=== PATIENT | female | born 1955 | race Caucasian/White ===

== ENCOUNTER → 2020-07-25 12:20 | Outpatient (CLI) | payer BC, MEDICARE, SELFPAY ==
--- NOTE | 2020-07-25 12:35 | NM_ITS ---
APPROVED REPORT Exam: Nuclear Stress Test Indication: HTN, DM, HYPERLIPIDEMIA, FM HX, C.P., SOB, FATIGUE Patient Location: Outpatient Stress Tech: Loraine Jacobson ID Tech:Ranad Esquivel SAVANNAHMario RT (R)(N)(M) Ht: 5 ft 1 in Wt: 140 lbs Bra Size: 42C HR: 75 bpm BP: 138/57 mmHg BSA: 1.62 m2 BMI: 26.4 History: HTN, DM, HYPERLIPIDEMIA, FM HX, C.P., SOB, FATIGUE Procedure: Patient received a 0.4 mg of intravenous Lexiscan, resting heart rate 75 bpm, resting blood pressure 138/57 mmHg, with Lexiscan maximum heart rate achived was 90 bpm which is Less than 85 % of the maximum predicted heart rate and blood pressure was 152/60 mmHg. With Lexiscan, patient denied any complaint of chest pain. Electrocardiogram Resting electrocardiogram showed sinus rhythm, with Lexiscan there is less than 1.[address] segment depression noted from the baseline EKG. The EKG portion of the Lexiscan is nondiagnostic. Cardiac Stress and Resting SPECT Images: Cardiac Stress and Resting SPECT images were obtained using technetium 99m Myoview 31.2 mCi stress and 10.32 mCi at rest. Gated SPECT for analysis of segmental wall motion and calculation of the ejection fraction also done. Cardiac stress and resting SPECT images showed decreased tracer activity in the inferior wall which improves on the resting images suggestive of reversible ischemia, there is transient ischemic dilatation of the left ventricle seen, raising the concerns for presence of multivessel coronary artery disease, computer derived ejection fraction is 63% with no regional wall motion abnormality, right ventricle is normal size and contractility. Conclusion: 1. The EKG portion of the Lexiscan is nondiagnostic. 2. Scintigraphic evidence of reversible ischemia involving the inferior wall, there is transient ischemic dilatation of the left ventricle seen, raising the concerns for presence of multivessel coronary artery disease, computer derived ejection fraction is 63% with no segmental wall motion abnormality, right ventricle is normal size and contractility. 3. Abnormal Lexiscan Myoview study. Electronically signed by : Nathan Devlin, 07/26/2020 15:22:03
--- NOTE | 2020-07-25 14:05 | CA_ITS ---
APPROVED REPORT Assistant Professor Of Criminal Justice: LYNETTE Laterality: Bilateral Study Quality: Good, Due to inability to position patient. Indications: right carotid bruit, dizziness Risk Factors Hyperlipidemia Smoking Doppler Spectral Velocity Analysis ECA (R) 182.20/12.90 cm/s ECA (L) 201.10/12.80 cm/s dICA (R) 342.50/56.70 cm/s dICA (L) 212.70/37.20 cm/s Gisell (R) 269.00/66.60 cm/s Gisell (L) 174.20/35.90 cm/s pICA (R) 86.70/15.40 cm/s pICA (L) 124.30/29.50 cm/s dCCA (R) 97.60/17.30 cm/s dCCA (L) 120.80/18.20 cm/s pCCA (R) 95.70/16.70 cm/s mCCA (L) 120.80/20.30 cm/s Vert (R) 107.90/1.90 cm/s Vert (L) 55.10/11.50 cm/s Subcl. 237.00/1.00 cm/s Subl. (L) 192.00/1.00 cm/s ICA/CCA 3.50 ICA/CCA 1.80 Findings Duplex evaluation demonstrates stenosis of the right proximal internal carotid artery in the range of 50-69% with PSV =140 cm/sec, EDV <100 cm/sec, and IC/CC Ratio <4.0.Duplex evaluation demonstrates stenosis of the left proximal internal carotid artery in the range of 50-69% with PSV =140 cm/sec, EDV <100 cm/sec, and IC/CC Ratio <4.0. Duplex evaluation demonstrates antegrade flow of the bilateral Vertebral Arteries. Right mid Internal carotid artery velocity exceeds 341 cm/sec, upper limits of stenotic classification. Conclusion Duplex evaluation demonstrates stenosis of the right proximal internal carotid artery in the range of 50-69% with PSV =140 cm/sec, EDV <100 cm/sec, and IC/CC Ratio <4.0.Duplex evaluation demonstrates stenosis of the left proximal internal carotid artery in the range of 50-69% with PSV =140 cm/sec, EDV <100 cm/sec, and IC/CC Ratio <4.0. Duplex evaluation demonstrates antegrade flow of the bilateral Vertebral Arteries. Electronically signed by : Reagan Shafer MD 07/25/2020 17:27:29
--- NOTE | 2020-07-25 14:05 | CA_ITS ---
APPROVED REPORT EXAM: Comprehensive 2D, Doppler, and color-flow Echocardiogram Fruit Packer: Thelma Fournier CRT Ht: 5 ft 2 in Wt: 143lbs BSA: 1.66 BP: 168/71 mmHg Indications: Chest Pain, Shortness of Breath, Hyperlipidemia, Hypertension/HDD, abn ekg. 2D Dimensions LVOT 1.66 cm (M/F) 1.5-2.5 LA Volume 35.90 mL LA Volume Index 21.60 mL/m2 (M/F) 16-34 M-Mode Dimensions RVDd 2.71 cm (0.9-2.6) LA Diam 3.52 cm (1.9-4.0) LVDd 3.74 cm (3.5-5.7) Ao Diam 3.41 cm (2.0-3.7) LVDs 2.60 cm (3.5-5.7) IVSd 1.60 cm (0.6-1.1) PWd 1.35 cm (0.6-1.1) EF (Teich) 58.70% FS 30.50% EDV (Teich) 59.60 mL ESV (Teich) 24.60 mL LV Diastology E Decel Time 280.00 (160-240 msec) E/A Ratio 0.90 MED E' 11.90 (< 7 cm/sec) MED A' 6.80 cm/s E'/MED E' Ratio 7.32 (>14) LAT E' 8.30 (<10 cm/sec) LAT A' 9.70 cm/s E/LAT E' Ratio 10.49 (>14) Aortic Valve AO Peak GR. 10.50 mmHg Mitral Valve MV A Velocity 97.00 (40-130 cm/s) E/A Ratio 0.90 MV Decel. Time 280.00 (160-240 ms) Pulmonary Valve PV Peak Velocity 121.00 (50-150 cm/s) Tricuspid Valve TR P. Velocity 250.00 cm/s Left Ventricle Atrium is mildly enlarged, left ventricle is normal size, mild concentric left ventricular hypertrophy, visually estimated ejection fraction is 55% with no regional wall motion abnormality, Doppler evidence of impaired LV relaxation seen, tissue Doppler is inadequate for estimation of the left atrial pressure. Right Ventricle Right atrium and right ventricle are normal size and contractility. Aortic Valve Aortic valve is minimally thickened and fibrosed, there is no aortic stenosis or aortic insufficiency. Mitral Valve Mitral valve has dense mitral annular calcification involving the posterior mitral leaflet, there is no mitral stenosis, there is mild to moderate eccentric jet of mitral regurgitation seen. Tricuspid Valve Tricuspid grossly normal, there is trace tricuspid regurgitation. Pulmonic Valve Pulmonic valve is poorly visualized. Great Vessels Aortic root is normal size. Pericardium No significant pericardial effusion noted. Conclusion 1. Enlarged left atrium, normal left ventricular size, mild concentric left ventricular hypertrophy, visually estimated ejection fraction 55% with no regional wall motion abnormality, Doppler evidence of impaired LV relaxation seen, tissue Doppler is inadequate for estimation of the left atrial pressure. 2. Mild to moderate mitral and mild tricuspid regurgitation. 3. No significant pericardial effusion noted. Electronically signed by : Nathan Devlin, 07/26/2020 16:40:12
--- NOTE | 2020-07-25 15:18 | CA_ITS ---
APPROVED REPORT Exam: Pharmacologic Technologist: Loraine Jacobson, Ht: 5 ft 7 in Wt: 143 lbs BSA: 1.75 m2 HR: 75 bpm BP: 138/57 mmHg Rhythm: NSR,PVC Medical History Medical History: HTN, Diabetes Medications: Omeprazole,,,,, Alprazolam,,,,, Aspirin,,,,, Metformin,,,,, Vitamin E,,,,, Glipizide,,,,, Meclizine,,,,, DilTiazem,,,,, SpirOnALACTONE,,,,, Levothyoxine,,,,, Furosemide,,,,, Allergies: No known drug allergies Cardiac Risk Factors: HTN, FHX of CAD Stress Test Details Test: LEXISCAN HR Resting HR: 78 bpm Max Heart Rate (APMHR): 153.374808 bpm Max HR Achieved: 92 bpm Target HR (85% APMHR): 130.104056 bpm % of APMHR: 60.13 Recovery HR: 80 bpm BP Resting BP: 138/57 mmHg Max BP: 157/62 mmHg Recovery BP: 139.0/63.0 mmHg ECG Resting ECG: NSR,PVC Clinical Exercise duration: 04:01 min Highest Stage Achieved: Stress ECG Conclusion PT HAD SOA, STOMACH DISCOMFORT, MALAISE, NO CP. RARE PVC. NO SIGNIFICANT ST CHANGES. UNREMARKABLE LEXISCAN STRESS. MYOVIEW IMAGES REPORTED SEPERATELY. Test Summary REST 01:51 . . 78 . 138/ 57 . . Stage 1 . . . . . . . Cardiolite injected Stage 1 01:00 . . 91 . . . . Stage 2 01:00 . . 90 . 152/ 60 . . Stage 3 01:00 . . 88 . . . . Stage 4 01:00 . . 86 . 135/ 53 . . Stage 4 01:01 . . 86 . 135/ 53 . Stop exercise at 04:01 RECOVERY 01:00 . . 84 . . . . RECOVERY 02:00 . . 83 . . . . RECOVERY 03:00 . . 84 . 157/ 62 . . RECOVERY 04:00 . . 83 . 157/ 62 . . RECOVERY 05:00 . . 82 . 139/ 63 . . RECOVERY 05:19 . . 80 . 139/ 63 . . Electronically signed by : Nathan Devlin, 07/26/2020 15:15:04
== END ==
PROVIDERS: PCP Family Medicine; Visit Provider Internal Medicine Cardiovascular Disease
DX: R07.89 Other chest pain (principal); R06.00 Dyspnea, unspecified; R94.31 Abnormal electrocardiogram [ECG] [EKG]; R09.89 Other specified symptoms and signs involving the circulatory and respiratory systems; E11.69 Type 2 diabetes mellitus with other specified complication; E78.5 Hyperlipidemia, unspecified; I10 Essential (primary) hypertension; J44.9 Chronic obstructive pulmonary disease, unspecified; Z82.49 Family history of ischemic heart disease and other diseases of the circulatory system; Z87.891 Personal history of nicotine dependence; Z79.84 Long term (current) use of oral hypoglycemic drugs
CPT/HCPCS: 78452; 93017; 93306; 93880; A9502; J2785

== ENCOUNTER 2020-08-03 09:13 | Day surgery (SDC) | payer BC, MEDICARE, SELFPAY ==
[2020-08-03] VITALS (14 sets, daily range): BP systolic 125–165; BP diastolic 65–97; PULSE 61–80; RESP 16–18; TEMP 36.9; O2SAT 90–98; BMI 25.9
--- NOTE | 2020-08-03 07:17 | IR_ITS ---
APPROVED REPORT Patient Location: Outpatient Handle Assembler: RYAN Alejandra RT (R) PROCEDURES Left heart catheterization Left ventriculogram Selective coronary angiogram Drug-eluting stent deployment to the ostial proximal mid and distal dominant right coronary artery in a contiguous manner INDICATION High risk Myoview, Angina pectoris class III-IV, Coronary disease Informed consent was obtained prior to the procedure. COMPLICATIONS NONE Estimated Blood Loss: LESS THAN 10 ML TECHNIQUE One percent lidocaine used to anesthetize the right anterior aspect of the wrist. The right radial artery was accessed via the Seldinger technique. A 6 Montenegrin sheath was placed in the right radial artery. 2.5 mg of verapamil, 800 mcg of nitroglycerin, 1mg Lidocaine and 5000 U Heparin were given through the arterial sheath. The trap catheter was also used to perform left heart catheterization, left ventriculogram and selective coronary angiogram. At the end of the diagnostic angiogram therapeutic heparin was administered giving a therapeutic ACT. And I Avelina right guide catheter was placed in the right coronary artery and a Choice PT extra-support wire was placed distally. A 3 mm x 12 mm noncompliant balloon was deployed at 18 vignesh reducing the ostial stenosis. This allowed the passage of a 3 mm x 38 mm resolute [place] stent to be placed in the right coronary cusp through the ostia into the proximal segment and deployed at 20 vignesh. A 3 mm x 27 mm balloon was then advanced and would not go beyond the midportion of the right coronary artery. This was never the less still inflated at 20 vignesh. Following this a telescope guide liner was advanced which allowed the delivery of a 2.5 x 27 mm noncompliant balloon to be deployed distally at 15 vignesh and then 20 vignesh in the distal and mid segment. Following this a 2.5 x 38 mm resolute [place] stent was then deployed in the distal right coronary artery at 20 vignesh reducing the critical stenosis. An additional 3 mm x 38 mm resolute Daryl stent was then placed between the 2 stents and deployed at 20 vignesh. LINDA II flow was present at the beginning of the procedure with LINDA-3 flow at the end of the procedure. After achieving excellent angiographic results the apparatus was removed the sheath was removed good hemostasis was achieved using TR banding patient was transferred to the postop holding in stable condition. ANGIOGRAPHIC RESULTS The left main artery Normal The left anterior descending artery Has proximal concentric calcified stenosis with mid vessel 20% stenoses The circumflex artery Is a nondominant yet still large vessel giving rise to 3 moderate to large obtuse marginal arteries. Ostially the circumflex artery has a 50% stenosis which then extends into the ostium of the 2.5 mm first obtuse marginal artery. Following the obtuse marginal artery an additional 40% stenosis is present. In between the second and third obtuse marginal is a 30% stenosis. The second obtuse obtuse marginal artery has mid vessel 30% stenosis while the terminal obtuse marginal artery has a proximal 40 to 50% concentric stenosis The right coronary artery Is a dominant vessel and has an ostial 95% stenosis followed by a proximal 50% followed by mid vessel 70% followed by concentric 80% stenoses followed by distal 90% stenosis. LINDA II flow is present distally with some [id number] collaterals The PEREZ ventriculogram reveals Normal 65% The left ventricular end-diastolic pressure 10 mmHg IMPRESSION Critical dominant right coronary disease as described above Successful reconstruction of the ostial proximal mid and distal dominant right coronary artery reducing critical disease to 0% with 3 contiguous drug-el
[2020-08-03 09:59] LABS: Basophils # 0.1 K/mm3 (0-0.2); Basophils % 0.8 % (0.1-2.0); Eosinophils # 0.2 K/mm3 (0.0-0.4); Eosinophils % 1.8 % (0.1-12.0); Hematocrit 43.9 % (37.0-47.0); Hemoglobin 14.3 g/dL (12.2-16.2); Lymphocytes # 2.5 K/mm3 (0.7-4.5); Lymphocytes % 31.7 % (10-50); Mean Corpuscular HGB Conc 32.7 g/dL (31.8-35.4); Mean Corpuscular Hemoglobin 29.8 pg (27.0-31.2); Mean Corpuscular Volume 91.2 fl (81-99); Monocytes # 0.6 K/mm3 (0.1-1.0); Monocytes % 7.1 % (1.7-9.3); Neutrophils # 4.7 K/mm3 (1.8-7.8); Neutrophils % 58.6 % (37.0-80.0); Platelet Count 153 K/mm3 (142-424); Red Blood Count 4.81 M/mm3 (4.20-5.40); Red Cell Distribution Width 13.6 % (11.5-17.5)
[2020-08-03 10:01] LABS: Chloride 104 mmol/L (98-107); Potassium 4.2 mmoL/L (3.5-5.1); Sodium 138 mmol/L (136-145)
[2020-08-03 10:04] LABS: Anion Gap 12.2 mEq/L (5-15); Blood Urea Nitrogen 8 mg/dl (7-17); Calcium 9.6 mg/dl (8.4-10.2); Carbon Dioxide 26 mmol/L (22.0-30.0); Creatinine Clearance Estimated 56 mL/min (50-200); Estimated Glomerular Filt Rate 83 ml/min (>60); GFR (African American) 101 ML/MIN (>60); Glucose 155 mg/dl (74-100)
[2020-08-03 10:32] LABS: Coronavirus 19 IgG Antibody Positive (Negative); Coronavirus 19 IgM Antibody Positive (Negative)
--- NOTE | 2020-08-03 14:13 | HMH.PHACLD ---
Roxann Medeiros has received discharge medication counseling on the following medications: PATIENT IS CURRENTLY TAKING ASPIRIN 325 MG DAILY AND ROSUVASTATIN 5 MG HS. MD OFFICE STARTED METOPROLOL SUCCINATE 25 MG DAILY ON 08/01/20 BUT PATIENT HAS NOT PICKED UP PRESCRIPTION YET FROM PHARMACY PER PHARMACY. INSTRUCTED PATIENT THAT SHE WOULD HAVE A PRESCRIPTION FOR METOPROLOL SUCCINATE 25 MG DAILY WELL A NEW PRESCRIPTION FOR LOSARTAN 25 MG DAILY. PATIENT ALSO STARTED ON BRILINTA 90 MG BID WHICH WAS FILLED FOR THE FIRST MONTH BY CLINIC PHARMACY.
[2020-08-03 14:34] LABS: CATHL Activated Clotting Time > 400 SEC (74-125)
== END 2020-08-03 14:59 | disposition home or self-care (01) ==
PROVIDERS: PCP Family Medicine; Visit Provider Internal Medicine
DX: I25.118 Atherosclerotic heart disease of native coronary artery with other forms of angina pectoris (principal); R06.00 Dyspnea, unspecified; R94.39 Abnormal result of other cardiovascular function study; E78.5 Hyperlipidemia, unspecified; E11.9 Type 2 diabetes mellitus without complications; J44.9 Chronic obstructive pulmonary disease, unspecified; I65.23 Occlusion and stenosis of bilateral carotid arteries; I10 Essential (primary) hypertension
CPT/HCPCS: 80048; 85025; 85347; 86328; 92928; 93458; 99152; 99153; C1725; C1769; C1876; C9600; J1644; Q9967

== ENCOUNTER → 2020-08-22 14:04 | Outpatient (CLI) | payer BC, MEDICARE, SELFPAY ==
--- NOTE | 2020-08-22 14:06 | US_ITS ---
APPROVED REPORT Exam Type: Ankle to Brachial Index Microcomputer Technician: RT Paty(R) Indications Claudication: Bilaterally Rest Pain: Bilaterally History of Smoking Risk Factors CAD Diabetes History of Smoking Pressures/Indices Right Indices Left Indices Brachial 158.00 mmHg Brachial 145.00 mmHg High Thigh 154.00 mmHg 0.97 High Thigh 123.00 mmHg 0.78 Calf 156.00 mmHg 0.99 Calf 100.00 mmHg 0.63 Ankle(PT) 145.00 mmHg 0.92 Ankle(PT) 125.00 mmHg 0.79 Ankle(DP) 151.00 mmHg 0.96 Ankle(DP) 113.00 mmHg 0.72 Digit 119.00 mmHg 0.75 Digit 91.00 mmHg 0.58 Findings RT GORDON=1.0 LT GORDON=0.8 RT TBI=0.8 LT TBI=0.6 Normal waveforms Normal pulses Left lower extremity calf GORDON ratio is diminished at 0.63 as was the left digit ratio of 0.58 Conclusion RT GORDON=1.0 LT GORDON=0.8 RT TBI=0.8 LT TBI=0.6 Normal waveforms Normal pulses Left lower extremity calf GORDON ratio is diminished at 0.63 suggesting moderate arterial disease Electronically signed by : Reagan Shafer MD 08/22/2020 16:42:14
== END ==
PROVIDERS: PCP Family Medicine; Visit Provider Physician Assistant
DX: R06.00 Dyspnea, unspecified (principal); I65.23 Occlusion and stenosis of bilateral carotid arteries; E11.9 Type 2 diabetes mellitus without complications; E78.5 Hyperlipidemia, unspecified; I10 Essential (primary) hypertension; I73.9 Peripheral vascular disease, unspecified; J44.9 Chronic obstructive pulmonary disease, unspecified; Z79.84 Long term (current) use of oral hypoglycemic drugs
CPT/HCPCS: 93923

== ENCOUNTER → 2020-12-03 11:37 | Outpatient (CLI) | payer BC, MEDICARE, SELFPAY ==
[2020-12-03 11:59] LABS: Basophils # 0.1 K/mm3 (0-0.2); Basophils % 0.7 % (0.1-2.0); Eosinophils # 0.2 K/mm3 (0.0-0.4); Eosinophils % 2.8 % (0.1-12.0); Hematocrit 42.8 % (37.0-47.0); Lymphocytes # 2.1 K/mm3 (0.7-4.5); Mean Corpuscular HGB Conc 32.7 g/dL (31.8-35.4); Mean Corpuscular Hemoglobin 31.4 pg (27.0-31.2); Mean Corpuscular Volume 95.9 fl (81-99); Mean Platelet Volume 8.3 fl (7.4-10.4); Monocytes # 0.5 K/mm3 (0.1-1.0); Monocytes % 7.1 % (1.7-9.3); Neutrophils # 4.3 K/mm3 (1.8-7.8); Neutrophils % 60.3 % (37.0-80.0); Platelet Count 148 K/mm3 (142-424); Red Blood Count 4.46 M/mm3 (4.20-5.40); Red Cell Distribution Width 13.2 % (11.5-17.5); White Blood Count 7.1 K/mm3 (4.8-10.8)
[2020-12-03 12:23] LABS: Troponin I < 0.01 ng/ml (0.00-0.034)
[2020-12-03 12:25] LABS: Free T4 (Free Thyroxine) 1.22 ng/dl (0.78-2.19)
[2020-12-03 20:56] LABS: Chloride 103 mmol/L (98-107)
[2020-12-03 20:57] LABS: Potassium 3.9 mmoL/L (3.5-5.1); Sodium 139 mmol/L (136-145)
[2020-12-03 20:59] LABS: Blood Urea Nitrogen 8 mg/dl (7-17); Estimated Glomerular Filt Rate 62 ml/min (>60); GFR (African American) 76 ML/MIN (>60)
[2020-12-03 21:00] LABS: Anion Gap 13.9 mEq/L (5-15); Calcium 8.9 mg/dl (8.4-10.2); Carbon Dioxide 26 mmol/L (22.0-30.0); Glucose 203 mg/dl (74-100)
[2020-12-03 21:31] LABS: Thyroid Stimulating Hormone 5.05 uIU/mL (0.465-4.68)
== END ==
PROVIDERS: Visit Provider Nurse Practitioner Family
DX: R06.00 Dyspnea, unspecified (principal); I20.9 Angina pectoris, unspecified; E78.2 Mixed hyperlipidemia; I10 Essential (primary) hypertension; I65.23 Occlusion and stenosis of bilateral carotid arteries; Z95.5 Presence of coronary angioplasty implant and graft
CPT/HCPCS: 36415; 80048; 84439; 84443; 84484; 85025

== ENCOUNTER → 2020-12-06 10:59 | Outpatient (CLI) | payer BC, MEDICARE, SELFPAY ==
--- NOTE | 2020-12-06 | CA_ITS ---
APPROVED REPORT Exam: Pharmacologic Technologist: Niya Brown Ht: 5 ft 2 in Wt: 152 lbs BSA: 1.70 m2 HR: 72 bpm BP: 169/64 mmHg Indications: Chest pain Medical History Medications: Omeprazole,,,,, Alprazolam,,,,, Levothyroxine,,,,, Isosorbide,,,,, Aspirin,,,,, Metformin,,,,, Vitamin E,,,,, Losartan,,,,, Glipizide,,,,, Plavix,,,,, Meclizine,,,,, SpirOnolactone,,,,, Stress Test Details Test: LEXISCAN HR Resting HR: 77 bpm Max Heart Rate (APMHR): 153.142407 bpm Max HR Achieved: 89 bpm Target HR (85% APMHR): 130.502683 bpm % of APMHR: 58.17 Recovery HR: 81 bpm BP Resting BP: 169.0/64.0 mmHg Max BP: 171.0/62.0 mmHg Recovery BP: 161.0/61.0 mmHg ECG Resting ECG: Normal sinus rhythm, ST abnormalities inferiorly and laterally. Clinical Exercise duration: 04:02 min Highest Stage Achieved: Exercise capacity: 1.0 METs Stress ECG Conclusion Symptoms: Brief shortness of air, light headed. No chest pain. Arrhythmias/Ectopy: None ST-T Changes: No significant changes. Conclusion: Unremarkable lexiscan stress. Myoview images reported separately. Test Summary REST . . . . . . . Resting REST 05:01 . . 77 . 169/ 64 . . Stage 1 . . . . . . . Myoview Injected Stage 1 01:00 . . 89 . . . . Stage 2 01:00 . . 82 . 171/ 62 . . Stage 3 01:00 . . 81 . 158/ 56 . . Stage 4 01:00 . . 80 . 157/ 58 . . Stage 4 01:02 . . 79 . 157/ 58 . Stop exercise at 04:02 RECOVERY 01:00 . . 81 . . . . RECOVERY 02:00 . . 79 . 153/ 61 . . RECOVERY 03:00 . . 81 . 161/ 61 . . RECOVERY 03:19 . . 78 . 161/ 61 . . Electronically signed by : Nathan Devlin MD 12/06/2020 16:41:26
--- NOTE | 2020-12-06 11:00 | NM_ITS ---
APPROVED REPORT Exam: Nuclear Stress Test Indication: Chest pain, SOB, Fatigue, CAD, HTN, DM, High cholesterol, Family history Patient Location: Outpatient Stress Tech: Niya Brown OR Tech:Sarah Beth Sharpe RYAN RT(R)(N) Ht: 5 ft 0 in Wt: 145 lbs Bra Size: 38D HR: 77 bpm BP: 169/64 mmHg BSA: 1.63 m2 History: Chest pain, SOB, Fatigue, CAD, HTN, DM, High cholesterol, Family history Procedure: Patient received a 0.4 mg of intravenous Lexiscan, resting heart rate 77 bpm, resting blood pressure 169/64 mmHg, with Lexiscan maximum heart rate achived was 89 bpm which is Less than 85 % of the maximum predicted heart rate and blood pressure was 171/62 mmHg. Electrocardiogram Resting electrocardiogram shows sinus rhythm nonspecific ST-T changes, with Lexiscan there is less than 1.[address] segment depression noted from the baseline EKG. The EKG portion of the Lexiscan is nondiagnostic. Cardiac Stress and Resting SPECT Images: Cardiac Stress and Resting SPECT images were obtained using technetium 99m Myoview 32.7 mCi stress and 10.23 mCi at rest. Gated SPECT for analysis of segmental wall motion and calculation of the ejection fraction also done. Prone images were also obtained. Cardiac stress and rest SPECT images show uniform myocardial activity without segmental perfusion abnormality, computer derived ejection fraction is over 65% with no regional wall motion abnormality, right ventricle is normal size and contractility. Conclusion: 1. The EKG portion of the Lexiscan is nondiagnostic. 2. No scintigraphic evidence of reversible ischemia seen, computer derived ejection fraction is over 65% with no regional wall motion abnormality, right ventricle is normal size and contractility. 3. Normal Lexiscan Myoview study. Electronically signed by : Nathan Devlin MD 12/06/2020 16:43:59
== END ==
PROVIDERS: PCP Family Medicine; Visit Provider Nurse Practitioner Family
DX: R06.00 Dyspnea, unspecified (principal); I25.10 Atherosclerotic heart disease of native coronary artery without angina pectoris; I10 Essential (primary) hypertension; E78.2 Mixed hyperlipidemia; I65.23 Occlusion and stenosis of bilateral carotid arteries; Z95.5 Presence of coronary angioplasty implant and graft
CPT/HCPCS: 78452; 93017; A9502; J2785

== ENCOUNTER → 2020-12-10 12:07 | Outpatient (CLI) | payer BC, MEDICARE, SELFPAY ==
[2020-12-10 12:31] LABS: Basophils # 0.1 K/mm3 (0-0.2); Basophils % 0.9 % (0.1-2.0); Eosinophils # 0.3 K/mm3 (0.0-0.4); Eosinophils % 3.3 % (0.1-12.0); Hematocrit 44.3 % (37.0-47.0); Hemoglobin 14.7 g/dL (12.2-16.2); Lymphocytes # 2.9 K/mm3 (0.7-4.5); Lymphocytes % 38.8 % (10-50); Mean Corpuscular HGB Conc 33.1 g/dL (31.8-35.4); Mean Corpuscular Hemoglobin 31.6 pg (27.0-31.2); Mean Corpuscular Volume 95.4 fl (81-99); Mean Platelet Volume 7.9 fl (7.4-10.4); Monocytes # 0.6 K/mm3 (0.1-1.0); Monocytes % 8.6 % (1.7-9.3); Neutrophils # 3.6 K/mm3 (1.8-7.8); Neutrophils % 48.4 % (37.0-80.0); Platelet Count 195 K/mm3 (142-424); Red Blood Count 4.64 M/mm3 (4.20-5.40); White Blood Count 7.4 K/mm3 (4.8-10.8)
[2020-12-10 15:56] LABS: Chloride 103 mmol/L (98-107); Potassium 4.7 mmoL/L (3.5-5.1); Sodium 137 mmol/L (136-145)
[2020-12-10 15:59] LABS: Anion Gap 12.7 mEq/L (5-15); Blood Urea Nitrogen 8 mg/dl (7-17); Calcium 9.2 mg/dl (8.4-10.2); Carbon Dioxide 26 mmol/L (22.0-30.0); Estimated Glomerular Filt Rate 55 ml/min (>60); GFR (African American) 67 ML/MIN (>60); Glucose 233 mg/dl (74-100)
== END ==
PROVIDERS: Nurse Practitioner Family; Visit Provider Internal Medicine
DX: Z01.812 Encounter for preprocedural laboratory examination (principal); Z20.822 Contact with and (suspected) exposure to COVID-19; R06.00 Dyspnea, unspecified; I20.9 Angina pectoris, unspecified
CPT/HCPCS: 36415; 80048; 85025; C9803; U0003; U0005

== ENCOUNTER 2020-12-12 09:39 | Day surgery (SDC) | payer BC, MEDICARE, SELFPAY ==
[2020-12-12] VITALS (13 sets, daily range): BP systolic 113–216; BP diastolic 53–89; PULSE 63–73; RESP 16–18; TEMP 36.9; O2SAT 90–100; BMI 27.8
--- NOTE | 2020-12-12 07:10 | IR_ITS ---
APPROVED REPORT Estate Planning Attorney: RYAN Hager RT (R) PROCEDURES Left heart catheterization Left ventriculogram Selective coronary angiogram Drug-eluting stent deployment to the ostial proximal dominant right coronary Drug-eluting stent deployment to the posterior lateral ventricular branch Drug-eluting stent deployment to the distal dominant right coronary INDICATION Coronary artery disease, Class III-IV angina pectoris, Informed consent was obtained prior to the procedure. Estimated Blood Loss: less than 10 ml TECHNIQUE One percent lidocaine used to anesthetize the right anterior aspect of the wrist. The right radial artery was accessed via the Seldinger technique. A 6 Icelandic sheath was placed in the right radial artery. 2.5 mg of verapamil, 800 mcg of nitroglycerin, 1mg Lidocaine and 5000 U Heparin were given through the arterial sheath. The trap catheter was also used to perform left heart catheterization, left ventriculogram and selective coronary angiogram. At the end the diagnostic angiogram and I Avelina right guide catheter was placed in the right coronary artery and therapeutic heparin was administered giving a therapeutic ACT. Choice PT wire was placed distally and a 3.5 x 18 mm resolute Daryl stent was placed in the proximal segment reducing the stenosis to 0% after being deployed at 20 vignesh. An additional 3.5 x 8 mm resolute [place] stent was placed proximal to this overlapping the ostium and deployed at 24 vignesh reducing the hemodynamically severe stenosis to 0%. Noticed there was significant dampening upon catheter insertion with the initial diagnostic catheter. At the end of the procedure an additional 2.25 x 8 mm resolute [place] stent was placed in the posterior lateral branch and deployed at 16 vignesh and then 20 vignesh reducing the stenosis. There was a small 2 mm gap between a previously placed stent in the current place stent therefore an additional 2.5 x 8 mm resolute [place] stent was placed between these 2 areas of the distal dominant right coronary artery extending into the posterior lateral branch and deployed at 20 vignesh reducing the stenosis to 0%. LINDA-3 flow was present down the main right coronary artery and posterior lateral branch before and after the procedure. At the end the procedure the apparatus was removed the sheath was removed and emesis was achieved using TR banding patient was transferred to the postoperative stable condition ANGIOGRAPHIC RESULTS The left main artery Normal The left anterior descending artery Is a large-caliber vessel and has mild diffuse 10 to 20% stenoses The circumflex artery Circumflex artery is nondominant yet still gives rise to a large ramus intermedius 2.75 mm in diameter. The ostium of the circumflex artery and the first obtuse marginal artery or ramus intermedius have at least 50% stenoses. Immediately distal to the ramus intermedius the circumflex artery has an additional 50% stenosis followed by a mid vessel 30% stenosis. The terminal third obtuse marginal artery 2.5 mm in diameter and has a mid vessel 50 to 60% stenosis The right coronary artery Is a dominant vessel and has a stent in the ostial proximal mid and distal segment in a continuous manner. The ostium is hemodynamically severe and tight with a stenosis greater than 70% with significant catheter dampening upon insertion. The remaining portion of the proximal stent has a 30 to 40% concentric stenosis. Distally the posterior lateral branch has an eccentric 70% stenosis at a 2.25 mm segment The PEREZ ventriculogram reveals Hyperdynamic 75% The left ventricular end-diastolic pressure 20 mmHg IMPRESSION Severe disease in the ostial right coronary artery and distal branch vessel a
[2020-12-12 14:49] LABS: CATHL Activated Clotting Time > 400 SEC (74-125)
--- NOTE | 2020-12-12 15:10 | HMH.PHACLD ---
Roxann Medeiros has received discharge medication counseling on the following medications: -PLAVIX -ASA -ATORVASTATIN (DISCUSSED ADES, HOW TO TAKE, WHEN TO CONTACT MD) -LOSARTAN -METOPROLOL -DISCUSSED STOPPING AMLODPINE AND STARTING DILTIAZEM. PATIENT UNDERSTOOD AND STATES THAT SHE THINKS SHE WAS ALREADY ON DILTIAZEM PRIOR TO THE AMLODIPINE. DISCUSSED RE-STARTING METFORMIN ON 12/14/20.
== END 2020-12-12 14:54 | disposition home or self-care (01) ==
LOC: CATHLAB 09:43
PROVIDERS: PCP Family Medicine; Visit Provider Internal Medicine
DX: I25.118 Atherosclerotic heart disease of native coronary artery with other forms of angina pectoris (principal); E78.5 Hyperlipidemia, unspecified; I10 Essential (primary) hypertension; I65.23 Occlusion and stenosis of bilateral carotid arteries; E03.9 Hypothyroidism, unspecified; Z79.899 Other long term (current) drug therapy; Z79.01 Long term (current) use of anticoagulants; J44.9 Chronic obstructive pulmonary disease, unspecified; E11.9 Type 2 diabetes mellitus without complications; Z79.84 Long term (current) use of oral hypoglycemic drugs; I70.203 Unspecified atherosclerosis of native arteries of extremities, bilateral legs; Z87.891 Personal history of nicotine dependence
CPT/HCPCS: 85347; 92928; 92929; 93458; 99152; 99153; C1725; C1769; C1874; C1876; C9600; C9601; J1644; Q9967

== ENCOUNTER → 2020-12-24 10:29 | Outpatient (CLI) | payer BC, MEDICARE, SELFPAY ==
[2020-12-24 10:52] LABS: Chloride 103 mmol/L (98-107)
[2020-12-24 10:53] LABS: Potassium 4.9 mmoL/L (3.5-5.1); Sodium 139 mmol/L (136-145)
[2020-12-24 10:56] LABS: Anion Gap 13.9 mEq/L (5-15); Blood Urea Nitrogen 13 mg/dl (7-17); Calcium 8.8 mg/dl (8.4-10.2); Carbon Dioxide 27 mmol/L (22.0-30.0); Estimated Glomerular Filt Rate 55 ml/min (>60); GFR (African American) 67 ML/MIN (>60); Glucose 354 mg/dl (74-100)
[2020-12-24 11:51] LABS: Basophils # 0.1 K/mm3 (0-0.2); Basophils % 0.8 % (0.1-2.0); Eosinophils # 0.2 K/mm3 (0.0-0.4); Eosinophils % 2.5 % (0.1-12.0); Hematocrit 41.3 % (37.0-47.0); Hemoglobin 13.7 g/dL (12.2-16.2); Lymphocytes # 2.4 K/mm3 (0.7-4.5); Lymphocytes % 28.3 % (10-50); Mean Corpuscular HGB Conc 33.1 g/dL (31.8-35.4); Mean Corpuscular Hemoglobin 31.8 pg (27.0-31.2); Mean Platelet Volume 9.3 fl (7.4-10.4); Monocytes # 0.7 K/mm3 (0.1-1.0); Monocytes % 8.4 % (1.7-9.3); Neutrophils % 59.9 % (37.0-80.0); Platelet Count 163 K/mm3 (142-424); Red Cell Distribution Width 13.4 % (11.5-17.5); White Blood Count 8.3 K/mm3 (4.8-10.8)
== END ==
PROVIDERS: Visit Provider Internal Medicine
DX: I25.10 Atherosclerotic heart disease of native coronary artery without angina pectoris (principal)
CPT/HCPCS: 36415; 80048; 85025

== ENCOUNTER → 2021-01-10 14:16 | Outpatient (CLI) | payer BC, MEDICARE, SELFPAY ==
--- NOTE | 2021-01-10 15:10 | PC.NURSE ---
PFT completed on Pt without incident. Albuterol 0.083% given via HHN, per protocol, Pt tolerated tx well.
== END ==
PROVIDERS: PCP Family Medicine; Visit Provider Urology
DX: R06.09 Other forms of dyspnea (principal)
CPT/HCPCS: 94060; 94726; 94729

== ENCOUNTER → 2021-02-12 14:45 | Outpatient (CLI) | payer BC, MEDICARE, SELFPAY ==
--- NOTE | 2021-02-12 14:46 | CT_ITS ---
PROCEDURE: CT LUNG SCREENING CLINICAL INDICATION: lung cancer screening COMPARISON: No exams were available for comparison TECHNIQUE: The exam was performed on a GE Light Speed [address] scanner using 2.90 mGy CTDI. A low dose helical CT CHEST was performed on a multi-detector scanner. All CT scans at the facility use one or more dose reduction, viz: automated exposure control, ma/kV adjustment per patient size (including targeted exams where dose is matched to indication, i.e. head), or iterative reconstruction technique. The LDCT was performed in a facility that meets the criteria for the screening program. Data regarding this exam was submitted to ACR which is an approved registry. The order for this exam indicates that it came as a result of a lung cancer screening counseling shard decision-making visit that included all the elements required of such a visit including smoking cessation. The radiologist interpreting this exam meets the CMS criteria for the LDCT lung cancer screening program. The exam is reported using the Lung-RADS classification scale and reported to the ACR registry. NOTE: This study was performed for the specific purposes of lung cancer screening and is not an alternative to diagnostic chest CT. RADIATION DOSE: CTDI vol(CT dose Index-volume) = 2.90mG DLP (Dose Length Product) = 92.73 mGcm FINDINGS: COPD with centrilobular emphysema and scattered areas of scarring. Calcified granuloma superior segment left lower lobe. No suspicious pulmonary nodules apparent. There are areas of interlobular septal thickening with associated centrilobular emphysematous changes or lucencies in the pulmonary parenchyma. Developing pulmonary fibrosis is considered. OTHER FINDINGS: Coronary artery calcifications and/or stents. There are mildly prominent mediastinal lymph nodes with the largest ruslan area in the right precarinal region at approximately 2.3 by 1.9 cm. Prior anterior cervical disc fusion in the lower cervical spine IMPRESSION: Lung-RADS Category 2 Benign Appearance or Behavior Follow-up: Continue annual screening with LDCT in 12 months COPD with centrilobular emphysema and possible developing pulmonary fibrosis. Dictated by: Reagan Shafer MD 02/18/2021 09:02 Reagan Shafer MD in [place] 02/18/2021 09:02
== END ==
PROVIDERS: PCP Family Medicine; Visit Provider Internal Medicine Pulmonary Disease
DX: Z87.891 Personal history of nicotine dependence (principal); Z12.2 Encounter for screening for malignant neoplasm of respiratory organs
CPT/HCPCS: 71271

== ENCOUNTER → 2021-04-10 11:56 | Outpatient (CLI) | payer BC, MEDICARE, SELFPAY ==
--- NOTE | 2021-04-10 12:19 | CT_ITS ---
FINAL REPORT CLINICAL HISTORY: claudication patient states low back pain, diff walking , doc to rule out blockages FINDINGS: Thin section axial CT images of the abdomen, pelvis and lower extremities were obtained with contrast. Multiplanar reformatted images were also obtained and reviewed. ABDOMEN AND PELVIS: There is moderate vascular calcification. There is no abdominal aortic aneurysm or dissection. The celiac axis and proximal superior mesenteric artery are unremarkable. There are calcifications near the origins of the renal arteries without significant stenosis. There is significant calcified plaque of the bilateral common iliac arteries. There is mild stenosis of the right common iliac artery. It is difficult to accurately evaluate the left common iliac artery but there is probably greater than 50% stenosis. There is mild plaque in the external iliac arteries without significant stenosis. The inferior mesenteric artery is patent. The internal iliac arteries are patent. RIGHT LOWER EXTREMITY: There is no significant stenosis of the right common femoral or superficial femoral arteries. The right deep femoral artery is patent. The right popliteal artery is patent. There is three-vessel runoff to the distal lower leg. LEFT LOWER EXTREMITY: There is no significant stenosis of the left common femoral or superficial femoral arteries. The left deep femoral artery is patent. The left popliteal artery is patent. There is occlusion of the middle left anterior tibial artery. The posterior tibial and peroneal arteries are patent to the ankle. OTHER FINDINGS: There is mild atelectasis or scarring in the lung bases. There is a 4 mm nodule medial right lung base. The liver has a lobular contour that may represent cirrhosis. There has been cholecystectomy. There is mild biliary ductal dilatation likely due to post cholecystectomy change. The spleen is mildly enlarged at 14 cm. There is mild right renal scarring. There are bilateral renal cysts. The appendix is normal. There is diverticulosis of the sigmoid colon. There are large calcifications in the right gluteal region likely representing fat necrosis. IMPRESSION: Mild and moderate calcified plaque. Abnormal left common iliac with probable greater than 50% stenosis. Occlusion of the middle left anterior tibial artery. Three-vessel runoff to the ankle on the right. Findings worrisome for cirrhosis. Reviewed, Interpreted and Dictated by Mark Zapata III, MD Transcribed by Jarred Hazel Authenticated by Mark Zapata III, MD on 04/10/2021 04:00:13 PM [facility]
[2021-04-10 12:37] LABS: Blood Urea Nitrogen 18 mg/dl (7-17); Estimated Glomerular Filt Rate 45 ml/min (>60); GFR (African American) 54 ML/MIN (>60)
== END ==
PROVIDERS: PCP Family Medicine; Visit Provider Internal Medicine
DX: R06.00 Dyspnea, unspecified (principal); I25.118 Atherosclerotic heart disease of native coronary artery with other forms of angina pectoris; E78.2 Mixed hyperlipidemia; I10 Essential (primary) hypertension; I65.23 Occlusion and stenosis of bilateral carotid arteries; I73.9 Peripheral vascular disease, unspecified; R68.89 Other general symptoms and signs; Z95.5 Presence of coronary angioplasty implant and graft
CPT/HCPCS: 36415; 75635; 82565; 84520; Q9967

== ENCOUNTER 2021-04-23 08:14 | Day surgery (SDC) | payer BC, MEDICARE, SELFPAY ==
[2021-04-23] VITALS (14 sets, daily range): BP systolic 106–164; BP diastolic 46–65; PULSE 70–76; RESP 16–18; TEMP 36.8; O2SAT 91–100; BMI 28.5
--- NOTE | 2021-04-23 07:10 | IR_ITS ---
APPROVED REPORT Patient Location: Outpatient [employer] Tech: RYAN Alejandra RT (R) PROCEDURES Right femoral arterial access Left femoral arterial access Stent deployment to the distal abdominal aorta extending into the right common iliac artery Stent deployment to the distal abdominal aorta extending into the left common iliac artery Stent deployment to the distal abdominal aorta Aortic bifurcation reconstruction INDICATION Hudson claudication class III, Peripheral artery disease, Bilateral common iliac artery stenosis, Abnormal GORDON Informed consent was obtained prior to the procedure. COMPLICATIONS None Estimated Blood Loss: Less than 10 mls TECHNIQUE 1% lidocaine used to anesthetize the left femoral groin. The left femoral artery was accessed via the Seldinger technique. A 5 Niuean sheath was placed in the left femoral artery and a pigtail catheter was advanced using an advantage wire into the distal abdominal aorta. Distal abdominal aortography was performed. Following this 1% lidocaine was used to anesthetize the right groin and the right femoral artery was accessed via the Salinger technique. A 6 Niuean sheath was placed in the right femoral artery. The 5 Niuean sheath in left femoral artery was upsized to a 6 Niuean sheath. Therapeutic heparin was administered giving a therapeutic ACT. Two 8 mm x 57 mm balloon mounted stents were placed into the distal abdominal aorta extending into the bilateral common iliac arteries. The stents were simultaneously deployed at 12 vignesh. Post stent angiography demonstrated excellent sizing through the common iliac arteries with an adequate expansion of the stents in the distal abdominal aorta. An additional 9 mm x 27 mm balloon mounted stent was then advanced into the right groin after the 6 Niuean sheath was upsized to a 7 Niuean sheath. The stent was placed into the distal abdominal aorta yet still overlapping the 8 mm stent which extended into the right common iliac artery. An additional 9 mm x 20 mm balloon was then placed adjacent to the stent and inside the left common iliac artery stent and then deployed. Both balloons were deployed at 12 vignesh. Repeat angiography demonstrated excellent apposition of the stents to the abdominal aortic wall with excellent inline flow into the common iliac arteries. The balloons were brought back and placed into the ostia of the common iliac arteries and deployed at 4 vignesh to post dilate. After achieving excellent angiograph results the apparatus was removed the groins were reprepped gloves were changed sheath was removed good hemostasis was achieved bilaterally using Perclose devices. Patient was transferred to the postop holding in stable condition ANGIOGRAPHIC RESULTS The distal abdominal aorta is calcified with no significant stenosis greater than 30 to 40%. Right common iliac artery has an ostial calcified greater than 50% stenosis with additional calcified eccentric 40% stenoses. Right internal iliac artery is patent as is the right external iliac artery and right common femoral artery. The right profunda femoris artery is widely patent as is the proximal portion of the right superficial femoral artery Left common iliac artery is densely calcified in the ostial proximal segment creating a 50 and 80% contiguous stenosis. The left internal iliac artery is patent and the left external iliac artery has eccentric 20 to 30% stenoses. The left common femoral artery is patent as is the left profunda femoris artery and proximal portion of the left superficial femoral artery IMPRESSION Severe calcified bilateral common iliac artery stenoses as described above Successful reconstruction of the distal ab
[2021-04-23 09:19] LABS: Coronavirus 19, PCR Not Detected (NotDetected); Influenza A, PCR Not Detected (NotDetected); Influenza B, PCR Not Detected (NotDetected)
--- NOTE | 2021-04-23 12:18 | HMH.PHACLD ---
Roxann Medeiros has received discharge medication counseling on the following medications: PERIPHERAL STENT-PATIENT IS CURRENTLY TAKING ASPIRIN, PLAVIX, AND LIPITOR.
[2021-04-23 13:36] LABS: CATHL Activated Clotting Time 346 SEC (74-125)
== END 2021-04-23 14:15 | disposition home or self-care (01) ==
LOC: CATHLAB 08:20
PROVIDERS: PCP Family Medicine; Visit Provider Internal Medicine
DX: I70.213 Atherosclerosis of native arteries of extremities with intermittent claudication, bilateral legs (principal); I77.1 Stricture of artery; E11.69 Type 2 diabetes mellitus with other specified complication; Z20.822 Contact with and (suspected) exposure to COVID-19; I65.23 Occlusion and stenosis of bilateral carotid arteries; I25.118 Atherosclerotic heart disease of native coronary artery with other forms of angina pectoris; I10 Essential (primary) hypertension; E78.5 Hyperlipidemia, unspecified; Z95.5 Presence of coronary angioplasty implant and graft; Z79.84 Long term (current) use of oral hypoglycemic drugs; Z79.899 Other long term (current) drug therapy
CPT/HCPCS: 37221; 37236; 85347; 99152; 99153; C1725; C1760; C1769; C1876; C1894; C9803; J1644; Q9966; U0003; U0005

== ENCOUNTER 2021-05-03 17:26 | Emergency (ER) | payer BC, MEDICARE, SELFPAY ==
--- NOTE | 2021-05-03 17:26 | ECG_ITS ---
APPROVED REPORT Exam: Resting ECG HR:97 bpm ECG Measurements Heart Rate 97 AXES MD 148 P 27 QRSd 85 QRS 38 QT 332 T 40 QTc 386 Conclusion SINUS RHYTHM NONSPECIFIC ST & T-WAVE ABNORMALITY BORDERLINE ECG UNCONFIRMED REPORT Electronically signed by : Andrez Luke MD 05/04/2021 07:36:08
[2021-05-03 17:30] VITALS: BP 178/53; PULSE 105; RESP 22; TEMP 36.9; O2SAT 96
--- NOTE | 2021-05-03 17:47 | HMH.EDGENADL ---
ED Disposition <Zabrina Olmstead - Last Filed: 05/03/21 20:01> Condition on Discharge: Good - Critical Care Critical Care Time: No <EllynJeanmarie Coates - Last Filed: 05/03/21 20:52> Clinical Impression: PAD (peripheral artery disease) Disposition: Home, Self-Care Instructions: DI for Peripheral Vascular (Arterial) Disease Additional Instructions: fluids and see dr calles on thursday am Referrals: Angeline Bowling RN [Registered Nurse] - Attestation: On 05/03/21, the high probability of a clinically significant, sudden or life threatening deterioration of the following system(s) required my full and direct attention, intervention and personal management. The time I documented below is in addition to time spent performing reported procedures but includes the following listed in this critical care notation. Medical Decision Making - Medical Records Medical records reviewed: Yes: I reviewed the patient's medical records. - Prasanna Inquiry Pt receiving controlled substance: No - Lab Data Lab results reviewed: Yes: I reviewed the patient's lab results. Result diagrams: 05/03/21 17:30 05/03/21 17:30 <Boni Olmsteadana - Last Filed: 05/03/21 20:01> - Lab Data Result diagrams: 05/03/21 17:30 05/03/21 17:30 - CT Data CT Scan: Abdomen, Pelvis, Chest Time Received: 20:[address] Reviewed: Yes: I have viewed the radiologist's interpretation Preliminary Findings: Abnormal (nonacute) <EllynJeanmarie Coates - Last Filed: 05/03/21 20:52> Vital Signs: 05/03/21 17:30 05/03/21 19:18 Temperature 98.4 F Temperature Source Oral Pulse Rate 91 H Pulse Rate [Right] 105 H Respiratory Rate 22 Blood Pressure 155/65 H Blood Pressure [Right Arm] 178/53 H Blood Pressure Mean [Right Arm] 94 02 Sat by Pulse Oximetry 96 89 L Oxygen Delivery Method Room Air - Lab Data Lab Results 05/03/21 17:30: WBC 8.9, RBC 4.37, Hgb 13.6, Hct 42.1, MCV 96.4, MCH 31.2, MCHC 32.4, RDW 13.8, Plt Count 202, MPV 8.6, Neut % (Auto) 55.6, Lymph % (Auto) 32.4, [place] % (Auto) 7.6, Eos % (Auto) 2.5, Baso % (Auto) 1.9, Neut # (Auto) 4.9, Lymph # (Auto) 2.9, [place] # (Auto) 0.7, Eos # (Auto) 0.2, Baso # (Auto) 0.2 05/03/21 17:30: D-Dimer 0.74 H 05/03/21 17:30: Sodium 132 L, Potassium 4.3, Chloride 96 L, Carbon Dioxide 25, Anion Gap 15.3 H, BUN 19 H, Creatinine 1.20 H, Estimated Creat Clear 49, Estimated GFR 45 L, Est GFR ( Amer) 54 L, Glucose 417 H*, Calcium 9.9, Total Bilirubin 0.9, AST 49 H, ALT 40, Alkaline Phosphatase 109, Troponin I < 0.01, Total Protein 7.6, Albumin 4.3, Globulin 3.3 H, Albumin/Globulin Ratio 1.3 05/03/21 18:30: VBG pH 7.43 H, VBG pCO2 34.6 L, VBG pO2 66.5 H, VBG HCO3 22.6 L, VBG Total CO2 23.6, VBG O2 Saturation 93.3 H, VBG Base Excess -1.7 Orders (Tests/Meds): ED MEDICATIONS Generic Name Dose Route Start Last Admin Trade Name Freq PRN Reason Stop Dose Admin Lactated Ringer's 500 mls @ 999 mls/hr 05/03/21 18:45 05/03/21 18:36 Lactated Ringer's 1000 Ml Bag IV 05/03/21 19:15 999 mls/hr .Q31M GIL Administration Lactated Ringer's 500 mls @ 999 mls/hr 05/03/21 19:45 Lactated Ringer's 1000 Ml Bag IV 05/03/21 20:15 .Q31M GIL Discontinued Medications Generic Name Dose Route Start Last Admin Trade Name Freq PRN Reason Stop Dose Admin Iopamidol 170 ml 05/03/21 19:11 05/03/21 19:12 Iopamidol-370 (76%);100ml Bottle IV 05/03/21 19:12 170 ml ONCE ONE Administration Ondansetron HCl 4 mg 05/03/21 17:59 05/03/21 18:14 Ondansetron 4mg/2ml Vial IV 05/03/21 18:00 4 mg ONCE ONE Administration Sodium Chloride 100 ml 05/03/21 19:11 05/03/21 19:12 0.9 % Sodium Chloride 50 Ml Vial IV 05/03/21 19:12 100 ml ONCE ONE Administration Sodium Chloride 10 ml 05/03/21 19:11 05/03/21 19:12 Sodium Chloride 0.9% 10ml Syr (Rad Only) IV 05/03/21 19:12 10 ml ONCE ONE Administration ORDERS Category Date Time Status Covid-19 Nasal PCR ([facility]) Routine Lab 05/03/21
--- NOTE | 2021-05-03 17:56 | CT_ITS ---
PROCEDURE INFORMATION: Exam: CTA Angiogram of the Abdominal Aorta and Bilateral Lower Extremities (Run-off) With IV Contrast Exam date and time: 05/03/2021 5:56 PM Age: 66 years old Clinical indication: Difficulty breathing or dyspnea; Prior surgery; Surgery date: <1 month; Surgery type: Recent aortic stent and left iliac artery TECHNIQUE: Imaging protocol: CT angiogram of the abdominal aorta, pelvis and bilateral lower extremities with IV iodinated contrast. 3D rendering (Not supervised by radiologist): MIP and/or 3D reconstructed images were created by the technologist. Total images: 970 Radiation optimization: All CT scans at this facility use at least one of these dose optimization techniques: automated exposure control; mA and/or kV adjustment per patient size (includes targeted exams where dose is matched to clinical indication); or iterative reconstruction. Contrast material: ISOVUE 370; Contrast volume: 100 ml; Contrast route: INTRAVENOUS (IV); COMPARISON: CT ANGIO ABDOMEN/FEMORAL 04/10/2021 1:48 PM FINDINGS: Aorta: The visualized lower thoracic aorta demonstrates mild calcific plaque but is otherwise unremarkable. The abdominal aorta demonstrates moderate calcific plaque with prior aorto bi-iliac stent placement. The stents are patent. No evidence of aortic aneurysm, dissection, or stenosis. Celiac trunk and mesenteric arteries: The celiac artery demonstrates mild ostial calcific plaque without stenosis. Its major branch vessels are unremarkable. The SMA demonstrates minor ostial/post ostial calcific plaque without stenosis. Its major branch vessels are normal. The ROCK is patent. Renal arteries: There is a single right main renal artery demonstrating mild ostial/post ostial calcific plaque without stenosis. There is a single left main renal artery demonstrating mild-moderate post ostial calcific plaque without stenosis. Right iliac arteries: The right iliac arteries demonstrate a patent stent in the common iliac distribution with mild-moderate calcific plaque in the external iliac artery without stenosis. Right femoral/popliteal arteries: Right common femoral artery demonstrates mild-moderate calcific plaque without stenosis. Right profunda femoral artery is normal. Right popliteal artery is normal. Right infrapopliteal arteries: Right anterior tibial artery is normal maintaining flow in the dorsalis pedis at the foot. Right tibioperoneal trunk demonstrates mild calcific plaque at its bifurcation without significant stenosis. Right posterior tibial artery is unremarkable with flow maintained into the tarsal tunnel and deep plantar space. Right peroneal artery is normal maintaining flow to the level of the ankle. Left iliac arteries: Left iliac arteries demonstrate a patent stent in the common iliac distribution. The left external iliac artery demonstrates mild calcific plaque without stenosis. Left femoral/popliteal arteries: The left common femoral artery demonstrates mild mixed plaque without stenosis. Left profunda femoral artery demonstrates mild post ostial mixed plaque without significant stenosis. Left popliteal artery is unremarkable. Left infrapopliteal arteries: Left anterior tibial artery is patent to the distal 3rd of the leg within appears to occlude at this level with distal flow reconstitution in the dorsalis pedis via the peroneal artery. Left tibioperoneal trunk is unremarkable. Left posterior tibial artery is unremarkable maintaining flow to the tarsal tunnel and deep plantar space. Left peroneal artery is patent, maintaining flow to dorsalis pedis at the foot. Lungs: Granulomatous calcification in the right middle
[2021-05-03 18:05] LABS: Basophils # 0.2 K/mm3 (0-0.2); Basophils % 1.9 % (0.1-2.0); Eosinophils # 0.2 K/mm3 (0.0-0.4); Eosinophils % 2.5 % (0.1-12.0); Hematocrit 42.1 % (37.0-47.0); Hemoglobin 13.6 g/dL (12.2-16.2); Lymphocytes # 2.9 K/mm3 (0.7-4.5); Lymphocytes % 32.4 % (10-50); Mean Corpuscular HGB Conc 32.4 g/dL (31.8-35.4); Mean Corpuscular Hemoglobin 31.2 pg (27.0-31.2); Mean Corpuscular Volume 96.4 fl (81-99); Mean Platelet Volume 8.6 fl (7.4-10.4); Monocytes # 0.7 K/mm3 (0.1-1.0); Monocytes % 7.6 % (1.7-9.3); Neutrophils # 4.9 K/mm3 (1.8-7.8); Neutrophils % 55.6 % (37.0-80.0); Platelet Count 202 K/mm3 (142-424); Red Blood Count 4.37 M/mm3 (4.20-5.40); Red Cell Distribution Width 13.8 % (11.5-17.5); White Blood Count 8.9 K/mm3 (4.8-10.8)
[2021-05-03 18:19] LABS: Alanine Aminotransferase 40 U/L (12-78); Albumin Level 4.3 g/dl (3.5-5.0); Albumin/Globulin Ratio 1.3 (1.1-1.8); Alkaline Phosphatase 109 U/L (38-126); Anion Gap 15.3 mEq/L (5-15); Aspartate Amino Transferase 49 U/L (14-36); Bilirubin,Total 0.9 mg/dl (0.2-1.3); Blood Urea Nitrogen 19 mg/dl (7-17); Calcium 9.9 mg/dl (8.4-10.2); Carbon Dioxide 25 mmol/L (22.0-30.0); Chloride 96 mmol/L (98-107); Creatinine Clearance Estimated 49 mL/min (50-200); Estimated Glomerular Filt Rate 45 ml/min (>60); GFR (African American) 54 ML/MIN (>60); Globulin 3.3 g/dL (1.3-3.2); Potassium 4.3 mmoL/L (3.5-5.1); Sodium 132 mmol/L (136-145); Total Protein,Serum 7.6 g/dl (6.3-8.2)
[2021-05-03 18:24] LABS: D-Dimer 0.74 ug/mL (0.0-0.5)
[2021-05-03 18:29] LABS: Glucose 417 mg/dl (74-100)
--- NOTE | 2021-05-03 18:29 | PC.NURSE ---
LAB CALLED WITH CRITICALS GLUCOSE 417
--- NOTE | 2021-05-03 18:31 | PC.NURSE ---
Dr. Lang NOTIFIED OF BLOOD SUGAR OF 417
--- NOTE | 2021-05-03 18:32 | CT_ITS ---
PROCEDURE INFORMATION: Exam: CTA Chest With Contrast Exam date and time: 05/03/2021 6:32 PM Age: 66 years old Clinical indication: Pain; Chest pressure; Prior surgery; Surgery date: <1 month; Surgery type: Abdominal aorta and left iliac artery; Additional info: Dyspnea, chest pain, elevated d-dimer TECHNIQUE: Imaging protocol: Computed tomographic angiography of the chest with contrast. 3D rendering (Not supervised by radiologist): MIP and/or 3D reconstructed images were created by the technologist. Total images: 620 Radiation optimization: All CT scans at this facility use at least one of these dose optimization techniques: automated exposure control; mA and/or kV adjustment per patient size (includes targeted exams where dose is matched to clinical indication); or iterative reconstruction. Contrast material: ISOVUE 370; Contrast volume: 70 ml; Contrast route: INTRAVENOUS (IV); COMPARISON: CT LUNG SCREENING 02/12/2021 3:00 PM FINDINGS: Pulmonary arteries: The pulmonary arteries enhance appropriately with no evidence of pulmonary embolism. Aorta: The aorta enhances appropriately without evidence of dissection or aneurysm. No mediastinal hematoma. The aorta demonstrates mild ectasia/tortuosity and moderate calcific atherosclerosis. Thyroid: The visualized thyroid gland demonstrates no gross abnormality. Lungs: Moderate centrilobular and paraseptal emphysematous changes in the upper lung jones. Question mild bilateral bronchial wall thickening suspicious for a mild element of bronchitis or bronchial edema, with no evidence of bronchiectasis or bronchial occlusions. No gross pulmonary infiltrates or edema pattern. No pulmonary mass lesions are identified. 5 mm granulomatous calcification in the posterior left lower lobe. Pleural spaces: No pleural effusion. No pneumothorax. Heart: Heart size normal. Likely multiple prior stent placements in the RCA distribution, diffuse calcific atherosclerosis less likely, correlate with procedural history. Mild coronary artery calcification in the left main and circumflex. No pericardial effusion. Mediastinal space: The esophagus is largely contracted but demonstrates no gross abnormality. Lymph nodes: No supraclavicular or axillary adenopathy. Enlarged mediastinal nodes involving the pretracheal retrocaval, precarinal, AP window, prevascular, and subcarinal distributions. Mildly enlarged bilateral hilar nodes also noted. These are nonspecific. Bones/joints: No acute osseous abnormalities are identified. Lower cervical fusion hardware partially visualized without gross complication. Soft tissues: The soft tissues of the chest wall demonstrate no acute abnormality. IMPRESSION: 1. No evidence of pulmonary embolism or aortic dissection. 2. Moderate emphysematous changes. 3. Question mild bronchial wall thickening suspicious for mild element of bronchitis or bronchial edema. No gross pulmonary infiltrates. 4. Additional nonemergent findings detailed above.
[2021-05-03 18:42] LABS: Troponin I < 0.01 ng/ml (0.00-0.034)
--- NOTE | 2021-05-03 18:47 | PC.NURSE ---
PT TO CT SACN
[2021-05-03 19:18] VITALS: BP 155/65; PULSE 91; O2SAT 89
[2021-05-03 20:13] LABS: VBG Base Excess -1.7 mmol/L (-2.4-2.3); VBG HCO3 22.6 mmol/L (23-30); VBG Oxygen Saturation 93.3 % (50-70); VBG PCO2 34.6 mmol/L (35-51); VBG PH 7.43 mmol/L (7.31-7.41); VBG PO2 66.5 mmol/L (28-40); VBG Total CO2 23.6 mmol/L (23-27)
[2021-05-03 20:52] VITALS: BP 147/61; PULSE 95; RESP 16; TEMP 36.7; O2SAT 90
== END 2021-05-03 21:02 | disposition home or self-care (01) ==
PROVIDERS: Emergency Provider Emergency Medicine; PCP Family Medicine
DX: R07.9 Chest pain, unspecified (principal); I70.213 Atherosclerosis of native arteries of extremities with intermittent claudication, bilateral legs
CPT/HCPCS: 71275; 75635; 80053; 82803; 84484; 85025; 85378; 93005; 96365; 99283; C9803; J2405; Q9967; U0003; U0005

== ENCOUNTER → 2021-06-03 12:06 | Outpatient (CLI) | payer BC, MEDICARE, SELFPAY | PROVIDERS: PCP Family Medicine; Visit Provider Internal Medicine Pulmonary Disease | DX: R06.09 Other forms of dyspnea (principal) | CPT/HCPCS: 94762 ==

== ENCOUNTER → 2021-09-30 14:06 | Outpatient (CLI) | payer BC, MEDICARE, SELFPAY | PROVIDERS: PCP Family Medicine; Visit Provider Nurse Practitioner Family | DX: G47.33 Obstructive sleep apnea (adult) (pediatric) (principal); G47.19 Other hypersomnia; G47.34 Idiopathic sleep related nonobstructive alveolar hypoventilation; R06.83 Snoring | CPT/HCPCS: G0399 ==

== ENCOUNTER 2022-06-13 20:14 | Inpatient (IN) | payer BC, MEDICARE, SELFPAY ==
[2022-06-13 20:16] VITALS: BP 140/45; PULSE 98; RESP 23; TEMP 36.8; O2SAT 94; BMI 26.4
[2022-06-13 20:21] VITALS: BP 140/45; PULSE 94; O2SAT 92
--- NOTE | 2022-06-13 20:36 | CT_ITS ---
PROCEDURE INFORMATION: Exam: CT Neck With Contrast Exam date and time: 06/13/2022 10:07 PM Age: 67 years old Clinical indication: Neck pain; Additional info: Neck swelling, right facial swelling TECHNIQUE: Imaging protocol: Computed tomography of the neck with contrast. Radiation optimization: All CT scans at this facility use at least one of these dose optimization techniques: automated exposure control; mA and/or kV adjustment per patient size (includes targeted exams where dose is matched to clinical indication); or iterative reconstruction. Contrast material: ISOVUE; Contrast volume: 75 ml; Contrast route: IV; REPORTING DATA: Count of CT and Cardiac NM exams in prior 12 months: This patient has received 0 known CTs and 0 known cardiac nuclear medicine studies in the 12 months prior to the current study. COMPARISON: US CA CAROTID DUPLEX BI 07/25/2020 2:04 PM FINDINGS: Dental: The patient is edentulous Pharynx: Unremarkable. No significant tonsillar enlargement. Larynx: Unremarkable. Epiglottis is normal. Prevertebral and retropharyngeal spaces: Unremarkable. Salivary glands: Normal. Glands are normal in size. Thyroid: Normal. No enlarged or calcified nodules. Lymph nodes: Unremarkable. No lymphadenopathy. Trachea: Visualized trachea is unremarkable. Lungs: Severe emphysematous changes at lung apices. Bones/joints: Unremarkable. No acute fracture. Soft tissues: Severe right facial subcutaneous fat stranding and significant soft tissue swelling compatible cellulitis of unclear etiology. Significant edema but no abscess collection identified. IMPRESSION: 1. Severe right facial subcutaneous fat stranding and significant soft tissue swelling compatible cellulitis of unclear etiology. Significant edema but no abscess collection identified. 2. Severe emphysematous changes at lung apices.
--- NOTE | 2022-06-13 20:56 | HMH.EDGENADL ---
Discharge Plan Disposition Patient Disposition: Admitted As Inpatient Condition: Fair Chief Complaint: Skin/Abscess/Foreign Body Prescriptions Prescriptions: No Action Xarelto 2.5 mg tablet 2.5 mg PO BID Qty: 60 5RF albuterol sulfate 90 mcg/actuation HFA aerosol inhaler 1 inh INHALATION Q6H PRN (Reason: shortness of breath or wheezing) 90 Days Qty: 8.5 3RF Stiolto Respimat 2.5-2.5 mcg/actuation mist 2 puff INHALATION DAILY 90 Days Qty: 4 3RF ropinirole 0.5 mg tablet 0.5 mg PO DAILY PRN spironolactone 50 mg tablet 50 mg PO DAILY Qty: 90 3RF levothyroxine 50 mcg tablet 50 mcg PO DAILY Label Comments: TAKE ONE (1) TABLET BY MOUTH DAILY omeprazole 40 mg capsule,delayed release(DR/EC) 40 mg PO DAILY Label Comments: TAKE 1 CAPSULE BY MOUTH ONCE DAILY metformin 500 mg tablet 500 mg PO BID Label Comments: TAKE 1 TABLET TWICE DAILY alprazolam 1 mg tablet 1 mg PO TID vitamin E (dl, acetate) 400 unit capsule 800 unit PO DAILY Label Comments: TAKE 2 CAPSULES BY MOUTH EVERY DAY aspirin 325 mg tablet 81 mg PO DAILY Jardiance 25 mg tablet 25 mg PO DAILY isosorbide mononitrate 60 mg tablet extended release 24 hr See Rx Instructions .ROUTE .COMPLEX Qty: 30 5RF Dose Instruction: TAKE ONE (1) TABLET EVERY DAY Rx Instructions: TAKE ONE (1) TABLET EVERY DAY torsemide 10 mg tablet See Rx Instructions .ROUTE .COMPLEX Qty: 60 5RF Dose Instruction: TAKE 2 TABLETS BY MOUTH ONCE DAILY Rx Instructions: TAKE 2 TABLETS BY MOUTH ONCE DAILY diltiazem HCl 240 mg capsule,extended release 24hr See Rx Instructions .ROUTE .COMPLEX Qty: 90 1RF Dose Instruction: TAKE ONE (1) CAPSULE EVERY DAY Rx Instructions: TAKE ONE (1) CAPSULE EVERY DAY losartan 50 mg tablet See Rx Instructions .ROUTE .COMPLEX Qty: 180 1RF Dose Instruction: TAKE 1 TABLET TWICE DAILY FOR HIGH BLOOD PRESSURE Rx Instructions: TAKE 1 TABLET TWICE DAILY FOR HIGH BLOOD PRESSURE metoprolol succinate 50 mg tablet extended release 24 hr See Rx Instructions .ROUTE .COMPLEX Qty: 90 1RF Dose Instruction: TAKE 1 TABLET EVERY DAY FOR HIGH BLOOD PRESSURE Rx Instructions: TAKE 1 TABLET EVERY DAY FOR HIGH BLOOD PRESSURE clopidogrel 75 mg tablet See Rx Instructions .ROUTE .COMPLEX Qty: 90 1RF Dose Instruction: TAKE 1 TABLET BY MOUTH DAILY FOR HYPERTENSION Rx Instructions: TAKE 1 TABLET BY MOUTH DAILY FOR HYPERTENSION Referrals Follow up/Referrals: Jeanmarie Gordon [Primary Care Provider] - See instructions Clinical Impressions Clinical Impression: Cellulitis of face, Sepsis, Acute kidney injury Instructions Patient Instructions: DI for Skin Abscess Discharge ED Provider: Jcarlos Canonn General Adult HPI General Chief complaint: Skin/Abscess/Foreign Body Stated complaint: Rside of face swollen and pain Time Seen by Provider: 06/13/22 23:01 Mode of Arrival: Family Vehicle Source of Information: Patient Limitations: No Limitations Description of Symptoms (Recalled from ER Triage Doc. by RN): Pt c/o significant R sided of face and neck swelling that has progressed t/o the day. She saw her PCP this am and received ad double dose steriod shot and Augmentin which pt has had 1 dose thus far today. She reports the pain is severe and is very tender. She also reports sore throat and a little trouble swallowing. She denies any known allergies. History of Present Illness HPI narrative: Patient presents to the emergency department with right-sided facial swelling. She states that this has rapidly progressed throughout the day. The patient states that she saw her doctor earlier today who gave her steroids as well as started her on Augmentin. She states that has progressed since this morning. She was instructed to come to the emergency department for further evaluation and treatment.
[2022-06-13 21:50] LABS: Basophils # 0.1 K/mm3 (0-0.2); Basophils % 0.2 % (0.1-2.0); Eosinophils # 0.1 K/mm3 (0.0-0.4); Eosinophils % 0.6 % (0.1-12.0); Hematocrit 31.9 % (37.0-47.0); Hemoglobin 10.6 g/dL (12.2-16.2); Lymphocytes # 0.8 K/mm3 (0.7-4.5); Lymphocytes % 3.5 % (10-50); Mean Corpuscular HGB Conc 33.3 g/dL (31.8-35.4); Mean Corpuscular Hemoglobin 27.5 pg (27.0-31.2); Mean Corpuscular Volume 82.5 fl (81-99); Mean Platelet Volume 9.2 fl (7.4-10.4); Monocytes # 0.6 K/mm3 (0.1-1.0); Monocytes % 2.6 % (1.7-9.3); Neutrophils # 20.5 K/mm3 (1.8-7.8); Platelet Count 147 K/mm3 (142-424); Red Blood Count 3.87 M/mm3 (4.20-5.40); Red Cell Distribution Width 16.2 % (11.5-17.5)
[2022-06-13 21:51] LABS: Chloride 101 mmol/L (98-107); Potassium 4.3 mmoL/L (3.5-5.1); Sodium 134 mmol/L (136-145)
[2022-06-13 21:52] LABS: MANUAL DIFFERENTIAL MANUAL DIFFERENTIAL (MANUAL DIFF)
[2022-06-13 21:53] LABS: Alanine Aminotransferase 40 U/L (12-78); Aspartate Amino Transferase 52 U/L (14-36); Blood Urea Nitrogen 30 mg/dl (7-17); Creatinine Clearance Estimated 31 mL/min (50-200); Estimated Glomerular Filt Rate 30 ml/min (>60); GFR (African American) 36 ML/MIN (>60)
[2022-06-13 21:54] LABS: Albumin Level 3.8 g/dl (3.5-5.0); Albumin/Globulin Ratio 1.2 (1.1-1.8); Alkaline Phosphatase 80 U/L (38-126); Anion Gap 19.3 mEq/L (5-15); Calcium 8.5 mg/dl (8.4-10.2); Carbon Dioxide 18 mmol/L (22.0-30.0); Globulin 3.2 g/dL (1.3-3.2); Glucose 267 mg/dl (74-100)
[2022-06-13 21:59] LABS: Lymphocytes % 14 % (10-50); Neutrophils % 86 % (42-76); Total Cells Counted 100
[2022-06-13 22:00] LABS: Platelet Estimate Normal; RBC Morphology Normal
[2022-06-13 22:04] LABS: Lactic Acid 5.1 mmol/L (0.7-2.1)
--- NOTE | 2022-06-13 22:05 | PC.NURSE ---
Dr. Cannon regarding WBC & Lactic Acid
[2022-06-13 22:24] VITALS: BP 117/48; PULSE 87; O2SAT 93
[2022-06-13 22:30] VITALS: BP 128/50; PULSE 87; O2SAT 92
[2022-06-13 22:31] LABS: Procalcitonin 22.3 ng/mL (0.0-2.0)
--- NOTE | 2022-06-13 22:37 | PC.NURSE ---
updating pt & family on POC and results thus far.
[2022-06-13 22:56] LABS: Coronavirus 19, PCR Not Detected (NotDetected); Influenza A, PCR Not Detected (NotDetected); Influenza B, PCR Not Detected (NotDetected)
[2022-06-13 23:00] VITALS: BP 138/56; PULSE 87; O2SAT 90
--- NOTE | 2022-06-13 23:22 | EXP.HP ---
History of Present Illness *Admission Date: 06/13/22 *Reason for visit:: Facial Swelling, Sore throat, Fevers, body aches and chills. *History of present illness: Ms. Medeiros is a 67-year-old female with a past medical history of DM, Anxiety Disorder, Hypothyroidism, CAD. She presents to [facility] with a 1-day history of right sided facial swelling that has worsened throughout the day associated with a greater than 1 week sore throat, fevers, body aches and chills. She reports that she was seen by her PCP earlier in the day and diagnosed with facial cellulitis, given steroids and antibiotics of Augmentin and informed that if it worsened to come to the ER. She reports worsening throughout the day. She reports that her symptoms initially stared with sore throat around 1 week ago and she reports fevers on and off since that time. 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 In the ER, the patient was noted to have a WBC of 22K, Lactic Acid was elevated at 5.1, CT of the neck showed severe facial subcutaneous fat stranding with significant soft tissue swelling on the right consistent with cellulitis. In the ER, the patient had blood cultures drawn. She was placed on empiric coverage to cover for Strep and Staph with Zosyn and Vancomycin. The patient will be admitted with initial impression: Facial Cellulitis, cultures will be drawn. The patient will be continued on antibiotics to cover for Staph and Strep. The plan of care was discussed with the patient and her daughter at bedside. Both verbalized understanding and agreement with the plan of care. [facility] Disclaimer: The information contained in this section may have been updated after the patient was seen, as this information can be updated by other users. Medical History (Updated 06/13/22 @ 23:41 by Riley Cline DNP) Abnormal ankle brachial index (GORDON) Abnormal CT of the abdomen Abnormal EKG Chest pain COPD (chronic obstructive pulmonary disease) DM (diabetes mellitus) Dyspnea Ex-smoker Family history of heart disease HLD (hyperlipidemia) HTN (hypertension) PAD (peripheral artery disease) Right carotid bruit Surgical History (Updated 06/13/22 @ 23:32 by Riley Cline DNP) History of cholecystectomy Social History (Reviewed 06/13/22 @ 23:32 by RAMAN Khan Smoking Status: Former smoker second hand exposure: No alcohol intake: never substance use type: denies use current occupational status: employed Travel in the last 8 weeks: None household members: spouse housing: house current occupational exposures/hazards: No Review of Systems Review of Systems Review of systems:: pertinent systems reviewed and negative unless documented below Constitutional Constitutional: Reports body ache(s), Reports chills and Reports fever(s) Eyes Eyes: Reports system reviewed and no additional complaints, except as documented ENT Ears, Nose, Mouth, and Throat: Reports odynophagia and Reports sore throat *Cardiovascular Cardiovascular: Reports system reviewed and no additional complaints, except as documented *Respiratory Respiratory: Reports system reviewed and no additional complaints, except as documented *Gastrointestinal Gastrointestinal: Reports system reviewed and no additional complaints, except as documented and Reports odynophagia *Genitourinary Genitourinary: Reports system reviewed and no additional complaints, except as documented *Musculoskeletal Musculoskeletal: Reports system reviewed and no additional complaints, except as documented Integumentary/Breasts Skin/Breast: Reports change in pigmentation, Reports erythema and Reports skin swelling Comments: Right side of face *Neurologic Neurologic: Reports system reviewed and no additional complaints, except as documented Psychiatric Psychiatric: Reports system reviewed and no additional complaints, except as documente
--- NOTE | 2022-06-13 23:53 | PC.NURSE ---
RECEIVED PHONE REPORT FROM VALERIA SKINNER RN/ED AT 3230. ADMISSION DX: SEPSIS/CELLULITIS RIGHT FACE/NEDK.
--- NOTE | 2022-06-13 23:54 | PC.NURSE ---
Called report to Joann JULIO on 2nd floor
[2022-06-13 23:57] VITALS: BP 129/52; PULSE 82; RESP 20; TEMP 36.9; O2SAT 93
[2022-06-14] VITALS (9 sets, daily range): BP systolic 108–129; BP diastolic 45–75; PULSE 91–98; RESP 17–18; TEMP 36.9–37.9; O2SAT 90–96; BMI 28.5; BMI 28.7
--- NOTE | 2022-06-14 00:52 | PC.NURSE ---
Patient arrived to the med surg floor at 0022 via w/c. admitted to room 211. oriented to room and equipement. verbalizes understanding. adm dx cellulitis fce/neck.
[2022-06-14 00:59] LABS: Reflex Lactic Add Lactic Reflex
--- NOTE | 2022-06-14 01:39 | PC.NURSE ---
Patient's first dose of vancomycin completed here on med surg. er nurse joshua nash said pharmacy was consulted. i spoke with manuel/pharmacist night watch and she said that she would have the dayshift pharmacy follow up on the vanc dosing for tomorrow.
[2022-06-14 02:12] LABS: Lactic Acid Follow Up (RFLX 1) 2.9 mmol/L (0.7-2.1)
[2022-06-14 02:33] LABS: Strep Scrn Group A (Rapid) Positive (Negative)
[2022-06-14 03:41] LABS: Reflex Lactic (2 hrs) Add Lactic Reflex
[2022-06-14 04:05] LABS: Lactic Acid Follow up (RFLX 2) 2.4 mmol/L (0.7-2.1)
--- NOTE | 2022-06-14 04:13 | PC.NURSE ---
PATIENT RESTING WELL. FAMILY MEMBER AT BEDSIDE. 02 AT 2LNC.
[2022-06-14 05:33] LABS: POC Glucose,Bedside 203 (70-110)
--- NOTE | 2022-06-14 08:24 | EXP.PHA.CONS ---
Pharmacy Consult Date: 06/14/22 Time: 08:24 Referring provider: DR. ARROYO Reason for Consult:: VANCOMYCIN DOSING Allergies Allergy/AdvReac Type Severity Reaction Status Date / Time No Known Allergies Allergy Verified 09/30/21 14:24 Home Medications Medication Instructions Recorded Confirmed Type alprazolam 1 mg tablet 1 mg PO TID Anxiety 07/11/20 06/13/22 History levothyroxine 50 mcg tablet 50 mcg PO DAILY thyroid 07/11/20 06/13/22 History metformin 500 mg tablet 500 mg PO BID Diabetes 07/11/20 06/13/22 History omeprazole 40 mg capsule,delayed 40 mg PO DAILY gerd 07/11/20 06/13/22 History release vitamin E (dl, acetate) 180 mg 800 unit PO DAILY Supplement 07/11/20 06/13/22 History (400 unit) capsule albuterol sulfate 90 mcg/actuation 1 inh inhalation Q6H PRN shortness 06/26/21 06/13/22 Rx aerosol inhaler of breath or wheezing 90 days #8.5 grams spironolactone 50 mg tablet 50 mg PO DAILY fluid #90 tabs 03/19/22 06/13/22 Rx amoxicillin 875 mg-potassium 1 tab PO BID face infection 06/13/22 06/13/22 History clavulanate 125 mg tablet aspirin 81 mg tablet 81 mg PO DAILY cardiac 06/13/22 06/13/22 History clopidogrel 75 mg tablet See Rx Instructions .Route 06/13/22 06/13/22 History .COMPLEX antiplatlet glipizide 10 mg tablet, extended 10 mg PO DAILY Diabetes 06/13/22 06/13/22 History release 24 hr isosorbide mononitrate 60 mg See Rx Instructions .Route 06/13/22 06/13/22 History tablet,extended release 24 hr .COMPLEX cardiac linagliptin 5 mg tablet (Tradjenta) 5 mg PO DAILY Diabetes 06/13/22 06/13/22 History losartan 50 mg tablet See Rx Instructions .Route 06/13/22 06/13/22 History .COMPLEX High blood pressure metoprolol succinate 50 mg See Rx Instructions .Route 06/13/22 06/13/22 History tablet,extended release 24 hr .COMPLEX heart rate tiotropium 2.5 mcg-olodaterol 2.5 2 puff inhalation DAILY COPD 06/13/22 06/13/22 History mcg/actuation mist for inhalation (Stiolto Respimat) torsemide 10 mg tablet See Rx Instructions .Route 06/13/22 06/13/22 History .COMPLEX Fluid New Prescriptions to Start Prescriptions: Height: 1.55 m Weight: 69.059 kg Laboratory Results:: Laboratory Results - last 24 hr 06/13/22 21:30: WBC 22.0 H*, RBC 3.87 L, Hgb 10.6 L, Hct 31.9 L, MCV 82.5, MCH 27.5, MCHC 33.3, RDW 16.2, Plt Count 147, MPV 9.2, Neut % (Auto) 93.0 H, Lymph % (Auto) 3.5 L, [place] % (Auto) 2.6, Eos % (Auto) 0.6, Baso % (Auto) 0.2, Neut # (Auto) 20.5 H, Lymph # (Auto) 0.8, [place] # (Auto) 0.6, Eos # (Auto) 0.1, Baso # (Auto) 0.1, Total Counted 100, Neutrophils % (Manual) 86 H, Lymphocytes % (Manual) 14, Platelet Estimate Normal, RBC Morphology Normal 06/13/22 21:30: Sodium 134 L, Potassium 4.3, Chloride 101, Carbon Dioxide 18 L, Anion Gap 19.3 H, BUN 30 H, Creatinine 1.70 H, Estimated Creat Clear 31, Estimated GFR 30 L, Est GFR ( Amer) 36 L, Glucose 267 H, Calcium 8.5, Total Bilirubin 1.0, AST 52 H, ALT 40, Alkaline Phosphatase 80, Total Protein 7.0, Albumin 3.8, Globulin 3.2, Albumin/Globulin Ratio 1.2, Procalcitonin 22.3 H 06/13/22 21:30: Lactate 5.1 H 06/13/22 22:50: SARS-CoV-2 (PCR) Not detected, Influenza A Untype (PCR) Not detected, Influenza Type B (PCR) Not detected 06/14/22 01:50: Lactate 2.9 H 06/14/22 02:20: Group A Strep Rapid Positive A 06/14/22 03:50: Lactate 2.4 H 06/14/22 05:26: POC Glucose 203 H Medical History: Medical History (Updated 06/13/22 @ 23:41 by Riley Cline DNP) Abnormal ankle brachial index (GORDON) Abnormal CT of the abdomen Abnormal EKG Chest pain COPD (chronic obstructive pulmonary disease) DM (diabetes mellitus) Dyspnea Ex-smoker Family history of heart disease HLD (hyperlipidemia) HTN (hypertension) PAD (peripheral artery disease) Right carotid bruit Assessment and Plan Assessment and plan all Dx Assessment and Plan for all problems:: Pharmacokinetic dosing service Objective: Patient: Floor: Age: 67 yo S
[2022-06-14 10:06] LABS: POC Glucose,Bedside 100 (70-110)
--- NOTE | 2022-06-14 13:34 | EXP.ACUTE.PN ---
Subjective *Date: 06/14/22 *Time: 13:34 Interval history: Swelling improved. Having severe facial pain. No pain with eye movement. Medical Exam Vital signs and Labs for Last 24 Hours: Vital Signs Temp Pulse Pulse Resp BP BP Pulse Ox 06/14/22 11:10 99.5 F 98 H 17 117/51 L 94 L 06/14/22 10:16 90 L 06/14/22 07:16 98.5 F 96 H 18 126/52 L 96 06/14/22 04:00 98.9 F 91 H 18 110/45 L 94 L 06/14/22 00:30 91 L 06/14/22 00:00 98.6 F 93 H 18 129/52 L 91 L 06/13/22 23:57 98.4 F 82 20 129/52 L 06/13/22 23:00 87 138/56 L 90 L 06/13/22 22:30 87 128/50 L 92 L 06/13/22 22:24 87 117/48 L 93 L 06/13/22 20:21 94 H 140/45 L 92 L 06/13/22 20:16 98.3 F 98 H 23 140/45 L 94 L Intake and Output 06/13/22 06/14/22 06/14/22 23:59 07:59 15:59 Intake Total 1500 / 1750 957 / 1197 240 / 1197 Output Total 150 / 150 0 / 150 Balance 1500 / 1750 807 / 1047 240 / 1047 Intake: Intake, Oral Amount 300 / 540 240 / 540 Intake, Total IV Amount 1500 / 1750 657 / 657 0.9 % Sodium Chloride 1000ML 1, 407 / 407 000 ml @ 75 mls/hr IV .[id number] [facility] Rx#:[id number] Vancomycin HCl 1,500 mg In 0.9 250 / 250 % Sodium Chloride 250 ml @ 125 mls/hr IV ONCE ONE Rx#:[id number] Output: Output, Urine Amount 150 / 150 0 / 150 Other: Number of Unmeasured Voids 1 1 Weight 63.503 kg 69.059 kg 69.059 kg Patient Weight 06/14/22 23:59 Weight 69.059 kg Laboratory Results - last 24 hr 06/13/22 21:30: WBC 22.0 H*, RBC 3.87 L, Hgb 10.6 L, Hct 31.9 L, MCV 82.5, MCH 27.5, MCHC 33.3, RDW 16.2, Plt Count 147, MPV 9.2, Neut % (Auto) 93.0 H, Lymph % (Auto) 3.5 L, [place] % (Auto) 2.6, Eos % (Auto) 0.6, Baso % (Auto) 0.2, Neut # (Auto) 20.5 H, Lymph # (Auto) 0.8, [place] # (Auto) 0.6, Eos # (Auto) 0.1, Baso # (Auto) 0.1, Total Counted 100, Neutrophils % (Manual) 86 H, Lymphocytes % (Manual) 14, Platelet Estimate Normal, RBC Morphology Normal 06/13/22 21:30: Sodium 134 L, Potassium 4.3, Chloride 101, Carbon Dioxide 18 L, Anion Gap 19.3 H, BUN 30 H, Creatinine 1.70 H, Estimated Creat Clear 31, Estimated GFR 30 L, Est GFR ( Amer) 36 L, Glucose 267 H, Calcium 8.5, Total Bilirubin 1.0, AST 52 H, ALT 40, Alkaline Phosphatase 80, Total Protein 7.0, Albumin 3.8, Globulin 3.2, Albumin/Globulin Ratio 1.2, Procalcitonin 22.3 H 06/13/22 21:30: Lactate 5.1 H 06/13/22 22:50: SARS-CoV-2 (PCR) Not detected, Influenza A Untype (PCR) Not detected, Influenza Type B (PCR) Not detected 06/14/22 01:50: Lactate 2.9 H 06/14/22 02:20: Group A Strep Rapid Positive A 06/14/22 03:50: Lactate 2.4 H 06/14/22 05:26: POC Glucose 203 H 06/14/22 09:29: POC Glucose 100 I & O for Labs for Last 24 Hours: Intake & Output 06/11/22 06/12/22 06/13/22 06/14/22 23:59 23:59 23:59 23:59 Intake Total 1500 / 1750 1197 / 1197 Output Total 150 / 150 Balance 1500 / 1750 1047 / 1047 Weight 63.503 kg 69.059 kg Constitutional: Present no acute distress Comment:: Severe right-sided facial swelling, erythema, extending to eyes. No pain with eye motion. Respiratory: Present normal respiratory effort Cardiac: Present Reg Rate and Rhythm GI: Present normal bowel sounds; Absent tenderness Extremities: Present normal inspection and full ROM Skin: Present intact; Absent erythema Neuro: Present Grossly Intact and moves all extremities Assessment and Plan *Assessment and plan (1) Facial cellulitis: Status: Acute Category: Medical Code(s): L03.211 - Cellulitis of face (2) Acute on chronic kidney failure: Status: Acute Category: Medical Code(s): N17.9 - Acute kidney failure, unspecified; N18.9 - Chronic kidney disease, unspecified (3) Diabetes: Status: Acute Category: Medical Code(s): E11.9 - Type 2 diabetes mellitus without complications (4) Hypothyroidism: Status: Acute Category: Medical Code(s
--- NOTE | 2022-06-14 15:36 | PC.NURSE ---
Pt sleeping at this time. Continues to have (R) facial edema and erythema that continues to neck. Periorbital edema continues also. Pt has c/o discomfort x1 this shift. Medicated per may. Has ambulated to BR. Call light at bedside.
[2022-06-14 17:09] LABS: POC Glucose,Bedside 136 (70-110)
[2022-06-14 20:57] LABS: POC Glucose,Bedside 241 (70-110)
--- NOTE | 2022-06-14 22:37 | PC.NURSE ---
noted per stevan notes vte prophalaxis heparin was to be given, olga huynh was called and notified
[2022-06-15] VITALS (32 sets, daily range): BP systolic 78–119; BP diastolic 39–75; PULSE 70–143; RESP 18–22; TEMP 36.6–37.1; O2SAT 91–96; BMI 29.3
--- NOTE | 2022-06-15 00:56 | PC.NURSE ---
called olga huynh regarding pt with soft b/p's; see vital sign flow sheet, b/p was 90/38 right arm and recheck was 96/47 left arm, no new orders, will recheck b/p again and report if still low. no acute distress, pt alert and oriented and stated she felt fine.
--- NOTE | 2022-06-15 02:15 | PC.NURSE ---
0215 olga huynh called and notified of pt b/p low as documented, order entered to give ns 500cc bolus.
--- NOTE | 2022-06-15 03:54 | PC.NURSE ---
was noted pt heart rate irregular fluctuating from 85-120, olga huynh notified, ekg ordered.
--- NOTE | 2022-06-15 04:00 | ECG_ITS ---
APPROVED REPORT Exam: Resting ECG HR:142 bpm ECG Measurements Heart Rate 142 AXES QRSd 90 QRS 27 QT 289 T -32 QTc 371 Conclusion ATRIAL FIBRILLATION WITH RAPID VENTRICULAR RESPONSE NONSPECIFIC ST & T-WAVE ABNORMALITY ABNORMAL RHYTHM ECG INTERPRETATION BASED ON A DEFAULT AGE OF 40 YEARS UNCONFIRMED REPORT Electronically signed by : Andrez Luke MD 06/17/2022 03:10:21
--- NOTE | 2022-06-15 05:15 | PC.NURSE ---
0415 ekg revealed atrial fib with rvr, olga huynh at bedside to assess ekg, metoprolol 5mg was given iv per provider at 0420; hr still in 130-140's, metoprolol 5mg given ivp per provider orders at 0430 with no change, orders to move to stepdown and start drip for conversion of atrial fibrillation, sylvester catheter inserted at this time per provider orders, #16fr sylvester catheter inserted to bsd per provider orders, 20g iv started to left wrist x1 stick. 0500 pt moved to step down in stable condition room 218
[2022-06-15 05:40] LABS: Basophils # 0.1 K/mm3 (0-0.2); Basophils % 0.3 % (0.1-2.0); Chloride 111 mmol/L (98-107); Eosinophils # 0.8 K/mm3 (0.0-0.4); Eosinophils % 5.2 % (0.1-12.0); Hemoglobin 10.1 g/dL (12.2-16.2); Lymphocytes # 1.3 K/mm3 (0.7-4.5); Lymphocytes % 8.7 % (10-50); Mean Corpuscular HGB Conc 32.5 g/dL (31.8-35.4); Mean Corpuscular Hemoglobin 27.8 pg (27.0-31.2); Mean Corpuscular Volume 85.3 fl (81-99); Mean Platelet Volume 8.8 fl (7.4-10.4); Monocytes # 0.4 K/mm3 (0.1-1.0); Monocytes % 2.5 % (1.7-9.3); Neutrophils # 12.4 K/mm3 (1.8-7.8); Neutrophils % 83.2 % (37.0-80.0); Platelet Count 143 K/mm3 (142-424); Red Blood Count 3.64 M/mm3 (4.20-5.40); Red Cell Distribution Width 16.2 % (11.5-17.5); White Blood Count 14.9 K/mm3 (4.8-10.8)
[2022-06-15 05:41] LABS: Potassium 4.3 mmoL/L (3.5-5.1); Sodium 136 mmol/L (136-145)
[2022-06-15 05:43] LABS: Blood Urea Nitrogen 35 mg/dl (7-17); Creatinine Clearance Estimated 39 mL/min (50-200); Estimated Glomerular Filt Rate 34 ml/min (>60); GFR (African American) 42 ML/MIN (>60)
--- NOTE | 2022-06-15 05:43 | PC.NURSE ---
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
[2022-06-15 05:44] LABS: Anion Gap 9.3 mEq/L (5-15); Calcium 7.2 mg/dl (8.4-10.2); Carbon Dioxide 20 mmol/L (22.0-30.0); Glucose 126 mg/dl (74-100); Lactic Acid 1.2 mmol/L (0.7-2.1)
[2022-06-15 05:49] LABS: C-Reactive Protein 200.8 mg/L (0-4)
--- NOTE | 2022-06-15 06:00 | PC.NURSE ---
0554 amiodarone started at 1mg/min = 33.3ml/hr at this time, family remains at bedside.
--- NOTE | 2022-06-15 06:14 | PC.NURSE ---
pt is alert and oriented x4, pt remains in atrial fibillation with controlled rate at this time, f/c to bsd, right side of face and neck remains red and swollen, bilateral hand edema 1+ noted, b/p remain stable at this time, family at bedside, no acute distress.
--- NOTE | 2022-06-15 06:30 | PC.NURSE ---
was noted on engine monitor pt in sinus rythm, hr 86, olga huynh made aware and stated to continue amiodarone drip at this time repeated and verified.
[2022-06-15 06:36] LABS: Erythrocyte Sedimentation Rate 124 mm/hr (0-30)
--- NOTE | 2022-06-15 08:31 | EXP.ACUTE.PN ---
Subjective *Date: 06/15/22 *Time: 08:31 Interval history: Overnight A-fib with RVR, started on amnio drip with conversion to normal sinus rhythm. Having some pain in her face. Also in her neck when she coughs. Medical Exam Vital signs and Labs for Last 24 Hours: Vital Signs Temp Pulse Pulse Resp BP BP Pulse Ox 06/15/22 08:00 87 22 99/49 L 91 L 06/15/22 08:00 98.6 F 06/15/22 06:32 90 06/15/22 04:19 135 H 06/15/22 06:00 96 H 109/52 L 93 L 06/15/22 05:55 75 98/48 L 96 06/15/22 05:40 143 H 115/61 94 L 06/15/22 05:25 141 H 20 96/49 L 95 06/15/22 05:10 129 H 20 103/67 L 94 L 06/15/22 04:45 18 89/57 L 93 L 06/15/22 04:40 20 86/54 L 94 L 06/15/22 04:30 20 95/75 L 95 06/15/22 04:20 135 H 20 112/47 L 94 L 06/15/22 04:00 97.9 F 78 18 104/62 L 96 06/15/22 02:30 80 95/49 L 06/15/22 03:30 76 96/57 L 06/15/22 03:00 81 102/44 L 06/15/22 02:30 80 95/49 L 06/15/22 02:21 90/40 L 06/15/22 02:20 81 78/39 L 88/40 L 06/15/22 00:00 98.7 F 87 18 96/47 L 94 L 06/15/22 00:00 94 L 06/15/22 00:30 87 96/47 L 06/15/22 00:30 89 98/40 L 06/14/22 20:00 91 H 91 L 06/14/22 19:55 98.7 F 91 H 18 126/51 L 91 L 06/14/22 19:09 06/14/22 14:48 100.2 F H 96 H 18 108/75 L 90 L 06/14/22 11:10 99.5 F 98 H 17 117/51 L 94 L 06/14/22 10:16 90 L FiO2 06/15/22 08:00 06/15/22 08:00 06/15/22 06:32 06/15/22 04:19 06/15/22 06:00 06/15/22 05:55 06/15/22 05:40 06/15/22 05:25 06/15/22 05:10 06/15/22 04:45 06/15/22 04:40 06/15/22 04:30 06/15/22 04:20 06/15/22 04:00 06/15/22 02:30 06/15/22 03:30 06/15/22 03:00 06/15/22 02:30 06/15/22 02:21 06/15/22 02:20 06/15/22 00:00 06/15/22 00:00 06/15/22 00:30 06/15/22 00:30 06/14/22 20:00 06/14/22 19:55 06/14/22 19:09 32 06/14/22 14:48 06/14/22 11:10 06/14/22 10:16 Intake and Output 06/14/22 06/15/22 06/15/22 23:59 07:59 15:59 Intake Total 120 / 3704 2327 / 2447 120 / 2447 Output Total 0 / 451 450 / 450 0 / 450 Balance / 3253 1876 Intake: Intake, Oral Amount 120 / 720 120 / 120 Intake, Total IV Amount 2327 / 2327 0.9 % Sodium Chloride 1000ML 1, 100 / 100 000 ml @ 100 mls/hr IV .Q10H [facility] Rx#:[id number] 0.9 % Sodium Chloride 1000ML 1, 999 / 999 000 ml @ 999 mls/hr IV .Q1H1M [facility] Rx#:[id number] 0.9 % Sodium Chloride 500 ml @ 500 / 500 500 mls/hr IV .Q1H [facility] Rx#: [id number] 0.9 % Sodium Chloride 500 ml @ 500 / 500 500 mls/hr IV .Q1H [facility] Rx#: [id number] Amiodarone HCl 150 mg In 100 / 100 Dextrose 5 % in Water 100 ml @ 618 mls/hr IV ONCE ONE Rx#: [id number] Amiodarone HCl 900 mg In / Dextrose 5 % in Water 500 ml @ 33.3 mls/hr IV .[id number] [facility] Rx# :[id number] Cefepime HCl 2 gm In 0.9 % 100 / 100 Sodium Chloride 100 ml @ 200 mls/hr IV Q12 [facility] Rx#:[id number] Output: Output, Urine Amount 0 / 151 150 / 150 0 / 150 Output, Urine Amount (Catheter) 300 / 300 Frazier 300 / 300 Other: Number of Unmeasured Voids 0 0 0 Weight 70.449 kg Patient Weight 06/15/22 23:59 Weight 70.449 kg Laboratory Results - last 24 hr 06/14/22 09:29: POC Glucose 100 06/14/22 16:45: POC Glucose 136 H 06/14/22 20:37: POC Glucose 241 H 06/15/22 05:23: Lactate 1.2 06/15/22 05:23: WBC 14.9 H D, RBC 3.64 L, Hgb 10.1 L, Hct 31.0 L, MCV 85.3, MCH 27.8, MCHC 32.5, RDW 16.2, Plt Count 143, MPV 8.8, Neut % (Auto) 83.2 H, Lymph % (Auto) 8.7 L, [place] % (Auto) 2.5, Eos % (Auto) 5.2, Baso % (Auto) 0.3, Neut # (Auto) 12.4 H, Lymph # (Auto) 1.3, [place] # (Auto) 0.4, Eos # (Auto) 0.8 H, Baso # (Auto) 0.1, ESR 124 H 06/15/22 05:23: Sodium 136, Potassium 4.3, Chlori
[2022-06-15 11:37] LABS: POC Glucose,Bedside 230 (70-110)
[2022-06-15 18:23] LABS: POC Glucose,Bedside 170 (70-110)
[2022-06-16] VITALS (11 sets, daily range): BP systolic 115–134; BP diastolic 47–60; PULSE 68–80; RESP 18–20; TEMP 36.4–37; O2SAT 87–95; BMI 30.7
--- NOTE | 2022-06-16 00:34 | PC.NURSE ---
COURTESY ROUND PATIENT AWAKE WITH FAMILY AT BEDSIDE. TRASH AND LINENS EMPTIED . 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 CALL LIGHT WITHIN REACH
[2022-06-16 05:50] LABS: POC Glucose,Bedside 186 (70-110)
--- NOTE | 2022-06-16 05:58 | PC.NURSE ---
amiodarone drip stopped, po amiodarone administered, pt aydira well.
[2022-06-16 06:29] LABS: Basophils % 0.2 % (0.1-2.0); Eosinophils # 0.4 K/mm3 (0.0-0.4); Eosinophils % 4.7 % (0.1-12.0); Hemoglobin 9.3 g/dL (12.2-16.2); Lymphocytes # 1.1 K/mm3 (0.7-4.5); Lymphocytes % 12.5 % (10-50); Mean Corpuscular Hemoglobin 27.1 pg (27.0-31.2); Mean Corpuscular Volume 84.6 fl (81-99); Mean Platelet Volume 8.8 fl (7.4-10.4); Monocytes # 0.3 K/mm3 (0.1-1.0); Monocytes % 3.7 % (1.7-9.3); Neutrophils # 7.1 K/mm3 (1.8-7.8); Neutrophils % 78.9 % (37.0-80.0); Platelet Count 148 K/mm3 (142-424); Red Blood Count 3.43 M/mm3 (4.20-5.40); Red Cell Distribution Width 16.4 % (11.5-17.5)
[2022-06-16 06:40] LABS: Alanine Aminotransferase 22 U/L (12-78); Alkaline Phosphatase 88 U/L (38-126); Aspartate Amino Transferase 33 U/L (14-36); Bilirubin,Total 0.7 mg/dl (0.2-1.3); Blood Urea Nitrogen 28 mg/dl (7-17); Carbon Dioxide 18 mmol/L (22.0-30.0); Chloride 109 mmol/L (98-107); Creatinine Clearance Estimated 52 mL/min (50-200); Estimated Glomerular Filt Rate 45 ml/min (>60); GFR (African American) 54 ML/MIN (>60); Glucose 163 mg/dl (74-100); Phosphorous 2.4 mg/dl (2.5-4.5); Sodium 135 mmol/L (136-145)
[2022-06-16 07:38] LABS: Iron 48 ug/dL (37-170)
[2022-06-16 07:48] LABS: Total Iron Binding Capacity 367 ug/dL (265-497)
[2022-06-16 08:15] LABS: Ferritin 42.9 ng/ml (11.1-264)
--- NOTE | 2022-06-16 08:34 | CA_ITS ---
APPROVED REPORT EXAM: Comprehensive 2D, Doppler, and color-flow Echocardiogram Maritime Engineer: Cris Rausch RVT Ht: 5 ft 1 in Wt: 163lbs BSA: 1.73 BP: 99/49 mmHg Indications: A-FIB,COPD,CP,DM,CAD,HLD,HTN 2D Dimensions LVOT 1.95 cm (M/F) 1.5-2.5 LA Volume 53.60 mL LA Volume Index 30.98 mL/m2 (M/F) 16-34 M-Mode Dimensions RVDd 2.50 cm (0.9-2.6) LA Diam 4.22 cm (1.9-4.0) LVDd 4.31 cm (3.5-5.7) Ao Diam 2.80 cm (2.0-3.7) LVDs 2.98 cm (3.5-5.7) IVSd 0.85 cm (0.6-1.1) PWd 1.29 cm (0.6-1.1) EF (Teich) 58.80% FS 30.90% EDV (Teich) 83.50 mL TAPSE 1.65 (<1.7) ESV (Teich) 34.40 mL LV Diastology E Decel Time 187.00 (160-240 msec) E/A Ratio 1.4 MED E' 10.70 (< 7 cm/sec) E'/MED E' Ratio 14.25 (>14) LAT E' 11.50 (<10 cm/sec) E/LAT E' Ratio 13.26 (>14) Aortic Valve AO Peak GR. 8.20 mmHg Mitral Valve MV E Max Dieudonne. 153.00 (40-130 cm/s) MV A Velocity 110.00 (40-130 cm/s) E/A Ratio 1.39 MV Decel. Time 187.00 (160-240 ms) MV PHT 55.00 ms Pulmonary Valve PV Peak Velocity 95.00 (50-150 cm/s) Tricuspid Valve TR P. Velocity 321.00 cm/s RAP Estimate 10.00 mmHg RVSP 51.20 mmHg Left Ventricle Left atrium is mildly enlarged, left ventricle is normal size mild concentric left ventricular hypertrophy, estimated ejection fraction 55% with no regional wall motion abnormality, grade 2 diastolic dysfunction seen without tissue Doppler evidence of late left atrial pressure. Right Ventricle Right atrium and right ventricular mildly enlarged with normal contractility. Aortic Valve Aortic valve is minimally thickened and calcified without Doppler evidence of aortic stenosis aortic insufficiency. Mitral Valve Mitral valve leaflets are minimally thickened, there is mild mitral regurgitation. Tricuspid Valve Tricuspid valve grossly normal, there is mild tricuspid regurgitation, calculated right ventricular systolic pressure is 51 mmHg. Pulmonic Valve Pulmonic valve is poorly visualized. Great Vessels Aortic root is normal size. Inferior vena cava is normal size with less than 50% inspiratory collapse. Pericardium No significant pericardial effusion noted. Conclusion 1. Biatrial enlargement, normal left ventricular size, mild concentric left ventricular hypertrophy, estimated ejection fraction 55% with no regional wall motion abnormality, grade 2 diastolic dysfunction seen without tissue Doppler evidence of late left atrial pressure. 2. Mildly enlarged right ventricle with normal contractility. 3. Mild mitral and tricuspid regurgitation, calculated right ventricular systolic pressure is 51 mmHg. 4. No significant pericardial effusion noted. 5. Inferior vena cava is normal size with less than 50% inspiratory collapse. Electronically signed by : Nathan Devlin MD 06/17/2022 06:31:51
--- NOTE | 2022-06-16 10:28 | EXP.PHA.CONS ---
Pharmacy Consult Date: 06/16/22 Time: 10:28 Referring provider: DR. CHRISTINE Reason for Consult:: VANCOMCYIN DOSE CHANGE Allergies Allergy/AdvReac Type Severity Reaction Status Date / Time No Known Allergies Allergy Verified 09/30/21 14:24 Home Medications Medication Instructions Recorded Confirmed Type alprazolam 1 mg tablet 1 mg PO TID Anxiety 07/11/20 06/13/22 History levothyroxine 50 mcg tablet 50 mcg PO DAILY thyroid 07/11/20 06/13/22 History metformin 500 mg tablet 500 mg PO BID Diabetes 07/11/20 06/13/22 History omeprazole 40 mg capsule,delayed 40 mg PO DAILY gerd 07/11/20 06/13/22 History release vitamin E (dl, acetate) 180 mg 800 unit PO DAILY Supplement 07/11/20 06/13/22 History (400 unit) capsule albuterol sulfate 90 mcg/actuation 1 inh inhalation Q6H PRN shortness 06/26/21 06/13/22 Rx aerosol inhaler of breath or wheezing 90 days #8.5 grams spironolactone 50 mg tablet 50 mg PO DAILY fluid #90 tabs 03/19/22 06/13/22 Rx amoxicillin 875 mg-potassium 1 tab PO BID face infection 06/13/22 06/13/22 History clavulanate 125 mg tablet clopidogrel 75 mg tablet 75 mg PO DAILY Blood thinner 06/13/22 06/14/22 History glipizide 10 mg tablet, extended 10 mg PO DAILY Diabetes 06/13/22 06/13/22 History release 24 hr isosorbide mononitrate 60 mg 60 mg PO DAILY HEART 06/13/22 06/14/22 History tablet,extended release 24 hr linagliptin 5 mg tablet (Tradjenta) 5 mg PO DAILY Diabetes 06/13/22 06/13/22 History losartan 50 mg tablet 50 mg PO BID High blood pressure 06/13/22 06/14/22 History metoprolol succinate 50 mg 50 mg PO DAILY HEART RATE/BLOOD 06/13/22 06/14/22 History tablet,extended release 24 hr PRESSURE tiotropium 2.5 mcg-olodaterol 2.5 2 puff inhalation DAILY COPD 06/13/22 06/13/22 History mcg/actuation mist for inhalation (Stiolto Respimat) torsemide 10 mg tablet 10 mg PO BIDL Fluid 06/13/22 06/14/22 History aspirin 81 mg tablet,delayed 81 mg PO DAILY CIRCULATION 06/14/22 06/14/22 History release New Prescriptions to Start Prescriptions: Height: 1.55 m Weight: 73.964 kg Laboratory Results:: Laboratory Results - last 24 hr 06/15/22 11:30: POC Glucose 230 H 06/15/22 16:17: POC Glucose 170 H 06/16/22 05:35: Iron 48, TIBC 367, Iron Saturation 13.90575 L, Ferritin 42.9 06/16/22 05:35: WBC 9.0 D, RBC 3.43 L, Hgb 9.3 L, Hct 29.0 L, MCV 84.6, MCH 27.1, MCHC 32.0, RDW 16.4, Plt Count 148, MPV 8.8, Neut % (Auto) 78.9, Lymph % (Auto) 12.5, [place] % (Auto) 3.7, Eos % (Auto) 4.7, Baso % (Auto) 0.2, Neut # (Auto) 7.1, Lymph # (Auto) 1.1, [place] # (Auto) 0.3, Eos # (Auto) 0.4, Baso # (Auto) 0.0 06/16/22 05:35: Sodium 135 L, Potassium 4.0, Chloride 109 H, Carbon Dioxide 18 L, Anion Gap 12.0, BUN 28 H, Creatinine 1.20 H, Estimated Creat Clear 52, Estimated GFR 45 L, Est GFR ( Amer) 54 L D, Glucose 163 H, Calcium 7.0 L, Phosphorus 2.4 L, Magnesium 2.0, Total Bilirubin 0.7, AST 33 D, ALT 22 D, Alkaline Phosphatase 88, Total Protein 6.0 L, Albumin 3.0 L, Globulin 3.0, Albumin/Globulin Ratio 1.0 L 06/16/22 05:37: POC Glucose 186 H Medical History: Medical History (Updated 06/13/22 @ 23:41 by Riley Cline DNP) Abnormal ankle brachial index (GORDON) Abnormal CT of the abdomen Abnormal EKG Chest pain COPD (chronic obstructive pulmonary disease) DM (diabetes mellitus) Dyspnea Ex-smoker Family history of heart disease HLD (hyperlipidemia) HTN (hypertension) PAD (peripheral artery disease) Right carotid bruit Assessment and Plan Assessment and plan all Dx Assessment and Plan for all problems:: Pharmacokinetic dosing service Objective: Patient: Floor: Age: 67 yo Serum creatinine: 1.2 mg/dL Height: 61.0 Inches Weight (kg): 74 Assessment: IBW (kg): 47.80 Dosing wt(kg): 74 Estimated Creatinine clearance (ml/min): 33.4 CRCL method: Cockcroft and Gault using ibw(default). Drug selected: Vancomycin Loading
--- NOTE | 2022-06-16 11:03 | EXP.CARD.CON ---
History of Present Illness History of Present Illness Consult date: 06/16/22 Requesting physician: Aj De La Cruz Consult reason: atrial fibrillation Chief complaint: face cellulite History of present illness: 67 year old white female with past medical hx of DM, anxiety, hypothyroidism, PAD, and CAD is currently admitted for right facial cellulitis. Patient developed afib rvr the other night and was started on an amio drip and converted to NSR. Patient denies chest pain or soa. Currently NSR and off of drip. Cardiology asked to evaluate. [facility] Disclaimer: The information contained in this section may have been updated after the patient was seen, as this information can be updated by other users. Medical History (Updated 06/16/22 @ 11:15 by Kamila Jurado APRN) Abnormal ankle brachial index (GORDON) Abnormal CT of the abdomen Abnormal EKG Chest pain COPD (chronic obstructive pulmonary disease) DM (diabetes mellitus) Dyspnea Ex-smoker Family history of heart disease HLD (hyperlipidemia) HTN (hypertension) PAD (peripheral artery disease) Right carotid bruit Surgical History History of cholecystectomy Social History Smoking Status: Former smoker second hand exposure: No alcohol intake: never substance use type: denies use current occupational status: employed Travel in the last 8 weeks: None household members: spouse housing: house current occupational exposures/hazards: No Review of Systems Review of Systems Review of systems:: pertinent systems reviewed and negative unless documented below *Neurologic Neurologic: Reports system reviewed and no additional complaints, except as documented Exam Data for Last 24 hours Vital signs and Labs for Last 24 Hours: Temp Pulse Resp BP Pulse Ox FiO2 98.5 F 77 18 118/58 L 93 L 2 06/16/22 08:00 06/16/22 08:00 06/16/22 08:00 06/16/22 08:00 06/16/22 08:00 06/16/22 08:00 Laboratory Results - last 24 hr 06/15/22 11:30: POC Glucose 230 H 06/15/22 16:17: POC Glucose 170 H 06/16/22 05:35: Iron 48, TIBC 367, Iron Saturation 13.65386 L, Ferritin 42.9 06/16/22 05:35: WBC 9.0 D, RBC 3.43 L, Hgb 9.3 L, Hct 29.0 L, MCV 84.6, MCH 27.1, MCHC 32.0, RDW 16.4, Plt Count 148, MPV 8.8, Neut % (Auto) 78.9, Lymph % (Auto) 12.5, [place] % (Auto) 3.7, Eos % (Auto) 4.7, Baso % (Auto) 0.2, Neut # (Auto) 7.1, Lymph # (Auto) 1.1, [place] # (Auto) 0.3, Eos # (Auto) 0.4, Baso # (Auto) 0.0 06/16/22 05:35: Sodium 135 L, Potassium 4.0, Chloride 109 H, Carbon Dioxide 18 L, Anion Gap 12.0, BUN 28 H, Creatinine 1.20 H, Estimated Creat Clear 52, Estimated GFR 45 L, Est GFR ( Amer) 54 L D, Glucose 163 H, Calcium 7.0 L, Phosphorus 2.4 L, Magnesium 2.0, Total Bilirubin 0.7, AST 33 D, ALT 22 D, Alkaline Phosphatase 88, Total Protein 6.0 L, Albumin 3.0 L, Globulin 3.0, Albumin/Globulin Ratio 1.0 L 06/16/22 05:37: POC Glucose 186 H I & O for Last 24 hours: Intake & Output 06/13/22 06/14/22 06/15/22 06/16/22 23:59 23:59 23:59 23:59 Intake Total 1500 / 1750 1377 / 3704 2687 / 2687 1382 / 1382 Output Total 151 / 451 750 / 750 1000 / 1000 Balance 1500 / 1750 1226 / 3253 1937 / 1937 382 / 382 Weight 140 lb 152 lb 4 oz 155 lb 5 oz 163 lb 1 oz Microbiology Reports for the Last 24 Hours: Microbiology 06/13/22 22:15 Blood Blood Culture - Preliminary NO GROWTH AFTER 48 HOURS 06/13/22 22:15 Blood Blood Culture - Preliminary NO GROWTH AFTER 48 HOURS Constitutional Constitutional: no acute distress *Routine HEENT Exam Comments: Right facial redness and swelling *Routine Respiratory Exam Respiratory: Present CTA bilaterally and symmetric chest movement *Routine Cardiovascular Exam Cardiovascular: Present RRR, Normal S1 and Normal S2 *Routine Abdominal Exam Abdominal: Present soft and normoactive chris
[2022-06-16 13:14] LABS: POC Glucose,Bedside 169 (70-110)
--- NOTE | 2022-06-16 13:39 | PC.NURSE ---
Report from SUMANTH Saul
--- NOTE | 2022-06-16 17:08 | PC.NURSE ---
Report given to SUMANTH Rutledge.
[2022-06-16 17:36] LABS: POC Glucose,Bedside 189 (70-110)
--- NOTE | 2022-06-16 20:40 | EXP.ACUTE.PN ---
Subjective *Date: 06/16/22 *Time: 12:16 Interval history: Did well overnight. Improvement in pain of face. Stable on 2 L nasal cannula this morning. Tolerating amiodarone and anticoagulation for her A-fib. Iron studies significant for low levels, complicates her anemia. Denies any nausea or vomiting. Tolerating p.o. intake. Afebrile. Medical Exam Vital signs and Labs for Last 24 Hours: Vital Signs Temp Pulse Pulse Resp BP BP BP 06/16/22 19:53 79 06/16/22 19:53 79 06/16/22 19:53 06/16/22 16:00 06/16/22 16:00 68 06/16/22 16:00 97.6 F 70 18 120/60 06/16/22 12:00 72 06/16/22 12:02 06/16/22 12:00 98.6 F 74 20 115/47 L 06/16/22 11:07 06/16/22 08:00 80 06/16/22 08:00 98.5 F 77 18 118/58 L 06/16/22 08:00 06/16/22 08:00 98.3 F 06/16/22 06:10 73 06/16/22 06:10 78 06/16/22 06:10 06/16/22 04:00 98.2 F 06/16/22 04:00 80 06/16/22 05:00 75 20 134/55 L 06/16/22 04:00 75 06/16/22 04:00 74 18 126/57 L 06/16/22 00:00 70 06/16/22 00:00 97.9 F 06/16/22 00:00 74 18 116/50 L 06/15/22 23:00 76 18 119/61 06/15/22 22:00 75 105/59 L 06/15/22 21:00 75 18 114/56 L 06/16/22 00:00 06/15/22 20:47 97.9 F Pulse Ox FiO2 06/16/22 19:53 06/16/22 19:53 06/16/22 19:53 95 06/16/22 16:00 95 06/16/22 16:00 06/16/22 16:00 95 06/16/22 12:00 06/16/22 12:02 94 L 06/16/22 12:00 87 L 06/16/22 11:07 87 L 06/16/22 08:00 06/16/22 08:00 93 L 2 06/16/22 08:00 92 L 06/16/22 08:00 06/16/22 06:10 06/16/22 06:10 06/16/22 06:10 94 L 06/16/22 04:00 06/16/22 04:00 06/16/22 05:00 94 L 06/16/22 04:00 95 06/16/22 04:00 92 L 06/16/22 00:00 06/16/22 00:00 06/16/22 00:00 94 L 06/15/22 23:00 93 L 06/15/22 22:00 92 L 06/15/22 21:00 93 L 06/16/22 00:00 94 L 06/15/22 20:47 Intake and Output 06/16/22 06/16/22 06/16/22 07:59 15:59 23:59 Intake Total 1142 / 2102 480 / 2102 480 / 2102 Output Total 600 / 1200 600 / 1200 Balance 542 / 902 -120 / 902 480 / 902 Intake: Intake, Oral Amount 480 / 960 480 / 960 Intake, Total IV Amount 1142 / 1142 0.9 % Sodium Chloride 1000ML 1, 600 / 600 000 ml @ 150 mls/hr IV .[id number] [facility] Rx#:[id number] Amiodarone HCl 900 mg In 442 / 442 Dextrose 5 % in Water 500 ml @ 33.3 mls/hr IV .[id number] [facility] Rx# :[id number] Cefepime HCl 2 gm In 0.9 % 100 / 100 Sodium Chloride 100 ml @ 200 mls/hr IV Q12 [facility] Rx#:[id number] Output: Output, Urine Amount 600 / 800 200 / 800 Output, Urine Amount (Catheter) 400 / 400 [place] 400 / 400 Other: Number of Unmeasured Voids 0 0 Weight 73.964 kg 73.96 kg Patient Weight 06/16/22 23:59 Weight 73.96 kg Laboratory Results - last 24 hr 06/16/22 05:35: Iron 48, TIBC 367, Iron Saturation 13.99856 L, Ferritin 42.9 06/16/22 05:35: WBC 9.0 D, RBC 3.43 L, Hgb 9.3 L, Hct 29.0 L, MCV 84.6, MCH 27.1, MCHC 32.0, RDW 16.4, Plt Count 148, MPV 8.8, Neut % (Auto) 78.9, Lymph % (Auto) 12.5, [place] % (Auto) 3.7, Eos % (Auto) 4.7, Baso % (Auto) 0.2, Neut # (Auto) 7.1, Lymph # (Auto) 1.1, [place] # (Auto) 0.3, Eos # (Auto) 0.4, Baso # (Auto) 0.0 06/16/22 05:35: Sodium 135 L, Potassium 4.0, Chloride 109 H, Carbon Dioxide 18 L, Anion Gap 12.0, BUN 28 H, Creatinine 1.20 H, Estimated Creat Clear 52, Estimated GFR 45 L, Est GFR ( Amer) 54 L D, Glucose 163 H, Calcium 7.0 L, Phosphorus 2.4 L, Magnesium 2.0, Total Bilirubin 0.7, AST 33 D, ALT 22 D, Alkaline Phosphatase 88, Total Protein 6.0 L, Albumin 3.0 L, Globulin 3.0, Albumin/Globulin Ratio 1.0 L 06/16/22 05:37: POC Glucose 186 H 06/16/22 12:03: POC Glucose 169 H 06/16/22 17:26: POC Glucose 189 H I & O for Labs for Last 24 Hours: Intake & Output 03
[2022-06-17] VITALS: BP 138/64; PULSE 70; PULSE 75; RESP 18; TEMP 36.7; O2SAT 93; O2SAT 95
[2022-06-17 01:04] LABS: POC Glucose,Bedside 169 (70-110)
[2022-06-17 04:00] VITALS: BP 143/70; PULSE 70; PULSE 76; RESP 20; TEMP 37.1; O2SAT 93; BMI 30.7
--- NOTE | 2022-06-17 06:06 | PC.NURSE ---
no changes from previous assessment, telemetry nsr, no acute distress, vss.
[2022-06-17 06:12] VITALS: PULSE 80; PULSE 83; O2SAT 92
[2022-06-17 06:28] LABS: Basophils % 0.3 % (0.1-2.0); Eosinophils # 0.3 K/mm3 (0.0-0.4); Eosinophils % 4.7 % (0.1-12.0); Hemoglobin 9.4 g/dL (12.2-16.2); Lymphocytes # 1.2 K/mm3 (0.7-4.5); Lymphocytes % 17.9 % (10-50); Mean Corpuscular HGB Conc 32.4 g/dL (31.8-35.4); Mean Corpuscular Hemoglobin 27.4 pg (27.0-31.2); Mean Corpuscular Volume 84.6 fl (81-99); Mean Platelet Volume 8.4 fl (7.4-10.4); Monocytes # 0.5 K/mm3 (0.1-1.0); Monocytes % 7.2 % (1.7-9.3); Neutrophils # 4.5 K/mm3 (1.8-7.8); Neutrophils % 69.9 % (37.0-80.0); Platelet Count 134 K/mm3 (142-424); Red Blood Count 3.42 M/mm3 (4.20-5.40); Red Cell Distribution Width 16.2 % (11.5-17.5); White Blood Count 6.4 K/mm3 (4.8-10.8)
[2022-06-17 06:41] LABS: POC Glucose,Bedside 209 (70-110)
[2022-06-17 06:41] LABS: POC Glucose,Bedside 165 (70-110)
[2022-06-17 06:42] LABS: Alanine Aminotransferase 20 U/L (12-78); Albumin Level 3.1 g/dl (3.5-5.0); Albumin/Globulin Ratio 1.1 (1.1-1.8); Alkaline Phosphatase 96 U/L (38-126); Anion Gap 10.8 mEq/L (5-15); Aspartate Amino Transferase 32 U/L (14-36); Bilirubin,Total 0.7 mg/dl (0.2-1.3); Blood Urea Nitrogen 20 mg/dl (7-17); Calcium 7.4 mg/dl (8.4-10.2); Carbon Dioxide 18 mmol/L (22.0-30.0); Chloride 109 mmol/L (98-107); Creatinine Clearance Estimated 56 mL/min (50-200); Estimated Glomerular Filt Rate 49 ml/min (>60); GFR (African American) 60 ML/MIN (>60); Globulin 2.9 g/dL (1.3-3.2); Glucose 137 mg/dl (74-100); Phosphorous 2.3 mg/dl (2.5-4.5); Potassium 3.8 mmoL/L (3.5-5.1); Sodium 134 mmol/L (136-145)
[2022-06-17 07:34] VITALS: BP 133/74; PULSE 91; RESP 18; TEMP 36.3; O2SAT 95
--- NOTE | 2022-06-17 08:34 | EXP.PHA.PN ---
Subjective *Date: 06/17/22 *Time: 08:34 Medical Exam Vital signs and Labs for Last 24 Hours: Vital Signs Temp Pulse Pulse Resp BP BP Pulse Ox 06/17/22 07:34 97.4 F L 91 H 18 133/74 95 06/17/22 06:12 83 06/17/22 06:12 80 06/17/22 06:12 92 L 06/17/22 04:00 98.8 F 76 20 143/70 H 93 L 06/17/22 04:00 70 06/17/22 00:00 70 06/16/22 20:00 80 06/17/22 00:00 98.1 F 75 18 138/64 93 L 06/17/22 00:00 95 06/16/22 20:00 98.1 F 80 20 116/49 L 95 06/16/22 20:00 79 95 06/16/22 19:53 79 06/16/22 19:53 79 06/16/22 19:53 95 06/16/22 16:00 95 06/16/22 16:00 68 06/16/22 16:00 97.6 F 70 18 120/60 95 06/16/22 12:00 72 06/16/22 12:02 94 L 06/16/22 12:00 98.6 F 74 20 115/47 L 87 L 06/16/22 11:07 87 L Intake and Output 06/16/22 06/17/22 06/17/22 23:59 07:59 15:59 Intake Total 480 / 2102 340 / 340 Output Total 0 / 1200 Balance 480 / 902 340 / 340 Intake: Intake, Oral Amount 480 / 960 240 / 240 Intake, Total IV Amount 100 / 100 Cefepime HCl 2 gm In 0.9 % 100 / 100 Sodium Chloride 100 ml @ 200 mls/hr IV Q12 [facility] Rx#:[id number] Output: Output, Urine Amount 0 / 800 Other: Number of Unmeasured Voids 0 Weight 73.68 kg Patient Weight 06/17/22 23:59 Weight 73.68 kg Laboratory Results - last 24 hr 06/15/22 21:34: POC Glucose 169 H 06/16/22 12:03: POC Glucose 169 H 06/16/22 17:26: POC Glucose 189 H 06/16/22 20:24: POC Glucose 209 H 06/17/22 05:42: WBC 6.4 D, RBC 3.42 L, Hgb 9.4 L, Hct 29.0 L, MCV 84.6, MCH 27.4, MCHC 32.4, RDW 16.2, Plt Count 134 L, MPV 8.4, Neut % (Auto) 69.9, Lymph % (Auto) 17.9, [place] % (Auto) 7.2, Eos % (Auto) 4.7, Baso % (Auto) 0.3, Neut # (Auto) 4.5, Lymph # (Auto) 1.2, [place] # (Auto) 0.5, Eos # (Auto) 0.3, Baso # (Auto) 0.0 06/17/22 05:42: Sodium 134 L, Potassium 3.8, Chloride 109 H, Carbon Dioxide 18 L, Anion Gap 10.8, BUN 20 H D, Creatinine 1.10 H, Estimated Creat Clear 56, Estimated GFR 49 L, Est GFR ( Amer) 60, Glucose 137 H, Calcium 7.4 L, Phosphorus 2.3 L, Total Bilirubin 0.7, AST 32, ALT 20, Alkaline Phosphatase 96, Total Protein 6.0 L, Albumin 3.1 L, Globulin 2.9, Albumin/Globulin Ratio 1.1 06/17/22 06:29: POC Glucose 165 H I & O for Labs for Last 24 Hours: Intake & Output 06/14/22 06/15/22 06/16/22 06/17/22 23:59 23:59 23:59 23:59 Intake Total 1377 / 3704 2687 / 2687 2102 / 2102 340 / 340 Output Total 151 / 451 750 / 750 1200 / 1200 Balance 1226 / 3253 1937 / 1937 902 / 902 340 / 340 Weight 69.059 kg 70.449 kg 73.96 kg 73.68 kg The patient's infection will respond to the chosen ABx?: Yes (CELLULITIS, BLOOD CULTURE NO GROWTH.) Is the patient receiving the right drug, dose, and route?: Yes Could a more targeted ABx be ordered?: No
--- NOTE | 2022-06-17 08:53 | EXP.DC.SUM ---
General Admission date:: 06/14/22 Discharge date: 06/17/22 HPI HPI HPI: Ms. Medeiros is a 67-year-old female with a past medical history of DM, Anxiety Disorder, Hypothyroidism, CAD. She presents to [facility] with a 1-day history of right sided facial swelling that has worsened throughout the day associated with a greater than 1 week sore throat, fevers, body aches and chills. She reports that she was seen by her PCP earlier in the day and diagnosed with facial cellulitis, given steroids and antibiotics of Augmentin and informed that if it worsened to come to the ER. She reports worsening throughout the day. She reports that her symptoms initially stared with sore throat around 1 week ago and she reports fevers on and off since that time. 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 In the ER, the patient was noted to have a WBC of 22K, Lactic Acid was elevated at 5.1, CT of the neck showed severe facial subcutaneous fat stranding with significant soft tissue swelling on the right consistent with cellulitis. In the ER, the patient had blood cultures drawn. She was placed on empiric coverage to cover for Strep and Staph with Zosyn and Vancomycin. The patient will be admitted with initial impression: Facial Cellulitis, cultures will be drawn. The patient will be continued on antibiotics to cover for Staph and Strep. The plan of care was discussed with the patient and her daughter at bedside. Both verbalized understanding and agreement with the plan of care. Hospital Course Hospital Course Hospital Course: 67-year-old female with past medical history CAD, DM, Hypothyroidism.? Admitted with sepsis secondary to facial cellulitis. Improved with antibiotics. Erythema improved during admission, pain improved with decreased swelling. No concern for septal cellulitis. Went into A-fib RVR secondary to hypotension and sepsis converted normal sinus with amiodarone.?Stable for DC home. Problems addressed as follows: - Right Sidedto only facial Cellulitis CT of the Neck on admission shows severe facial subcutenous fat stranding with significant soft tissue swelling compatible with cellulitis. Blood cultures no growth. Strep positive during admission. Transitioned off Vanc and cefepime to clindamycin to complete 10days of antibiotics. Swelling and pain improved. Tolerating PO intake and PO meds. stable for DC home. Pain improved to only requiring oral opiates 1-2 times a day, Discharged with 3 days of oral pain meds. New onset A-fib RVR converted to normal sinus rhythm - Developed A-fib with RVR due to sepsis. Started on amiodarone drip. Converted to normal sinus rhythm. Transitioned to oral amiodarone, 400 mg daily. Started on Xarelto for paroxysmal A-fib. 15 mg daily, renally dosed. Discharged on event monitor for 2 weeks. Preliminary echo obtained showing EF greater than 50%. Cardiology consulted during admission, follow-up with cardiology in 2 weeks for further management. Hypertension CAD PAD Hyperlipidemia - Cardiology consulted, appreciate their recommendations.? GLEN july 2020 to rca and medical management to the circ. continue aspirin, metoprolol, Lipitor. Stop Plavix in setting of initiation of Xarelto. Continue losartan - Acute on Chronic Kidney Failure: Kidney function improved with IV fluids. Creatinine 1.2.? Appears at baseline - Anemia:? Studies show low iron, would benefit from IV replacement as outpatient. Not requiring transfusion during admission. - Diabetes: Sliding Scale insulin with FSGS during admission. Resumed hoem regimen at discharge. - Hypothyroidism: Continue home Levothyroxine - COPD: Continue home inhalers, Nebs prescribed at [facility]. - Anxiety Disorder: Continue home Benzodiazapine Exam Data for Last 24 hours Vital signs and Labs for Last 24 Hours: Temp Pulse Resp BP Pulse Ox FiO2 97.4 F L 91 H 18 133/74 95 2 06/17/22 07:34
[2022-06-17 11:00] VITALS: O2SAT 86
[2022-06-17 11:09] VITALS: BP 119/57; PULSE 74; RESP 17; TEMP 36.6; O2SAT 91
--- NOTE | 2022-06-17 12:14 | CARE MANAGER ---
Patient has Oxygen at home for night. She is established already with [facility]. Sent order and information for continuous and portable. SUMANTH Wynn
--- NOTE | 2022-06-18 13:07 | CARE MANAGER ---
Spoke with patient for post-discharge phone interview, no issues noted.
[2022-06-24 05:03] LABS: MRSA DNA PCR NEGATIVE
== END 2022-06-17 14:00 | disposition home or self-care (01) | DRG 872 ==
LOC: ER 23:00 → 2ND 06-14 16:44
PROVIDERS: Nurse Practitioner Acute Care; Nurse Practitioner Family; Admitting Provider Student in an Organized Health Care Education/Training Program; Emergency Provider Emergency Medicine; PCP Family Medicine; Visit Provider Student in an Organized Health Care Education/Training Program
DX: A41.9 Sepsis, unspecified organism (principal); L03.211 Cellulitis of face; N17.9 Acute kidney failure, unspecified; R65.20 Severe sepsis without septic shock; F41.9 Anxiety disorder, unspecified; E03.9 Hypothyroidism, unspecified; E11.22 Type 2 diabetes mellitus with diabetic chronic kidney disease; N18.9 Chronic kidney disease, unspecified; I25.10 Atherosclerotic heart disease of native coronary artery without angina pectoris; J44.9 Chronic obstructive pulmonary disease, unspecified; I48.91 Unspecified atrial fibrillation; E78.5 Hyperlipidemia, unspecified; E11.51 Type 2 diabetes mellitus with diabetic peripheral angiopathy without gangrene; Z87.891 Personal history of nicotine dependence; D63.1 Anemia in chronic kidney disease; E87.70 Fluid overload, unspecified
CPT/HCPCS: 36415; 70491; 80048; 80053; 82728; 82962; 83540; 83550; 83605; 83735; 84100; 84145; 85007; 85025; 85651; 86140; 87040; 87430; 87641; 93005; 93270; 93306; 94640; 94761; 99285; C9803; J0282; J0561; J2543; J3370; J7060; Q9967; U0003; U0005

== ENCOUNTER → 2022-07-10 11:40 | Outpatient (CLI) | payer BC, MEDICARE, SELFPAY ==
[2022-07-10 12:10] LABS: Basophils % 0.4 % (0.1-2.0); Eosinophils # 0.4 K/mm3 (0.0-0.4); Eosinophils % 4.7 % (0.1-12.0); Hematocrit 34.4 % (37.0-47.0); Hemoglobin 10.9 g/dL (12.2-16.2); Lymphocytes # 2.5 K/mm3 (0.7-4.5); Lymphocytes % 26.2 % (10-50); Mean Corpuscular HGB Conc 31.7 g/dL (31.8-35.4); Mean Corpuscular Hemoglobin 26.6 pg (27.0-31.2); Mean Platelet Volume 7.9 fl (7.4-10.4); Monocytes # 0.9 K/mm3 (0.1-1.0); Monocytes % 9.2 % (1.7-9.3); Neutrophils # 5.6 K/mm3 (1.8-7.8); Neutrophils % 59.4 % (37.0-80.0); Platelet Count 231 K/mm3 (142-424); Red Blood Count 4.09 M/mm3 (4.20-5.40); Red Cell Distribution Width 15.5 % (11.5-17.5); White Blood Count 9.3 K/mm3 (4.8-10.8)
[2022-07-10 12:34] LABS: Alanine Aminotransferase 30 U/L (12-78); Albumin Level 3.9 g/dl (3.5-5.0); Alkaline Phosphatase 81 U/L (38-126); Anion Gap 16.1 mEq/L (5-15); Aspartate Amino Transferase 44 U/L (14-36); Bilirubin,Indirect 0.7 mg/dL (0.0-0.9); Bilirubin,Total 0.7 mg/dl (0.2-1.3); Bilirubin,Unconjugated 0.7 mg/dL (0.0-1.1); Blood Urea Nitrogen 14 mg/dl (7-17); Calcium 9.1 mg/dl (8.4-10.2); Carbon Dioxide 24 mmol/L (22.0-30.0); Chloride 102 mmol/L (98-107); Chol/HDL Ratio 4.4 (1-3.5); Cholesterol 198 mg/dl (140-200); Estimated Glomerular Filt Rate 37 ml/min (>60); GFR (African American) 45 ML/MIN (>60); Glucose 187 mg/dl (74-100); HDL Cholesterol 45 mg/dl (40-60); Magnesium 1.5 mg/dl (1.6-2.3); Potassium 4.1 mmoL/L (3.5-5.1); Sodium 138 mmol/L (136-145); Total Protein,Serum 7.4 g/dl (6.3-8.2); Triglycerides 121 mg/dl (30-150); VLDL Cholesterol 24 mg/dL (0-40)
[2022-07-10 12:44] LABS: Direct LDL Cholesterol 114.65 mg/dL (100-129)
[2022-07-10 12:48] LABS: Free T4 (Free Thyroxine) 1.82 ng/dl (0.78-2.19)
== END ==
PROVIDERS: PCP Family Medicine; Visit Provider Nurse Practitioner
DX: I25.10 Atherosclerotic heart disease of native coronary artery without angina pectoris (principal); I10 Essential (primary) hypertension; E78.2 Mixed hyperlipidemia; I73.9 Peripheral vascular disease, unspecified
CPT/HCPCS: 36415; 80048; 80061; 80076; 83735; 84439; 84443; 85025

== ENCOUNTER 2022-10-17 12:36 | Observation (INO) | payer BC, MEDICARE, SELFPAY ==
[2022-10-17] VITALS (19 sets, daily range): BP systolic 108–161; BP diastolic 52–84; PULSE 63–76; RESP 16–20; TEMP 36.7; O2SAT 88–100; BMI 27.8
--- NOTE | 2022-10-17 10:14 | IR_ITS ---
APPROVED REPORT Patient Location: Outpatient [place] Laborer: RYAN Alejandra RT (R) PROCEDURES Left heart catheterization Left ventriculogram Selective coronary angiogram INDICATION Unstable angina, Known coronary artery disease Informed consent was obtained prior to the procedure. TECHNIQUE One percent lidocaine used to anesthetize the right anterior aspect of the wrist. The right radial artery was accessed via the Seldinger technique. A 6 [place] sheath was placed in the right radial artery. 150 mg magnesium sulfate, 800 mcg of nitroglycerin, 1mg Lidocaine and 5000 U Heparin were given through the arterial sheath. The papa catheter was also used to perform left heart catheterization, left ventriculogram and selective coronary angiogram. At the end of the procedure the sheath was removed good hemostasis was achieved using Traclet band, patient was transferred to the postop holding area in stable condition. ANGIOGRAPHIC RESULTS The left main artery Normal The left anterior descending artery Has proximal calcified 70% stenosis with mid vessel 20% stenosis The circumflex artery Codominant with an ostial 80 to 90% stenosis which involves a moderate size ramus intermedius as well as to moderate sized obtuse marginal arteries The right coronary artery Codominant and has stents in the ostial proximal and mid and distal segment in a contiguous manner. The stents are widely patent with minimal in-stent restenosis. The PEREZ ventriculogram reveals Not performed The left ventricular end-diastolic pressure Not measured IMPRESSION Severe coronary artery disease involving proximal LAD, proximal large ramus intermedius and ostial circumflex artery PLAN 1. [facility] 2. Risk factor modification 3. Maximize antianginal medication Electronically signed by : Brad De La Cruz MD 10/17/2022 11:23:16
[2022-10-17 10:49] LABS: Basophils % 0.3 % (0.1-2.0); Eosinophils # 0.4 K/mm3 (0.0-0.4); Eosinophils % 3.5 % (0.1-12.0); Hematocrit 35.9 % (37.0-47.0); Hemoglobin 11.1 g/dL (12.2-16.2); Lymphocytes # 2.4 K/mm3 (0.7-4.5); Lymphocytes % 22.7 % (10-50); Mean Corpuscular HGB Conc 30.8 g/dL (31.8-35.4); Mean Corpuscular Hemoglobin 24.7 pg (27.0-31.2); Mean Platelet Volume 8.9 fl (7.4-10.4); Monocytes # 0.9 K/mm3 (0.1-1.0); Monocytes % 8.8 % (1.7-9.3); Neutrophils # 6.7 K/mm3 (1.8-7.8); Neutrophils % 64.7 % (37.0-80.0); Platelet Count 205 K/mm3 (142-424); Red Blood Count 4.49 M/mm3 (4.20-5.40); Red Cell Distribution Width 15.7 % (11.5-17.5); White Blood Count 10.4 K/mm3 (4.8-10.8)
[2022-10-17 10:57] LABS: Anion Gap 15.8 mEq/L (5-15); Blood Urea Nitrogen 23 mg/dl (7-17); Calcium 9.5 mg/dl (8.4-10.2); Carbon Dioxide 24 mmol/L (22.0-30.0); Chloride 103 mmol/L (98-107); Creatinine Clearance Estimated 40 mL/min (50-200); Estimated Glomerular Filt Rate 37 ml/min (>60); GFR (African American) 45 ML/MIN (>60); Glucose 225 mg/dl (74-100); Potassium 3.8 mmoL/L (3.5-5.1); Sodium 139 mmol/L (136-145)
[2022-10-17 13:36] LABS: PTT Heparin (inpatient only) 36.6 Seconds (23.6-34.0)
--- NOTE | 2022-10-17 14:01 | EXP.CARD.PN ---
Subjective Subjective Date: 10/17/22 Time: 14:01 Principal diagnosis: angina, CAD Interval history: Patient here for chest pain CAD is present and likely stable. GLEN JULY 2020 to the RCA GLEN in 11/2020 to the RCA and medical management to the circ. DAPT with ASA and Plavix. Has been having cp & pressure with activity & and at rest, she is having chest pain right now in the office and feeling like she needs more stents. See HPI. SOB with activity Dizziness & lightheadedness at times Denies Swelling Denies Numbness Denies Fatigue BP is good. Patient weight the same Grade 2 diastolic dysfunction, stable. PAF sinus, having nose bleeds, stopped taking Xarelto. PAD is present and stable Successful reconstruction of the distal abdominal aorta reducing hemodynamically and angiographically severe disease to less than 10% with 3 stents in? 04/2021. DAPT with Plavix and Asa HLD-LDL goal<55. On crestor. Managed by PCP. NICO is 50-69% bilaterally JULY 2020. DM2 is present, controlled per PCP. HgB A1c: 7.4. Ex-smoker. Hx of COPD. Managed by PCP. EKG is SR with 1st degree AV block, nonspecific T wave abnoramlity, rate is 69 bpm. Due to her crescendo angina, CAD hx will get her set up for a LHC. LHC shows: Severe coronary artery disease involving proximal LAD, proximal large ramus intermedius and ostial circumflex artery PLAN 1. Recommend coronary bypass surgery at [facility] 2. Risk factor modification 3. Maximize antianginal medication Exam Data for Last 24 hours Vital signs and Labs for Last 24 Hours: Pulse Resp BP Pulse Ox O2 Del Method 68 20 108/81 L 94 L Room Air 10/17/22 12:45 10/17/22 12:45 10/17/22 12:45 10/17/22 12:45 10/17/22 12:45 Laboratory Results - last 24 hr 10/17/22 10:30: WBC 10.4, RBC 4.49, Hgb 11.1 L, Hct 35.9 L, MCV 80.0 L, MCH 24.7 L, MCHC 30.8 L, RDW 15.7, Plt Count 205, MPV 8.9, Neut % (Auto) 64.7, Lymph % (Auto) 22.7, [place] % (Auto) 8.8, Eos % (Auto) 3.5, Baso % (Auto) 0.3, Neut # (Auto) 6.7, Lymph # (Auto) 2.4, [place] # (Auto) 0.9, Eos # (Auto) 0.4, Baso # (Auto) 0.0, Sodium 139, Potassium 3.8, Chloride 103, Carbon Dioxide 24, Anion Gap 15.8 H, BUN 23 H, Creatinine 1.40 H, Estimated Creat Clear 40, Estimated GFR 37 L, Est GFR ( Amer) 45 L, Glucose 225 H, Calcium 9.5 10/17/22 : APTT 36.6 H I & O for Last 24 hours: Intake & Output 10/14/22 10/15/22 10/16/22 10/17/22 23:59 23:59 23:59 23:59 Output Total 0 / 0 Balance 0 / 0 Weight 147 lb Constitutional Constitutional: no acute distress and average body habitus *Routine HEENT Exam Head: Present normocephalic and atraumatic ENT: Present mucous membranes moist *Routine Neck Exam Neck: Present supple, full ROM and normal carotid upstroke; Absent JVD, carotid bruit or lymphadenopathy *Routine Respiratory Exam Respiratory: Present CTA bilaterally, normal respiratory effort, able to speak in complete sentences and symmetric chest movement *Routine Cardiovascular Exam Cardiovascular: Present RRR, Normal S1 and Normal S2; Absent murmur or gallop *Routine Abdominal Exam Abdominal: Present soft and normoactive bowel sounds; Absent tenderness, distended or organomegaly *Routine Extremities Exam Extremities: Present full ROM, pulses intact and normal capillary refill; Absent cyanosis, clubbing or edema *Routine Skin Exam Skin: Present intact and warm; Absent erythema *Routine Neurological Exam Neurological: Present alert, oriented X3 and CN II-XII intact; Absent sensory deficit or motor deficit Routine Psychiatric Exam Psychiatric: Present normal affect Progress Note: A&P Assessment and plan (1) Crescendo angina: Status: Acute (2) CAD (coronary artery disease): Status: Acute (3) Atrial fibrillation with RVR: Status: Acute (4) PAD (peripheral artery disease): Status: Chronic (5) COPD (chronic obstructive pulmonary disease): Status: Chronic (6) HLD (hyperlipidemia): Status: Chroni
--- NOTE | 2022-10-17 14:07 | CA_ITS ---
APPROVED REPORT EXAM: Limited 2D Echocardiogram Film Technician: Thelma Fournier CRT Ht: 5 ft 1 in Wt: 147lbs BSA: 1.66 BP: 125/53 mmHg Indications: EF CHECK, COPD, PAD, CAD, FULL ECHO 06/14/22 EF 55%, PT HAD CATH TODAY TO BE TRANSFERRED TO FOR CABG 2D Dimensions LVOT 1.46 cm (M/F) 1.5-2.5 M-Mode Dimensions RVDd 3.10 cm (0.9-2.6) LA Diam 4.16 cm (1.9-4.0) LVDd 4.02 cm (3.5-5.7) Ao Diam 3.37 cm (2.0-3.7) LVDs 2.28 cm (3.5-5.7) IVSd 1.49 cm (0.6-1.1) PWd 1.00 cm (0.6-1.1) EF (Teich) 75.00% FS 43.30% EDV (Teich) 70.80 mL ESV (Teich) 17.70 mL Left Ventricle The left ventricle is normal size. The left ventricular systolic function is normal. The left ventricular ejection fraction is within the normal range. There is normal left ventricular wall thickness. There is a prominent mass in the mid to distal lumen at the inferoseptal region, likely representing prominent papillary muscles. There is normal LV segmental wall motion. LVEF is 60%. Right Ventricle The right ventricle is normal size. The right ventricular systolic function is normal. Atria The left atrium size is normal. The right atrium size is normal. Aortic Valve The aortic valve is normal in structure. The aortic valve opens well. Mitral Valve There is mild mitral annular calcification. The mitral valve leaflets are mildly thickened. Tricuspid Valve The tricuspid valve leaflets are thin and pliable. Pulmonic Valve The pulmonary valve is normal in structure. Great Vessels The aortic root is normal in size. Pericardium There is no pericardial effusion. Other Information Study Quality: Adequate Conclusion This was a limited TTE to evaluate for biventricular function. Color and spectral Doppler were not performed. Normal biventricular function is present. Electronically signed by : Alicja Doe, 10/20/2022 14:14:40
--- NOTE | 2022-10-17 14:27 | HMH.PHAINT1 ---
Pharmacy Intervention Comments: Home medications were reviewed and verified using patients hand-written list of medications. -Darrell Brown, PharmD student
--- NOTE | 2022-10-17 14:37 | EXP.HP ---
History of Present Illness *Admission Date: 10/17/22 *Reason for visit:: unstable angina, CAD *History of present illness: Ms. Medeiros is a 67-year-old female with history of CAD, hypothyroid, diabetes, PAD, COPD and hypertension who presented to cardiology clinic today due to unstable angina. She has been having chest pain over the past month at both rest and with exertion. Describes it as substernal. Has known history of coronary artery disease and previous stents. Heart cath in July 2020 with drug-eluting stent to the RCA and subsequent cath in November 2020 with drug-eluting stent to the RCA and medical management to the circumflex. Additionally had successful reconstruction of the distal abdominal aorta with hemodynamic and angiographically severe disease reduced to less than 10% with 3 stents in April 2021. Because of her unstable angina in the cardiology clinic, known CAD history, and EKG with nonspecific T wave abnormalities, patient was taken to the Software Design Engineer for evaluation. Found to have multivessel disease. Cardiology determined patient was a candidate for CABG. Contacted [facility], currently awaiting transfer. Requested admission for medical management while awaits transfer for CABG. Of note she is a diabetic with most recent A1c of 7.4. On my evaluation, patient is pleasant. In bed on heparin drip. Family at bedside. Stable on room air [facility] Disclaimer: The information contained in this section may have been updated after the patient was seen, as this information can be updated by other users. Medical History (Updated 10/17/22 @ 16:08 by Mainor Cohn MD) Abnormal ankle brachial index ([place]ORD[place]) Abnormal CT of the abdomen Abnormal EKG Atrial fibrillation with RVR Chest pain COPD (chronic obstructive pulmonary disease) DM (diabetes mellitus) Dyspnea Ex-smoker Family history of heart disease HLD (hyperlipidemia) HTN (hypertension) PAD (peripheral artery disease) Right carotid bruit Surgical History History of cholecystectomy Family History No significant family history Social History Smoking Status: Former smoker second hand exposure: No alcohol intake: never substance use type: denies use current occupational status: employed Travel in the last 8 weeks: None household members: spouse housing: house current occupational exposures/hazards: No Meds Home Medications and Allergies Home Medications Medication Instructions Recorded Confirmed Type alprazolam 1 mg tablet 1 mg PO TID Anxiety 07/11/20 10/17/22 History levothyroxine 50 mcg tablet 50 mcg PO DAILY thyroid 07/11/20 10/17/22 History metformin 500 mg tablet 500 mg PO BID Diabetes 07/11/20 10/17/22 History vitamin E (dl, acetate) 180 mg 400 unit PO BID Supplement 07/11/20 10/17/22 History (400 unit) capsule albuterol sulfate 90 mcg/actuation 1 inh inhalation Q6H PRN shortness 06/26/21 10/17/22 Rx aerosol inhaler of breath or wheezing 90 days #8.5 grams spironolactone 50 mg tablet 50 mg PO DAILY fluid #90 tabs 03/19/22 10/17/22 Rx glipizide 10 mg tablet, extended 10 mg PO DAILY Diabetes 06/13/22 10/17/22 History release 24 hr linagliptin 5 mg tablet (Tradjenta) 5 mg PO DAILY Diabetes 06/13/22 10/17/22 History metoprolol succinate 50 mg 50 mg PO DAILY High blood pressure 06/13/22 10/17/22 History tablet,extended release 24 hr tiotropium 2.5 mcg-olodaterol 2.5 2 puff inhalation DAILY COPD 06/13/22 10/17/22 History mcg/actuation mist for inhalation (Stiolto Respimat) losartan 50 mg tablet 50 mg PO DAILY High blood pressure 08/14/22 10/17/22 History aspirin 81 mg tablet,delayed 81 mg PO DAILY CAD 10/17/22 10/17/22 History release (Adult Low Dose Aspirin) diltiazem HCl 240 mg 240 mg PO DAILY afib 10/17/22 10/17/22 History capsule,extended release 24 hr isosorbide
[2022-10-17 17:00] LABS: Thyroid Stimulating Hormone 5.09 uIU/mL (0.465-4.68)
[2022-10-17 18:21] LABS: POC Glucose,Bedside 261 (70-110)
--- NOTE | 2022-10-17 18:44 | EXP.DC.SUM ---
General Admission date:: 10/17/22 Discharge date: 10/17/22 HPI HPI HPI: Ms. Medeiros is a 67-year-old female with history of CAD, hypothyroid, diabetes, PAD, COPD and hypertension who presented to cardiology clinic today due to unstable angina. She has been having chest pain over the past month at both rest and with exertion. Describes it as substernal. Has known history of coronary artery disease and previous stents. Heart cath in July 2020 with drug-eluting stent to the RCA and subsequent cath in November 2020 with drug-eluting stent to the RCA and medical management to the circumflex. Additionally had successful reconstruction of the distal abdominal aorta with hemodynamic and angiographically severe disease reduced to less than 10% with 3 stents in April 2021. Because of her unstable angina in the cardiology clinic, known CAD history, and EKG with nonspecific T wave abnormalities, patient was taken to the Flight Test Data Acquisition Technician for evaluation. Found to have multivessel disease. Cardiology determined patient was a candidate for CABG. Contacted , currently awaiting transfer. Requested admission for medical management while awaits transfer for CABG. Of note she is a diabetic with most recent A1c of 7.4. On my evaluation, patient is pleasant. In bed on heparin drip. Family at bedside. Stable on room air Hospital Course Hospital Course Hospital Course: Ms. Medeiros is a 67-year-old female with multiple comorbidities. Admitted after being seen in cardiology clinic and going to the Flight Test Data Acquisition Technician for evaluation of crescendo angina. Found to have critical CAD necessitating CABG. Case discussed with cardiology, request monitoring hemodynamics and managing on heparin drip while awaits transfer to for CABG. medicine admitted for management. Remained stable through the afternoon. Was accepted by for transfer. Problems addressed as follows: Crescendo/unstable angina CAD Status post PCI A-fib -Holding aspirin and Plavix at this time. Patient's home med list does not have Plavix however her fill history shows that it was filled 1 month ago. Holding at this time. -Continue home diltiazem 240 mg daily for A-fib, isosorbide mononitrate 30 times a day, losartan 50 mill daily, spironolactone 50 mg daily, torsemide 10 mg twice daily, and metoprolol 50 mg daily -Echo obtained in May 2022 with preserved EF and grade 2 diastolic dysfunction. -Started on heparin drip, managing per protocol with pharmacy. -Currently chest pain-free Diabetes -Initiated on sliding scale with fingersticks ACHS -Continue home Tradjenta 5 g daily -Holding metformin and glipizide -A1C 9.0 on admission. COPD -Stable on room air, goal saturation greater 90%. Continue home Stiolto 2 puffs daily and albuterol as needed. CKD -Creatinine stable at baseline of 1.4 Continue omeprazole for GERD Hypothyroidism Continued home levothyroxine 50 mcg daily, TSH 5.09 Transfer to for further management Exam Data for Last 24 hours Vital signs and Labs for Last 24 Hours: Temp Pulse Resp BP Pulse Ox O2 Del Method 98.0 F 68 19 126/56 L 91 L Room Air 10/17/22 13:15 10/17/22 13:45 10/17/22 13:45 10/17/22 13:45 10/17/22 13:45 10/17/22 18:39 Laboratory Results - last 24 hr 10/17/22 10:30: WBC 10.4, RBC 4.49, Hgb 11.1 L, Hct 35.9 L, MCV 80.0 L, MCH 24.7 L, MCHC 30.8 L, RDW 15.7, Plt Count 205, MPV 8.9, Neut % (Auto) 64.7, Lymph % (Auto) 22.7, [place] % (Auto) 8.8, Eos % (Auto) 3.5, Baso % (Auto) 0.3, Neut # (Auto) 6.7, Lymph # (Auto) 2.4, [place] # (Auto) 0.9, Eos # (Auto) 0.4, Baso # (Auto) 0.0, Sodium 139, Potassium 3.8, Chloride 103, Carbon Dioxide 24, Anion Gap 15.8 H, BUN 23 H, Creatinine 1.40 H, Estimated Creat Clear 40, Estimated GFR 37 L, Est GFR ( Amer) 45 L, Glucose 225 H, Calcium 9.5 10/17/22 13:13: Hemoglobin A1c 9.0 H, TSH 5.09 H 10/17/22 18:07: POC Glucose 261 H 10/17/22 : APTT 36.6 H I & O for Last 24 hours: Intake & Output 10/14/22 10/15/22
--- NOTE | 2022-10-17 18:48 | PC.NURSE ---
Current Medications Roxann Medeiros [facility] 1955 Albuterol/Ipratropium (Ipratropium/Albuterol 3 Ml Neb) 3 ml IH Q6HP PRN PRN Reason: Shortness Of Breath Stop: 11/16/22 12:54 Alprazolam (Alprazolam 1mg Tablet) 1 mg PO TIDP PRN PRN Reason: Anxiety Stop: 11/16/22 12:54 Diltiazem HCl (Diltiazem Er 240mg Capsule) 240 mg PO DAILY [facility] Stop: 11/17/22 08:59 Fentanyl Citrate (Fentanyl 100mcg/2ml Vial) 50 mcg IV Q3MINP PRN PRN Reason: Moderate to Severe Pain (4-10) Stop: 10/17/22 22:16 Last Admin: 10/17/22 11:22 Dose: 100 mcg Fentanyl Citrate (Fentanyl 250mcg/5ml Vial) 25 mcg IV Q3MINP PRN PRN Reason: Moderate to Severe Pain (4-10) Stop: 10/17/22 22:16 Fentanyl Citrate (Fentanyl 250mcg/5ml Vial) 50 mcg IV Q3MINP PRN PRN Reason: Moderate to Severe Pain (4-10) Stop: 10/17/22 22:16 Fentanyl Citrate (Fentanyl 100mcg/2ml Vial) 25 mcg IV Q3MINP PRN PRN Reason: Moderate to Severe Pain (4-10) Stop: 10/17/22 22:16 Flumazenil (Flumazenil 0.1mg/Ml 5ml Vial) 0.2 mg IV NEEDED PRN PRN Reason: Sedation Stop: 10/17/22 22:16 Sodium Chloride (Sod Chloride 0.9% 500ml Bag) 1,000 mls @ 25 mls/hr IV .Q25H [facility] Stop: 10/18/22 10:16 Last Admin: 10/17/22 11:03 Dose: 25 mls/hr Heparin Sodium/Dextrose (Heparin 25,000 Units In D5w 500ml Premix) 500 mls @ 16 mls/hr IV .Q25H [facility] Stop: 11/16/22 13:44 Last Admin: 10/17/22 14:46 Dose: 16 mls/hr Insulin Human Lispro (Humalog 100 Units/Ml 3ml Vial (Ssi)) 0 unit SQ ACHS [facility]; Protocol Stop: 11/16/22 16:29 Last Admin: 10/17/22 18:13 Dose: 6 unit Irbesartan (Irbesartan 75mg Tablet) 75 mg PO DAILY [facility] Stop: 11/17/22 08:59 Isosorbide Mononitrate (Isosorbide [place] 30mg Tab.Er.24h) 30 mg PO DAILY [facility] Stop: 11/17/22 08:59 Levothyroxine Sodium (Levothyroxine 50mcg (0.05mg) Tab) 50 mcg PO DAILYDM [facility] Stop: 11/17/22 06:59 Metoprolol Succinate (Metoprolol Succinate Xl 50mg Tablet) 50 mg PO DAILY [facility] Stop: 11/17/22 08:59 Midazolam HCl (Midazolam 2mg/2ml Vial) 1 mg IV Q3MINP PRN PRN Reason: Sedation Stop: 10/17/22 22:16 Midazolam HCl (Midazolam Hcl 1mg/1ml 5ml Vial) 1 mg IV Q3MINP PRN PRN Reason: Sedation Stop: 10/17/22 22:16 Last Admin: 10/17/22 11:22 Dose: 5 mg Miscellaneous (Heparin Drip Consult) 1 each NOTAPPLIC CONSULT PHARMACY [facility] Stop: 11/16/22 12:59 Last Admin: 10/17/22 14:20 Dose: Not Given Naloxone HCl (Naloxone 0.4mg/Ml Vial) 0.4 mg IV Q5MINP PRN PRN Reason: Decreased Respirations Stop: 10/17/22 22:16 Non-Formulary Medication (Linagliptin [Tradjenta]) 5 mg PO DAILY [facility] Stop: 11/17/22 08:59 Non-Formulary Medication (Tiotropium-Olodaterol [Stiolto Respimat]) 2 puff IH DAILY [facility] Stop: 11/17/22 08:59 Pantoprazole Sodium (Pantoprazole 40mg Tablet) 40 mg PO HS [facility] Stop: 11/16/22 20:59 Sodium Chloride (Sodium Chloride 0.9% 10ml Flush Syringe) 10 ml IV NEEDED PRN PRN Reason: Maintain IV Site Stop: 11/16/22 10:14 Spironolactone (Spironolactone 25mg Tablet) 50 mg PO DAILY [facility] Stop: 11/17/22 08:59
--- NOTE | 2022-10-18 08:14 | P.CONPHA_ITS ---
[facility] Pharmacy Heparin Dosing Demographic Data Admission date:: 10/17/22 Date: 10/18/22 Time: 08:15 Allergies Allergy/AdvReac Type Severity Reaction Status Date / Time No Known Allergies Allergy Verified 10/17/22 10:49 Height: 1.55 m Weight: 66.6 kg Indication Medication therapy:: Heparin Current Active Problems (Updated 10/17/22 @ 16:08 by Mainor Cohn MD) CKD (chronic kidney disease) stage 3, GFR 30-59 ml/min (Chronic) Afib (Acute) Crescendo angina (Acute) Anxiety disorder (Acute) CAD (coronary artery disease) (Acute) Hypothyroidism (Acute) Diabetes (Acute) PAD (peripheral artery disease) (Chronic) COPD (chronic obstructive pulmonary disease) (Chronic) HLD (hyperlipidemia) (Chronic) HTN (hypertension) (Chronic) CVA?: No Bleeding problem?: No Kidney disease?: No NE?: No Desired PTT range:: 50-75 seconds Labs Anticoagulation Lab Results:: 10/17/22 10:30 Hgb 11.1 L Hct 35.9 L Plt Count 205 Monitoring Dose Monitor 1: Date: 10/17/22 Time: 13:00 PTT Result:: 36.6 Infusion Rate:: 800 UNITS/HR Comment:: 4,000 UNIT BOLUS Core Measures Is INR > or = 2 at discharge?: No Most Recent Labs:: Laboratory Results - last 24 hr 10/17/22 10:30: WBC 10.4, RBC 4.49, Hgb 11.1 L, Hct 35.9 L, MCV 80.0 L, MCH 24.7 L, MCHC 30.8 L, RDW 15.7, Plt Count 205, MPV 8.9, Neut % (Auto) 64.7, Lymph % (Auto) 22.7, [place] % (Auto) 8.8, Eos % (Auto) 3.5, Baso % (Auto) 0.3, Neut # (Auto) 6.7, Lymph # (Auto) 2.4, [place] # (Auto) 0.9, Eos # (Auto) 0.4, Baso # (Auto) 0.0, Sodium 139, Potassium 3.8, Chloride 103, Carbon Dioxide 24, Anion Gap 15.8 H, BUN 23 H, Creatinine 1.40 H, Estimated Creat Clear 40, Estimated GFR 37 L, Est GFR ( Amer) 45 L, Glucose 225 H, Calcium 9.5 10/17/22 13:13: Hemoglobin A1c 9.0 H, TSH 5.09 H 10/17/22 18:07: POC Glucose 261 H 10/17/22 : APTT 36.6 H Were Heparin and Warfarin started on the same day?: No If not, why?: TRANSFERRED
== END 2022-10-17 19:13 | disposition short-term general hospital (02) ==
LOC: 2ND 12:37
PROVIDERS: Internal Medicine; Admitting Provider Internal Medicine Adolescent Medicine; PCP Family Medicine; Visit Provider Internal Medicine Adolescent Medicine
DX: I25.110 Atherosclerotic heart disease of native coronary artery with unstable angina pectoris (principal); E11.22 Type 2 diabetes mellitus with diabetic chronic kidney disease; E78.5 Hyperlipidemia, unspecified; I12.9 Hypertensive chronic kidney disease with stage 1 through stage 4 chronic kidney disease, or unspecified chronic kidney disease; J44.9 Chronic obstructive pulmonary disease, unspecified; I70.213 Atherosclerosis of native arteries of extremities with intermittent claudication, bilateral legs; Z87.891 Personal history of nicotine dependence; E78.2 Mixed hyperlipidemia; E03.9 Hypothyroidism, unspecified; I48.11 Longstanding persistent atrial fibrillation; N18.30 Chronic kidney disease, stage 3 unspecified; Z79.84 Long term (current) use of oral hypoglycemic drugs; Z79.899 Other long term (current) drug therapy
CPT/HCPCS: 80048; 82962; 83036; 84443; 85025; 85730; 93308; 99152; C1725; C1769; G0378; J1644; Q9967

== ENCOUNTER 2024-10-10 09:04 | Outpatient (CLI) | payer MEDICARE, SELFPAY ==
--- OUTSIDE RECORDS SUMMARY | 2024-10-10 09:08 | XMS_ITS | Continuity of Care Document ---
Author Organization [facility] Address [address] [place] [address] Care Team Providers Care Director [employer] Name Role Phone KATHRYN MERCHANT Primary Care Provider Assessment No assessment recorded. Plan of Treatment Reminders Order Date Submit Date Provider Last Modified By Organization Details Last Modified Time Details Appointments None record ed. Lab None record ed. Referral None record ed. Procedures None record ed. Surgeries None record ed. Imaging XR, foot 025 08/20/19 25 [email or web address] [facility], [address] [place] [address], [phone], 09:41:27 Medication Orders None record ed. Patient TargetsNo targets recorded. Patient InstructionsNo instructions recorded. Reason for Referral None Reported. Results Created Date Observation Date Name Description Value Unit Range Abnormal Flag Note LastModifiedBy Organization Detail LastModifiedTime 08/19/19 25 XR, foot No observ ation record ed. CRYSTAL [address], [address], 08/19/2024 09:41:25 08/20/19 25 XR, foot No observ ation record ed. [email or web address] [address], [address], 08/19/2024 08:56:54 Result Notes None recorded. Problems Name Problem SNOMED Code Status Onset Date Resolution Date Notes Provider Name and Address Organization Details Recorded Time Injury of left foot 4438291704102 9108 Active 2024 BALA Weaver LPR [facility] & [place] 5 08:12:48 Closed fracture of third metatarsal bone 928549257 Active 2024 BALA Weaver [facility] & [place] 5 08:58:01 Problem Notes None recorded. Medical Equipment None Reported. Allergies No known drug allergies Medications Name Sig Start Date Stop Date Status Note LastModified by Organization Details LastModified Time prednisone 10 mg tablet TAKE ONE (1) TABLET BY MOUTH DAILY active Not Available Not Available No t Available alprazolam 1 mg tablet TAKE 1 TABLET BY MOUTH THREE (3) TIMES DAILY active Not Available Not Available No t Available metoprolol succinate ER 50 mg tablet,exten ded release 24 hr TAKE ONE (1) TABLET BY MOUTH ONCE DAILY FOR HIGH BLOOD PRESSURE active Not Available Not Available No t Available glipizide ER 10 mg tablet, extended release 24 hr TAKE 1 TABLET BY MOUTH ONCE DAILY active Not Available Not Available No t Available isosorbide mononitrate ER 30 mg tablet,exten ded release 24 hr TAKE 1 TABLET BY MOUTH ONCE DAILY active Not Available Not Available No t Available torsemide 10 mg tablet TAKE TWO (2) TABLETS BY MOUTH ONCE DAILY active Not Available Not Available N ot Available valsartan 80 mg tablet TAKE 1 TABLET BY MOUTH ONCE DAILY active Not Available Not Available No t Available clopidogrel 75 mg tablet TAKE 1 TABLET BY MOUTH EVERY DAY active Not Available Not Available No t Available omeprazole 40 mg capsule,bobby yed release TAKE 1 CAPSULE BY MOUTH EVERY DAY active Not Available Not Available No t Available tramadol 50 mg tablet TAKE 1 TABLET BY MOUTH THREE TIMES DAILY, NEEDED active Not Available Not Available No t Available levothyroxin e 75 mcg tablet TAKE 1 TABLET BY MOUTH ONCE DAILY active Not Available Not Available No t Available levothyroxin e 50 mcg tablet TAKE ONE (1) TABLET BY MOUTH EVERY DAY IN THE MORNING. active Not Available Not Available No t Available metformin 1,000 mg tablet TAKE ONE (1) TABLET BY MOUTH TWO TIMES DAILY active Not Available Not Available No t Available metoprolol succinate ER 25 mg tablet,exten ded release 24 hr TAKE 1 TABLET BY MOUTH ONCE DAILY active Not Available Not Available No t Available metformin ER 500 mg tablet,exten ded release 24 hr TAKE 1 TABLET BY MOUTH TWICE DAILY active Not Available Not Available No t Available amoxicillin 500 mg-potassium clavulanate 125 mg tablet TAKE ONE (1) TABLET BY MOUTH TWO TIMES DAILY active Not Available Not Available No t Available vitamin E (dl, acetate) 180 mg (400 unit) capsule TAKE 2 CAPSULES BY MOUTH ONCE DAILY active Not Available Not Available No t Available Tradjenta 5 mg tablet TAKE 1 TABLET BY MOUTH EVERY DAY active Not Available Not Available No t Available Ozempic 1 mg/dose (4 mg/3 mL) subcutaneous pen injector INJECT ONE (1) MG SUBCUTANEOU SLY EVERY WEEK FOR 30 DAYS. active Not Available Not Available No t Available Dexcom G7 Sensor device CHANGE SENSOR EVERY 10 DAYS active Not Available Not Available No t Available Ozempic 0.25 mg or 0.5 mg (2 mg/3 mL) subcutaneous pen injector INJECT 0.5 MG SUBCUTANEOU SLY ONCE WEEKLY. active Not Available Not Available No t Available Vitals None Recorded Social History None recorded. Functional Status None recorded. Mental Status None recorded. Family History Nothing Reported. Medical History No medical history recorded. Gynecological HistoryNo gynecological history recorded. Obstetrics History GPAL:G 0 P 0 0 0 0 Immunizations Vaccine Type Date Status Note Provider Nam e and Address Organization Details Recorded Time COVID-19, mRNA, LNP-S, PF, 100 mcg/0.5mL dose or 50 mcg/0.25mL dose 04/11/2020 completed BALA Tracy - [facility] & [place] 08/19/2024 08:34:27 COVID-19, mRNA, LNP-S, PF, 100 mcg/0.5mL dose or 50 mcg/0.25mL dose 05/18/2020 completed BALA Tracy - [facility] & [place] 08/19/2024 08:34:27 Past Encounters Encounter ID Performer Location Encounter Start Date Encounter Closed Date Diagnosis/Indication Diagnosis SNOMED-CT Code Diagnosis ICD10 Code Diagnosis Note [id number] EARL GIRARD NP [facility] [address] [facility] [address] 08/19/2024 08:27:15 08/19/2024 09:38:55 Closed fracture of third metatarsal bone 231564525 S92.335D [id number] Missy Hermosillo NP [facility] [address] [place] [address] 08/19/2024 07:57:34 08/19/2024 08:13:10 Closed fracture of third metatarsal bone 467249105 S92.335D Health Concerns Section Related Observation LastModified by Organization Detai ls LastModified Time None Recorded Concern Status LastModified by Organization Details LastModified Time None Recorded Payers Encounter Date Sequence Insurance Name Policy Number Policy Richardson Covered Member ID Richardson Member ID Guarantor Name 08/19/2024 1 [employer] (MEDICARE REPLACEMENT/A DVANTAGE - PPO) Roxann Medeiros [id number] Roxann Medeiros Notes Date Note Type Note Provider Name and Address Organization Details Recorded Time 08/19/2024 text/html Patient is here today for recheck xrays of Closed nondisplaced fracture of third metatarsal bone of left foot. Patient stated about a week ago she fell at [employer], the walking boot was tripping her. So she has been out of the boot for a week. Denies any pain. Wearing regular shoe. Pt stated she is doing well. [place]rays taken [place] [facility] EARL GIRARD NP [address] [facility],[address], [place], [address], [facility] - [facility] - [facility] 08/19/2024 09:41:48 OBGyn Episode No OBEpisode recorded.
--- OUTSIDE RECORDS SUMMARY | 2024-10-10 09:08 | XMS_ITS | Encounter Summary ---
Author Organization Healthcare Address [address] [place] [address] Care Team Providers Care Resident Physician In Radiology Name Role Phone Jeanmarie Gordon MD Primary Care Provider Brad De La Cruz MD Unavailable [phone] Encounter Details Date Type Department Care Team (Late st Contact Info) Description 10/27/2022 Lab Requisition [facility] [address] [place] [address] Vangie Brink MD [address] [address] Encounter for general adult medical examination without abnormal findings Social History Tobacco Use Types Packs/Day Years Used Date Smoking Tobacco: Former Cigarettes 1 15 Smokeless Tobacco: Never Alcohol Use Standard Drinks/Week Comments Never 0 (1 standard drink = 0.6 oz pur e alcohol) CAGE ASSESSMENT Answer Date Recorded Cage unable to access Not on file 10/18/2022 Cage max number of drinks Not on file 2022 Cage Beverages a week Not on file 10/18/2022 Have you ever felt you should CUT down on your d rinking? 0 10/18/2022 Have you been ANNOYED by people criticizing your drinking? 0 10/18/2022 Have you felt GUILTY about your drinking? 0 10/18/2022 Have you had a drink first t tony in the morning ([employer]) to steady your nerves or to get rid of a hangover? 0 10/18/2022 CAGE Questionnaire Score 0 023 Comments No Sex and Gender Information Value Date Recorded Sex Assigned at Not on file Legal Sex Female 12:42 PM EDT Gender Identity Not on file Sexual Orientation Not on file documented as of this encounter Functional Status * Calculated C-SSRS Risk Score (Lifetime/Recent) Answer Date of Assessment Author No Risk Indicated 10/28/2022 8:00 PM EDT Rain hRodes RN * Question Answer Date of Assessment Author 1. Wish to be (Past 1 Month) No 10/28/2022 8:00 PM EDT Rain Sepulveda RN 2. Non-Specific Active Suici janel Thoughts (Past 1 Month) No 10/28/2022 8:00 PM EDT Cesar Sepulveda RN 3. Active Suicidal Ideation with any Methods (Not Plan) Without Intent to Act (Past 1 Month) No 10/28/2022 8:00 PM EDT Rain Sepulveda RN 4. Active Suicidal Ideation with Some Intent to Act, Without Specific Plan (Past 1 Month) No 10/28/2022 8:00 PM EDT Rain Sepulveda RN 5. Active Suicidal Ideation with Specific Plan and Intent (Past 1 Month) No 10/28/2022 8:00 PM EDT Rain Sepulveda RN 6. Suicidal Behavior (Lifetime) No 8:00 PM EDT Rain Sepulveda RN documented as of this encounter Plan of Treatment Not on file documented as of this encounter Procedures Procedure Name Priority Date/Time Associated Diagnosis Comments MULTI DRUG RESISTANCE TEST Routine 10/27/2022 8:25 AM EDT Encounter for general adult medical examination without abnormal findings documented in this encounter Results * Multi Drug Resistance Test (10/27/2022 8:25 AM EDT) Culture No growth at day 2 10/29/2022 1:15 PM EDT [facility] Swab (Nares and Eli Rectal) 10/27/2022 8:25 AM EDT 10/27/2022 9:13 AM EDT us Vangie Randolph MD LAB MICROBIOLOGY - GENERAL ORDERABLES Final Result Performing Organization Address City/State/[facility] Co de Phone Number HEALTHCARE LAB [address] [place] [address] documented in this encounter Visit Diagnoses Diagnosis Encounter for general adult medical examination without abnormal findings documented in this encounter Care Teams Resident Physician In Radiology Relationship Specialty Start Date End Date Jeanmarie Gordon MD [address] [place] [address] PCP - General 10/18/21 Brad De La Cruz MD [address] [facility] [address] [place] [address] Referring Physician Cardiology 10/22/22 documented as of this encounter
--- OUTSIDE RECORDS SUMMARY | 2024-10-10 09:09 | XMS_ITS | Data Portability ---
Author Organization [facility] Address [address] [place] [address] Care Team Providers Care Storage Receipt Poster Name Role Phone MAYUR KATHRYN Primary Care Provider [phone] Assessment No assessment recorded. Plan of Treatment Reminders Order Date Submit Date Provider Last Modified By Organization Details Last Modified Time Details Appointments None record ed. Lab None record ed. Referral None record ed. Procedures None record ed. Surgeries None record ed. Imaging XR, foot 025 08/20/19 25 [facility], [address] [place] [address], [phone], 5 09:41:27 XR, foot 025 08/20/19 25 [email or web address] [facility], [address] [place] [address], [phone], 5 09:24:52 XR, foot 025 07/16/19 25 [facility], [address] [place] [address], [address], 5 09:51:03 XR, foot 025 07/16/19 25 [email or web address] [facility], [address] [place] [address], [address], 5 15:13:57 XR, foot 025 06/25/19 25 [email or web address] [facility], [address] [place] [address], [phone], 13:21:29 Medication Orders None record ed. Patient TargetsNo targets recorded. Patient InstructionsNo instructions recorded. Reason for Referral None Reported. Results Created Date Observation Date Name Description Value Unit Range Abnormal Flag Note LastModifiedBy Organization Detail LastModifiedTime 06/22/19 25 XR, foot No observ ation record ed. CRYSTAL [address], [address], 06/24/2024 08:35:14 06/25/19 25 XR, foot No observ ation record ed. [address], [address], 06/24/2024 11:44:15 07/15/19 25 XR, foot No observ ation record ed. CRYSTAL [address], [address], 07/15/2024 08:27:12 07/16/19 25 XR, foot No observ ation record ed. [address], [address], 07/15/2024 08:12:31 08/19/19 25 XR, foot No observ ation record ed. CRYSTAL [address], [address], 08/19/2024 09:41:25 08/20/19 25 XR, foot No observ ation record ed. [address], [address], 08/19/2024 08:56:54 Result Notes None recorded. Problems Name Problem SNOMED Code Status Onset Date Resolution Date Notes Provider Name and Address Organization Details Recorded Time Injury of left foot 8373017373662 9108 Active 2024 [facility] [place] 5 08:12:48 Closed fracture of third metatarsal bone 414635325 Active 2024 [facility] [place] 5 08:58:01 Problem Notes None recorded. Medical [...] 50 mcg/0.25mL dose 04/11/2020 completed BALA Tracy [facility] & [place] 08/19/2024 08:34:27 COVID-19, mRNA, LNP-S, PF, 100 mcg/0.5mL dose or 50 mcg/0.25mL dose 05/18/2020 completed BALA Tracy [facility] & [place] 08/19/2024 08:34:27 Past Encounters Encounter ID Performer Location Encounter Start Date Encounter Closed Date Diagnosis/Indication Diagnosis SNOMED-CT Code Diagnosis ICD10 Code Diagnosis Note [id number] EARL GIRARD NP [facility] [address] [place] [address] 06/24/2024 08:20:35 06/24/2024 09:45:44 Injury of left foot 1012547467 1544934 S99.922A Closed fra cture of third metatarsal bone 575049752 S92.335A [id number] El Guerra MD [place] [address] [address] [facility] [place] [address] 06/24/2024 07:52:12 06/24/2024 08:18:31 Injury of left foot 7221742274 8547833 S99.922A [id number] EARL GIRARD NP [place] [address] [address] [place] [address] 07/15/2024 08:16:00 07/15/2024 08:47:55 Injury of left foot 9009492527 4578510 S99.922D Closed fra cture of third metatarsal bone 743939538 S92.335D [id number] Missy Hermosillo NP [place] [address] [address] [facility] [place] [address] 07/15/2024 07:55:21 07/15/2024 08:12:58 Injury of left foot 7020838947 8899386 S99.922D [id number] EARL GIRARD NP [place] [address] [address] [place] [address] 08/19/2024 08:27:15 08/19/2024 09:38:55 Closed fracture of third metatarsal bone 494585282 S92.335D [id number] Missy Hermosillo NP [place] [address] [address] [facility] [place] [address] 08/19/2024 07:57:34 08/19/2024 08:13:10 Closed fracture of third metatarsal bone 448548070 S92.335D Health Concerns Section Related Observation LastModified by Organization Detai ls LastModified Time None Recorded Concern Status LastModified by Organization Details LastModified Time None Recorded Advance Directives Directive None Recorded Payers Insurance Date Sequence Insurance Name Policy Number Policy Richardson Covered Member ID Richardson Member ID Guarantor Name 08/24/2024 1 [employer] (MEDICARE REPLACEMENT/A DVANTAGE - PPO) Roxann Medeiros [id number] Roxann Medeiros 06/24/2024 1 [id number]) [id number] Roxann Medeiros [id number] Roxann Medeiros Notes Date Note Type Note Provider Name and Address Organization Details Recorded Time 06/24/2024 text/html [facility]. DOI- Almost 3 weeks ago. Pt was carrying in her groceries and stepped and her toes bent back. Pt went to ER @ [facility] and had left foot x-rays on 06.17.24: Ill-defined linear lucency through the mid to distal shaft of the third metatarsal highly suspicious for nondisplaced fracture with overlying soft tissue swelling.Pt had x-rays this morning (06.24.24) as well at Dr. Ivan. Pt is wearing a regular shoe and has been since incident.[id number] EARL GIRARD, CEDRIC [address] [facility],[address], [place], [address], [facility] & [place] 06/24/2024 12:19:49 07/15/2024 text/html [facility] Ill-defined linear lucency through the mid to distal shaft of the third metatarsal highly suspicious for nondisplaced fracture with overlying soft tissue swelling.Pt states she has not had any improvement in pain since we last saw her on 06/24/24. Pt states she does sometimes walk around without the boot when at home but wears it when she is leaving her house.Pt takes tylenol for pain as needed. Pt had [place] [facility] [place].[id number] EARL GIRARD NP [address] [facility] [address], [place], [address], [facility] - [facility] & [place] 07/15/2024 10:14:01 08/19/2024 text/html Patient is here today for recheck xrays of Closed nondisplaced fracture of third metatarsal bone of left foot. Patient stated about a week ago she fell at [employer], the walking boot was tripping her. So she has been out of the boot for a week. Denies any pain. Wearing regular shoe. Pt stated she is doing well. [place] [facility] EARL GIRARD, CEDRIC [address] [facility],[address], [place], [address], [place] - [facility] 08/19/2024 09:41:48 OBGyn Episode No OBEpisode recorded.
--- OUTSIDE RECORDS SUMMARY | 2024-10-10 09:09 | XMS_ITS | Clinical Summary ---
Author Organization [facility] Address [address] [place] [address] Care Team Providers Care Associate Editor Name Role Phone Jeanmarie Gordon MD Primary Care Provider [phone] Allergies No known active allergies Medications diltiazem XR (DILACOR XR) 240 MG 24 hr capsule 5 10/11/2015 Ac tive spironolactone (ALDACTONE) 50 MG tablet 5 10/09/2015 Active ALPRAZolam (XANAX) 1 MG tablet 2 09/10/2015 Active vitamin E 400 UNIT capsule 5 10/11/2015 Active levothyroxine (SYNTHROID, LEVOTHROID) 25 MCG tablet 3 10/11/2015 Active omeprazole (PriLOSEC) 40 MG capsule 5 10/11/2015 Active furosemide (LASIX) 20 MG tablet 3 09/26/2015 Active metFORMIN (GLUCOPHAGE) 500 MG tablet 5 09/10/2015 Active zolpidem (AMBIEN) 5 MG tablet 0 09/17/2015 Active VENTOLIN HFA 108 (90 BASE) MCG/ACT inhaler 2 09/17/2015 Act elian traMADol (ULTRAM) 50 MG tablet 0 09/17/2015 Active aspirin 81 MG EC tablet Take 81 mg by mouth daily. Active Active Problems Problem Noted Date Diagnosed Date Mediastinal adenopathy 10/18/2015 Mucopurulent chronic bronchitis 10/18/2015 NATIVIDAD (obstructive sleep apnea) 10/18/2015 Overview (10/18/2015): Sleep study [place] Noncompliant with CPAP Nodule of right lung 10/11/2015 Overview (10/11/2015): History of Hypothyroidism 10/11/2015 Overview (10/11/2015): Adult GERD (gastroesophageal reflux disease) 6 Type 2 diabetes mellitus 10/11/2015 Overview (10/18/2015): DX 2015 Anxiety 10/11/2015 Benign essential hypertension 10/11/2015 DDD (degenerative disc disease), cervical 2015 Centrilobular emphysema 10/11/2015 Osteopenia 10/11/2015 Radiculopathy of leg 10/11/2015 Overview (10/18/2015): Right leg. Lumbar disk Abnormal liver function 10/11/2015 Spinal stenosis of lumbar region at multiple lev els 10/11/2015 Hyperlipidemia 10/11/2015 Steatohepatitis, non-alcoholic 10/11/2015 Tobacco abuse 10/11/2015 Overview (10/11/2015): Light Tobacco smoker Resolved Problems Problem Noted Date Diagnosed Date Resolved Date Dyspepsia 10/11/2015 10/18/2015 Hyperglycemia 10/11/2015 10/18/2015 Upper respiratory infection 10/11/2015 10/18/2015 Family History Medical History Relation Name Comments Other Brother 1 Myocardial Infa rction Heart attack Brother 2 Heart attack Brother 3 Thyroid cancer Daughter Other Father Myocardial Infa rction Other Mother Myocardial Infa rction Cancer Paternal Aunt breast Diabetes Paternal Grandmother Relation Name Status Comments Brother 1 (Age 55) Brother 2 (Age 45) Brother 3 (Age 40) Daughter Alive Father (Age 55) Mother (Age 65) Paternal Aunt Paternal Grandmother Sister 1 Alive Sister 2 Alive Sister 3 Alive Son Alive Social History Tobacco Use Types Packs/Day Years Used Date Smoking Tobacco: Heavy Smoker Cigarettes 0.5 44 Alcohol Use Standard Drinks/Week Comments No 0 (1 standard drink = 0.6 oz pur e alcohol) Abuse Screen Answer Date Recorded Unsafe at Home or Work/School Not on file Feels Threatened by Someone? Not on file 11/2022 Does Anyone Keep You from Co ntacting Others or Doint Things Outside the Home? Not on file 12/29/2022 Physical Sign of Abuse Present Not on file 1 Housing Stability Answer Date Recorded Current Living Arrangements Not on file 11/2022 Potentially Unsafe Housing Conditions Not on rosalie e 12/29/2022 Family and Community Support Answer Maikol e Recorded Help with Day-to-Day Activities Not on file 12/29/2022 Lonely or Isolated Not on file 12/29/2022 Employment Answer Date Recorded Do you want help finding or keeping work or a nito b? Not on file 12/29/2022 Disabilities Answer Date Recorded Concentrating, Remembering, or Making Decisions Difficulty Not on file 12/29/2022 Doing Errands Independently Difficulty Not on fi le 12/29/2022 Education Answer Date Recorded Help with school or training? 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 Not on file Not on file Last Filed Vital Signs Vital Sign Reading Time Taken Comments Blood Pressure 122/74 10/18/2015 1:13 PM EDT Pulse 89 10/18/2015 1:13 PM EDT Temperature 36.6 C (97.9 F) 10/18/2015 1:13 PM EDT Respiratory Rate 16 10/18/2015 1:13 PM EDT Oxygen Saturation 94% 10/18/2015 1:13 PM EDT Inhaled Oxygen Concentration - - Weight 71.8 kg (158 lb 3.2 oz) 10/18/2015 1:13 P M EDT Height 151.1 cm (4' 11.5 ) 10/18/2015 1:13 PM ED T Body Mass Index 31.42 10/18/2015 1:13 PM EDT Plan of Treatment Health Maintenance Due Date Last Done Comments ANNUAL PHYSICAL 1955 DXA SCAN 1955 HEPATITIS C SCREENING 1955 LIPID PANEL 1953 TDAP/TD VACCINES (1 - Tdap) 1972 MAMMOGRAM 1993 COLOGUARD 1998 COLON CANCER SCREENING 5 YEAR SIGMOIDOSCOPY 1998 COLONOSCOPY 1998 [address] CANCER SCREENING 1998 CT COLONOGRAPHY 1998 FECAL OCCULT BLOOD TEST 1998 FIT Testing (1 year) 1998 Pneumococcal Vaccine 50+ (1 of 1 - PCV) 2003 ZOSTER VACCINE (1 of 2) 2003 COVID-19 Vaccine ( - 2023- season) 2023 INFLUENZA VACCINE 12/21/[address] [place] [place] [address] EMPLOYEE Care Teams Associate Editor Relationship Specialty Start Date End Date Jeanmarie Gordon MD [address] [place] [address] PCP - General Family Medicine 10/18/15
--- OUTSIDE RECORDS SUMMARY | 2024-10-10 09:09 | XMS_ITS | Clinical Summary ---
Author Organization Healthcare Address [address] [place] [address] Care Team Providers Care Vitamin Manager Name Role Phone Jeanmarie Gordon MD Primary Care Provider [phone] Brad De La Cruz MD Unavailable Allergies No known active allergies Medications aspirin 81 MG EC tablet Take 1 tablet (81 mg) by mouth 1 (one) time each day. Active levothyroxine (Synthroid, Levoxyl) 50 MCG tablet Take 1 tablet (50 mcg) by mouth 1 (one) time each day before breakfast. Active linaGLIPtin (Tradjenta) 5 MG tablet Take 1 tablet (5 mg) by mouth 1 (one) time each day. Active metFORMIN (Glucophage) 500 MG tablet Take 1 tablet (500 mg) by mouth 2 (two) times a day with meals. Active omeprazole (PriLOSEC) [address] capsule Take 1 capsule (40 mg) by mouth 1 (one) time each day. Do not crush or chew. Active alpha tocopherol (Vitamin E) 400 units capsule Take 1 capsule (400 Units) by mouth 2 (two) times a day. Active Continuous Blood Gluc Sensor (Dexcom G7 Sensor) misc 1 sensor every 10 (ten) days. 3 each 11 3 Active ALPRAZolam (Xanax) 1 MG tablet Take 1 tablet (1 mg) by mouth at night if needed for anxiety. 1 tablet 3 Active atorvastatin (Lipitor) 80 MG tablet Take 1 tablet (80 mg) by mouth every night. 30 tablet 3 3 Active ferrous sulfate 324 MG tablet delayed-release Take 1 tablet (324 mg) by mouth 1 (one) time each day with breakfast. Do not crush, chew, or split. 30 tablet 3 Active furosemide (Lasix) 20 MG tablet Take 1 tablet (20 mg) by mouth 1 (one) time each day for 7 days. 7 tablet 3 Active Insulin Lispro (Admelog, HumaLOG) 100 UNIT/ML injection vial Inject 0.04 mL (4 Units) under the skin 3 (three) times a day with meals. 10 mL 3 3 Active insulin lispro (Admelog) 100 UNIT/ML injection Inject 0-5 Units under the skin 3 (three) times a day with meals. BG<150: None BG 150-199: 1 units BG 200-249: 2 units BG 250-299: 3 units BG 300-349: 4 units BG 350-399: 5 units BG>399: call provider 10 mL 2 3 Active metoprolol tartrate (Lopressor) 25 MG tablet Take 1 tablet (25 mg) by mouth 2 (two) times a day. 60 tablet 3 3 Active budesonide-formo terol (Symbicort) 160-4.5 MCG/ACT inhaler Inhale 2 puffs 2 (two) times a day. Rinse mouth with water after use to reduce aftertaste and incidence of candidiasis. Do not swallow. 6 g 3 Active Tiotropium [place] Monohydrate (Spiriva Respimat) 2.5 MCG/ACT inhaler Inhale 2 puffs 1 (one) time each day. 4 g 3 Active Blood Glucose Monitoring Suppl kit 1 kit 4 (four) times a day. 1 kit 3 Active torsemide (Demadex) 10 MG tablet Take 1 tablet (10 mg) by mouth 2 (two) times a day. Active methocarbamol (Robaxin) 500 MG tablet Take 1 tablet (500 mg) by mouth 3 (three) times a day for 10 days. 30 tablet 3 Active Active Problems Problem Noted Date Diagnosed Date Family history of premature CAD 11/19/2022 Acute postoperative anemia due to expected blood loss 10/24/2022 Grade II diastolic dysfunction 10/20/2022 Mild tricuspid regurgitation 10/20/2022 Aortic valve sclerosis 10/20/2022 Tobacco abuse, in remission 10/20/2022 Multiple vessel coronary artery disease 10/19/19 Paroxysmal atrial fibrillation 10/18/2022 1st degree AV block 10/18/2022 Type 2 diabetes mellitus, wi thout long-term current use of insulin 10/18/2022 Primary hypertension 10/18/2022 Other hyperlipidemia 10/18/2022 Thrombocytopenia 10/18/2022 Renal insufficiency 10/18/2022 COPD (chronic obstructive pulmonary disease) Peripheral artery disease 10/18/2022 Acquired hypothyroidism 10/18/2022 Gastroesophageal reflux disease without esophagi tis 10/18/2022 BMI 29.0-29.9,adult 10/18/2022 Immunizations Immunization Administration Dates Next Due Moderna COVID-19 Vaccine (Net Developer Programmer) 12+ years ,04/11/2020 Family History Medical History Relation Name Comments Heart disease Brother 1 Heart disease Brother 2 Heart disease Father Heart disease Mother Relation Name Status Comments Brother 1 Brother 2 Father Mother Social History Tobacco Use Types Packs/Day Years Used Date Smoking Tobacco: Former Cigarettes 1 - 2018 Smokeless Tobacco: Never Tobacco Cessation:Counseling Given: Not Answered Alcohol Use Standard Drinks/Week Comments Never 0 [...] drink first t tony in the morning (EYE-PREVENTIVE MEDICINE SPECIALIST) to steady your nerves or to get rid of a hangover? 0 10/18/2022 CAGE Questionnaire Score 0 023 Comments No Sex and Gender Information Value Date Recorded Sex Assigned at Not on file Legal Sex Female 12:42 PM EDT Gender Identity Not on file Sexual Orientation Not on file Occupation Industry Job Start Date Job End Date [employer] Not on file Not on file Not on file Last Filed Vital Signs Vital Sign Reading Time Taken Comments Blood Pressure 128/64 11/19/2022 9:21 AM EDT Pulse 85 11/19/2022 9:21 AM EDT Temperature 36.6 C (97.9 F) 10/30/2022 11:55 AM EDT Respiratory Rate 17 10/30/2022 11:55 AM EDT Oxygen Saturation 92% 11/19/2022 9:21 AM EDT Inhaled Oxygen Concentration - - Weight 67.8 kg (149 lb 6.4 oz) 11/19/2022 9:21 A M EDT Height 152.4 cm (5') 10/24/2022 6:07 AM EDT Body Mass Index 29.18 10/24/2022 6:07 AM EDT Plan of Treatment Health Maintenance Due Date Last Done Comments [facility]-Bone Density Scan 1953 [facility]-Depression Screening 1953 [facility]-Hepatitis C Screening 1953 [facility]-Medicare Annual Wellness (AWV) 1953 [facility]-Infant/Child/Adol SDOH Screenings 1953 Diabetes: Dental Exam 1963 [facility]- SDOH Screenings 1971 [facility]-Adult SDOH Screenings 1971 [facility]-DTaP,Tdap,and Td Vaccine s (1 - Tdap) 1972 [facility]-Pneumococcal Vaccine: 50 + Years (1 of 2 - PCV) 1972 CT Colonography 1998 Colonoscopy 1998 FIT-DNA 1998 FIT 1998 FOBT 1998 Sigmoidoscopy 1998 [facility]-Colorectal Cancer Screening 1998 [facility]-Breast Cancer Screening 2003 [facility]-Zoster Vaccines (1 of 2) 2003 [facility]-RSV Vaccine: 60+ Years o r (1 - Risk 60-74 years 1-dose series) 2013 [facility]IC-KVAYT-27 Vaccine (3 - Moderna risk series) 06/15/2020 05/18/2020, 04/11/2020 [facility]-Diabetes: Hemoglobin A1C 01/16/2023 10/17/2022 [facility]-Influenza Vaccine (#1) 2024 [facility]-Obesity Intervention Completed 11/19/2022 HPV Vaccines Aged Out No longer eligi ble based on patient's age to complete this topic [facility]-HIB Vaccines Aged Out No longer e ligible based on patient's age to complete this topic [facility]-Hepatitis A Vaccines Aged Out No longer eligible based on patient's age to complete this topic [facility]-IPV Vaccines Aged Out No longer e ligible based on patient's age to complete this topic [facility]-Rotavirus Vaccines Aged Out No lo nger eligible based on patient's age to complete this topic Medical Devices Implanted Type 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 Device Identifier Shelf Expiration Date Model / Serial / Lot Screw Screw N/A: Neck Atriclip Flex V 40mm - [id number] Implanted:Qty: 1 on 10/24/2022 by Kiana Pinedo MD at [facility] N/A: [id number] 07/21/2025 [id number] / / [id number] Procedures Procedure Name Priority Date/Time Associated Diagnosis Comments HEMOGLOBIN A1C Add-On 10/17/2022 10:12 PM EDT from Last 3 Months or Most Recently Relevant to Health Maintenance Results * (ABNORMAL) Hemoglobin A1c (10/17/2022 10:12 PM EDT) Hemoglobin A1c 9.3(H) <5.7 % 10/18/2022 9:51 AM EDT [facility] Blood Venous blood specimen / Unknown Venipuncture / Unknown 10/17/2022 10:12 PM EDT 10/17/2022 10:23 PM EDT Narrative [facility] - 10/18/2022 9:51 AM EDT HA1C Interpretive Data: Diagnosis of Diabetes: Diabetic > or = 6.5% Pre-diabetic 5.7 to 6.4% Non-diabetic < or = 5.6% Glycemic Targets for Type I and Type II Diabetics: Non- Adults <7.0% Adults <6.0% Children and Adolescents <7.5% Source: [place] [employer]. Standards of medical care in diabetes,2017. Diabetes Care.2017:40 (suppl 1):S1-S135. HbA1c assay performed by an ion-exchange chromatography method that is certified traceable to the DCCT. us [facility] BLOOD ORDERABLES Final R esult [facility] [address] [place] [address] from Last 3 Months or Most Recently Relevant to Health Maintenance Insurance MEDICARE Advance Directives * Full Code (Latest Code Status on File) Date Activated Date Inactivated Comments 10/24/2022 12:50 PM 10/30/2022 6:31 PM Question Answer Comments Patient has decision-making capacity? Yes * Full Code Date Activated Date Inactivated Comments 10/17/2022 8:55 PM 10/24/2022 12:44 PM Question Answer Comments Patient has decision-making capacity? Yes Care Teams Vitamin Manager Relationship Specialty Start Date End Date Jeanmarie Gordon MD [address] [place] [id number] PCP - General 10/18/21 Brad De La Cruz MD [address] [facility] [address] [place] [phone] Referring Physician Cardiology 10/22/22
--- OUTSIDE RECORDS SUMMARY | 2024-10-10 09:09 | XMS_ITS | Continuity of Care Document ---
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 Plan of Treatment Reminders Order Date Submit Date Provider Last Modified By Organization Details Last Modified Time Details Appointments None record ed. Lab None record ed. Referral None record ed. Procedures None record ed. Surgeries None record ed. Imaging XR, foot 025 08/20/19 25 [email or web address] [facility], [address] [place] [address], [phone], 09:24:52 Medication Orders None record ed. Patient TargetsNo targets recorded. Patient InstructionsNo instructions recorded. Reason for Referral None Reported. Results Created Date Observation Date Name Description Value Unit Range Abnormal Flag Note LastModifiedBy Organization Detail LastModifiedTime 08/19/19 25 XR, foot No observ ation record ed. CRYSTAL Long [address], [address], 08/19/2024 09:41:25 08/20/19 25 XR, foot No observ ation record ed. [email or web address] [address], [address], 08/19/2024 08:56:54 Result Notes None recorded. Problems Name Problem SNOMED Code Status Onset Date Resolution Date Notes Provider Name and Address Organization Details Recorded Time Injury of left foot 8761856098332 9108 Active 2024 BALA Weaver [facility] [place] 5 08:12:48 Closed fracture of third metatarsal bone 295237345 Active 2024 BALA Weaver [facility] [place] 5 08:58:01 Problem Notes None recorded. Medical [...] dose 04/11/2020 completed BALA Tracy [facility] [place] 08/19/2024 08:34:27 COVID-19, mRNA, LNP-S, PF, 100 mcg/0.5mL dose or 50 mcg/0.25mL dose 05/18/2020 completed BALA Tracy - [facility] [place] 08/19/2024 08:34:27 Past Encounters Encounter ID Performer Location Encounter Start Date Encounter Closed Date Diagnosis/Indication Diagnosis SNOMED-CT Code Diagnosis ICD10 Code Diagnosis Note [id number] EARL GIRARD NP [facility] [address] [facility] [place] [address] 08/19/2024 08:27:15 08/19/2024 09:38:55 Closed fracture of third metatarsal bone 619487013 S92.335D [id number] Missy Hermosillo NP [facility] [address] [place] [address] 08/19/2024 07:57:34 08/19/2024 08:13:10 Closed fracture of third metatarsal bone [id number] S92.335D Health Concerns Section Related Observation LastModified by Organization Detai ls LastModified Time None Recorded Concern Status LastModified by Organization Details LastModified Time None Recorded Payers Encounter Date Sequence Insurance Name Policy Number Policy Richardson Covered Member ID Richardson Member ID Guarantor Name 08/19/2024 1 [employer] (MEDICARE REPLACEMENT/A DVANTAGE - PPO) Roxann Medeiros [id number] Roxann Medeiros Notes Date Note Type Note Provider Name and Address Organization Details Recorded Time 08/19/2024 text/html Patient is here today for recheck xrays of Closed nondisplaced fracture of third metatarsal bone of left foot. Patient stated about a week ago she fell [place] [facility], the walking boot was tripping her. So she has been out of the boot for a week. Denies any pain. Wearing regular shoe. Pt stated she is doing well. Xrays taken today at [facility]. EARL GIRARD NP [address] [facility],[address], [place], [address], [facility] [place] [facility] [place] 08/19/2024 09:41:48 OBGyn Episode No OBEpisode recorded.
--- OUTSIDE RECORDS SUMMARY | 2024-10-10 09:09 | XMS_ITS ---
Author Organization Unknown Medications Medication Instructions Effective Dates (start - stop) Status amoxicillin 500 MG / clavula kanwal 125 MG Oral Tablet 4921-02-26I30:00:00.000+00:0 0 - Completed amoxicillin 875 MG / clavula kanwal 125 MG Oral Tablet 1762-00-90D68:00:00.000+00:0 0 - Completed albuterol 0.833 MG/ML / ipratropium bromide 0.167 MG/ML Inhalation Solution 7958-95-31T80:00:00.000+00:0 0 - Completed 24 HR metoprolol succinate 5 0 MG Extended Release Oral Tablet 1650-62-99Q91:00:00.000+0 0:0 0 - Completed 24 HR metoprolol succinate 5 0 MG Extended Release Oral Tablet 8430-60-57Q26:00:00.000+0 0:0 0 - Completed 24 HR metoprolol succinate 5 0 MG Extended Release Oral Tablet 5688-45-33O83:00:00.000+0 0:0 0 - Completed 24 HR metoprolol succinate 5 0 MG Extended Release Oral Tablet 4744-07-44V78:00:00.000+0 0:0 0 - Completed 24 HR metoprolol succinate 5 0 MG Extended Release Oral Tablet 7484-79-85T40:00:00.000+0 0:0 0 - Completed 24 HR metoprolol succinate 5 0 MG Extended Release Oral Tablet 9871-41-96T46:00:00.000+0 0:0 0 - Completed 24 HR metoprolol succinate 5 0 MG Extended Release Oral Tablet 3686-66-78V94:00:00.000+0 0:0 0 - Completed 24 HR metoprolol succinate 5 0 MG Extended Release Oral Tablet 7751-60-30S57:00:00.000+0 0:0 0 - Completed 24 HR metoprolol succinate 5 0 MG Extended Release Oral Tablet 6499-31-59E93:00:00.000+0 0:0 0 - Completed amiodarone hydrochloride 200 MG Oral Tablet 1267-71-03U13:00:00.000+00:0 0 - Completed alprazolam 1 MG Oral Tablet 2021:00:00.000+00:0 0 - Completed pantoprazole 40 MG Delayed R elease Oral Tablet 1168-59-04F00:00:00.000+00:0 0 - Completed clopidogrel 75 MG Oral Tablet 12-08-29:00:00.000+00:0 0 - Completed clopidogrel 75 MG Oral Tablet 12-08-01:00:00.000+00:0 0 - Completed clopidogrel 75 MG Oral Tablet 13-07-04:00:00.000+00:0 0 - Completed clopidogrel 75 MG Oral Tablet 12-06-06:00:00.000+00:0 0 - Completed clopidogrel 75 MG Oral Tablet 15-05-06:00:00.000+00:0 0 - Completed clopidogrel 75 MG Oral Tablet 14-04-08:00:00.000+00:0 0 - Completed clopidogrel 75 MG Oral Tablet 13-03-08:00:00.000+00:0 0 - Completed clopidogrel 75 MG Oral Tablet 12-02-08:00:00.000+00:0 0 - Completed clopidogrel 75 MG Oral Tablet 11-01-10:00:00.000+00:0 0 - Completed clopidogrel 75 MG Oral Tablet 12-12-13:00:00.000+00:0 0 - Completed clopidogrel 75 MG Oral Tablet 11-11-21:00:00.000+00:0 0 - Completed torsemide 10 MG Oral Tablet 2021:00:00.000+00:0 0 - Completed torsemide 10 MG Oral Tablet 2021:00:00.000+00:0 0 - Completed torsemide 10 MG Oral Tablet 2021:00:00.000+00:0 0 - Completed torsemide 10 MG Oral Tablet 2021:00:00.000+00:0 0 - Completed torsemide 10 MG Oral Tablet 2021:00:00.000+00:0 0 - Completed 24 HR glipizide 10 MG Extend ed Release Oral Tablet 2347-54-21A11:00:00.000+00:0 0 - Completed 24 HR glipizide 10 MG Extend ed Release Oral Tablet 0879-35-84E78:00:00.000+00:0 0 - Completed 24 HR glipizide 10 MG Extend ed Release Oral Tablet 2701-18-43Z16:00:00.000+00:0 0 - Completed 24 HR glipizide 10 MG Extend ed Release Oral Tablet 9962-18-53W57:00:00.000+00:0 0 - Completed 24 HR glipizide 10 MG Extend ed Release Oral Tablet 4388-91-29N49:00:00.000+00:0 0 - Completed 24 HR glipizide 10 MG Extend ed Release Oral Tablet 9220-94-09B55:00:00.000+00:0 0 - Completed 24 HR glipizide 10 MG Extend ed Release Oral Tablet 6324-95-97K37:00:00.000+00:0 0 - Completed 24 HR glipizide 10 MG Extend ed Release Oral Tablet 2143-90-80G02:00:00.000+00:0 0 - Completed 24 HR glipizide 10 MG Extend ed Release Oral Tablet 6352-12-92U24:00:00.000+00:0 0 - Completed 24 HR glipizide 10 MG Extend ed Release Oral Tablet 9316-57-90C17:00:00.000+00:0 0 - Completed 24 HR isosorbide mononitrate 60 MG Extended Release Oral Tablet 8819-83-80C34:00:00.000+0 0:0 0 - Completed spironolactone 50 MG Oral Tablet 7349-91-66U89:00:00.000+00:0 0 - Completed spironolactone 50 MG Oral Tablet 2015-72-68V70:00:00.000+00:0 0 - Completed spironolactone 50 MG Oral Tablet 8092-14-53V68:00:00.000+00:0 0 - Completed spironolactone 50 MG Oral Tablet 3047-65-83W77:00:00.000+00:0 0 - Completed spironolactone 50 MG Oral Tablet 2161-52-27E58:00:00.000+00:0 0 - Completed 24 HR glipizide 10 MG Extend ed Release Oral Tablet 1633-49-19V69:00:00.000+00:0 0 - Completed 24 HR glipizide 10 MG Extend ed Release Oral Tablet 5456-46-17J37:00:00.000+00:0 0 - Completed 24 HR diltiazem hydrochlorid e 240 MG Extended Release Oral Capsule 6638-25-25T24:00:00.0 00+00:0 0 - Completed 24 HR diltiazem hydrochlorid e 240 MG Extended Release Oral Capsule 7320-05-21H23:00:00.0 00+00:0 0 - Completed 24 HR diltiazem hydrochlorid e 240 MG Extended Release Oral Capsule 8950-08-64D74:00:00.0 00+00:0 0 - Completed 24 HR diltiazem hydrochlorid e 240 MG Extended Release Oral Capsule 1118-27-34W19:00:00.0 00+00:0 0 - Completed 24 HR diltiazem hydrochlorid e 240 MG Extended Release Oral Capsule 5241-96-68P34:00:00.0 00+00:0 0 - Completed 24 HR diltiazem hydrochlorid e 240 MG Extended Release Oral Capsule 3827-14-03F58:00:00.0 00+00:0 0 - Completed 24 HR diltiazem hydrochlorid e 240 MG Extended Release Oral Capsule 2486-29-94B99:00:00.0 00+00:0 0 - Completed 24 HR isosorbide mononitrate 60 MG Extended Release Oral Tablet 3080-05-38O20:00:00.000+0 0:0 0 - Completed 24 HR isosorbide mononitrate 60 MG Extended Release Oral Tablet 3427-24-23Y19:00:00.000+0 0:0 0 - Completed 24 HR isosorbide mononitrate 60 MG Extended Release Oral Tablet 7161-22-62U55:00:00.000+0 0:0 0 - Completed 24 HR isosorbide mononitrate 60 MG Extended Release Oral Tablet 1333-33-52S44:00:00.000+0 0:0 0 - Completed 24 HR isosorbide mononitrate 60 MG Extended Release Oral Tablet 6609-81-10S75:00:00.000+0 0:0 0 - Completed 24 HR isosorbide mononitrate 60 MG Extended Release Oral Tablet 2265-21-39S05:00:00.000+0 0:0 0 - Completed 24 HR isosorbide mononitrate 60 MG Extended Release Oral Tablet 3201-01-74Z02:00:00.000+0 0:0 0 - Completed 24 HR isosorbide mononitrate 60 MG Extended Release Oral Tablet 2487-48-91F33:00:00.000+0 0:0 0 - Completed 24 HR isosorbide mononitrate 60 MG Extended Release Oral Tablet 7924-51-03T43:00:00.000+0 0:0 0 - Completed 24 HR isosorbide mononitrate 30 MG Extended Release Oral Tablet 1401-20-16J80:00:00.000+0 0:0 0 - Completed 24 HR isosorbide mononitrate 30 MG Extended Release Oral Tablet 6256-19-60G06:00:00.000+0 0:0 0 - Completed rivaroxaban 15 MG Oral Table t [Xarelto] 1992-14-84H37:00:00.000+00:0 0 - Completed rivaroxaban 15 MG Oral Table t [Xarelto] 2014-00-45M55:00:00.000+00:0 0 - Completed clindamycin 150 MG Oral Capsule 6497-15-04N44:00:00.000+00:0 0 - Completed losartan potassium 50 MG Ora l Tablet 1362-31-94R19:00:00.000+00:0 0 - Completed losartan potassium 50 MG Ora l Tablet 0176-43-25I79:00:00.000+00:0 0 - Completed 24 HR diltiazem hydrochlorid e 240 MG Extended Release Oral Capsule 0389-82-65C49:00:00.0 00+00:0 0 - Completed spironolactone 50 MG Oral Tablet 9514-84-81Q93:00:00.000+00:0 0 - Completed spironolactone 50 MG Oral Tablet 3368-12-86E18:00:00.000+00:0 0 - Completed spironolactone 50 MG Oral Tablet 2722-28-15U94:00:00.000+00:0 0 - Completed spironolactone 50 MG Oral Tablet 0754-28-94J34:00:00.000+00:0 0 - Completed spironolactone 50 MG Oral Tablet 6705-13-03W82:00:00.000+00:0 0 - Completed spironolactone 50 MG Oral Tablet 9858-28-59U09:00:00.000+00:0 0 - Completed alprazolam 1 MG Oral Tablet 2022:00:00.000+00:0 0 - Completed alprazolam 1 MG Oral Tablet 2022:00:00.000+00:0 0 - Completed empagliflozin 25 MG Oral Tab let [Jardiance] 6208-72-06O13:00:00.000+00:0 0 - Completed linagliptin 5 MG Oral Tablet [Tradjenta] 4951-46-60D80:00:00.000+00:0 0 - Completed linagliptin 5 MG Oral Tablet [Tradjenta] 0607-52-19Q39:00:00.000+00:0 0 - Completed linagliptin 5 MG Oral Tablet [Tradjenta] 6240-59-13U28:00:00.000+00:0 0 - Completed linagliptin 5 MG Oral Tablet [Tradjenta] 6791-17-62B62:00:00.000+00:0 0 - Completed linagliptin 5 MG Oral Tablet [Tradjenta] 9224-72-76O87:00:00.000+00:0 0 - Completed linagliptin 5 MG Oral Tablet [Tradjenta] 3544-40-43C01:00:00.000+00:0 0 - Completed linagliptin 5 MG Oral Tablet [Tradjenta] 6166-47-42H56:00:00.000+00:0 0 - Completed levothyroxine sodium 0.05 MG Oral Tablet 0193-36-67F52:00:00.000+00:0 0 - Completed levothyroxine sodium 0.05 MG Oral Tablet 9429-55-74L78:00:00.000+00:0 0 - Completed levothyroxine sodium 0.05 MG Oral Tablet 8142-34-99H38:00:00.000+00:0 0 - Completed levothyroxine sodium 0.05 MG Oral Tablet 9652-23-82F34:00:00.000+00:0 0 - Completed levothyroxine sodium 0.05 MG Oral Tablet 8963-53-31Q61:00:00.000+00:0 0 - Completed levothyroxine sodium 0.05 MG Oral Tablet 2097-44-79Z96:00:00.000+00:0 0 - Completed levothyroxine sodium 0.05 MG Oral Tablet 8801-33-52D03:00:00.000+00:0 0 - Completed levothyroxine sodium 0.05 MG Oral Tablet 1254-41-12C26:00:00.000+00:0 0 - Completed levothyroxine sodium 0.05 MG Oral Tablet 8023-69-21A84:00:00.000+00:0 0 - Completed levothyroxine sodium 0.05 MG Oral Tablet 6359-89-59F59:00:00.000+00:0 0 - Completed levothyroxine sodium 0.05 MG Oral Tablet 2288-10-99Y01:00:00.000+00:0 0 - Completed levothyroxine sodium 0.05 MG Oral Tablet 2990-81-43S09:00:00.000+00:0 0 - Completed alprazolam 1 MG Oral Tablet 2022:00:00.000+00:0 0 - Completed alprazolam 1 MG Oral Tablet 2022:00:00.000+00:0 0 - Completed alprazolam 1 MG Oral Tablet 2022:00:00.000+00:0 0 - Completed alprazolam 1 MG Oral Tablet 2022:00:00.000+00:0 0 - Completed alprazolam 1 MG Oral Tablet 2021:00:00.000+00:0 0 - Completed sitagliptin 100 MG Oral Tabl et [Brendanliz] 4828-32-21H36:00:00.000+00:0 0 - Completed sitagliptin 100 MG Oral Tabl et [Brendanliz] 3702-19-99A03:00:00.000+00:0 0 - Completed sitagliptin 100 MG Oral Tabl et [Brendanliz] 2417-11-66F08:00:00.000+00:0 0 - Completed sitagliptin 100 MG Oral Tabl et [Brendanliz] 6258-52-89J51:00:00.000+00:0 0 - Completed sitagliptin 100 MG Oral Tabl et [Brendanliz] 2989-41-36R45:00:00.000+00:0 0 - Completed metformin hydrochloride 500 MG Oral Tablet 5282-84-20M20:00:00.000+00:0 0 - Completed metformin hydrochloride 500 MG Oral Tablet 5799-87-84Y90:00:00.000+00:0 0 - Completed metformin hydrochloride 500 MG Oral Tablet 5731-50-49P61:00:00.000+00:0 0 - Completed metformin hydrochloride 500 MG Oral Tablet 5843-45-05G10:00:00.000+00:0 0 - Completed metformin hydrochloride 500 MG Oral Tablet 7099-93-91E98:00:00.000+00:0 0 - Completed metformin hydrochloride 500 MG Oral Tablet 4137-62-91P65:00:00.000+00:0 0 - Completed metformin hydrochloride 500 MG Oral Tablet 6709-18-00N21:00:00.000+00:0 0 - Completed metformin hydrochloride 500 MG Oral Tablet 6887-62-19U01:00:00.000+00:0 0 - Completed metformin hydrochloride 500 MG Oral Tablet 8012-80-08M80:00:00.000+00:0 0 - Completed metformin hydrochloride 500 MG Oral Tablet 5515-51-18T81:00:00.000+00:0 0 - Completed metformin hydrochloride 500 MG Oral Tablet 2265-40-38T10:00:00.000+00:0 0 - Completed metformin hydrochloride 500 MG Oral Tablet 6915-37-09R54:00:00.000+00:0 0 - Completed omeprazole 40 MG Delayed Rel ease Oral Capsule 5100-09-22A02:00:00.000+00:0 0 - Completed omeprazole 40 MG Delayed Rel ease Oral Capsule 1953I05:00:00.000+00:0 0 - Completed omeprazole 40 MG Delayed Rel ease Oral Capsule 6088-10-67C60:00:00.000+00:0 0 - Completed omeprazole 40 MG Delayed Rel ease Oral Capsule 2330-07-61A57:00:00.000+00:0 0 - Completed 24 HR metoprolol succinate 5 0 MG Extended Release Oral Tablet 3017-74-20H84:00:00.000+0 0:0 0 - Completed 24 HR metoprolol succinate 5 0 MG Extended Release Oral Tablet 0627-64-42G66:00:00.000+0 0:0 0 - Completed Patient Care team information Name Category Status Period Participants - - Proposed period not known -
--- OUTSIDE RECORDS SUMMARY | 2024-10-10 09:09 | XMS_ITS | Continuity of Care Document ---
Author Organization [facility] Address [address] [place] [address] Assessment No assessment recorded. Plan of Treatment Reminders Order Date Submit Date Provider Last Modified By Organization Details Last Modified Time Details Appointments Diabetic F/U 2024 09:00A M Blaire Arzate APRN Not available Not available Not available Lab None recorded. Referral None recorded. Procedures None recorded. Surgeries None recorded. Imaging None recorded. Medication Orders metformin ER 500 mg tablet,ex tended release 24 hr 2024 025 [facility], [address], [place], [address], 09/14/2024 13:46:42 Ozempic 1 mg/dose (4 mg/3 mL) subcutane ous pen injector 2024 025 [facility], [address], [place], [address], 09/14/2024 13:46:42 Patient Targets Encounter Date Encounter Id Patient Goals Patient Target Last Modified By Organization Details Last Modified Time 09/14/2024 [id number] Goal is BP <140/80. Lose 15 lbs., increase water and exercise as tolerated. epi Not available 09/14/2024 13:48:17 Patient Instructions Encounter Date Encounter Id Patient Instructions Last Modified By Organization Details Last Modified Time 09/14/2024 [id number] Call if any questions or if symptoms worsen. epi Not available 09/14/2024 13:52:50 Reason for Referral None Reported. Problems Name Problem SNOMED Code Status Onset Date Resolution Date Notes Provider Name and Address Organization Details Recorded Time Diabetes mellitus 91561174 Active 2023 Steve Appiah null, [place] - [facility] 4 10:08:01 Hypothyroidism 23706905 Active 2023 Steve Felixurn null, [place] - [facility] 4 10:08:06 Hypertensive disorder 88488021 Active 2023 Steve Appiah null, [place] - [facility] 4 10:08:14 Gastroesophage al reflux disease 732298806 Active 2023 Steve Felixurn null, [place] - [facility] 4 10:09:28 Hyperlipidemia 68658532 Active 2023 Steve Appiah null[place] - [facility] 4 10:09:33 Primary hypothyroidism 34475647 Active 2024 Blaire Arzate, [employer] [address], [place], [address], [place] - [facility] 5 13:30:32 Essential hypertension 17101591 Active 2024 Blaire Isaac Huey, [employer] [address], [place], [address], [place] - [facility] 5 16:27:10 Platelet count below reference range 707592173 Active 2024 Blaire Arzate, [employer] [address], [place], [address], [place] - [facility] 5 12:50:21 Serum creatinine above reference range 225668888 Active 2024 Blaire Isaac Huey, [employer] [address], [place], [address], [place] - [facility] 5 12:51:04 Postmenopausal osteoporosis 085130957 Active 2024 Blaire Arzate, [employer] [address], [place], [address], [place] - [facility] 5 09:12:35 Hypokalemia 74494767 Active 2024 Blaire Arzate, [employer] [address], [place], [address], [place] - [facility] 11:06:16 Problem Notes None recorded. Procedures Surgical History Date Name Laterality Status Provider Name and Address Organization Details Recorded Time 08/23/19 Advance Care Planning completed Brielle Castañeda [place] - [facility] 08/22/2024 08:54:42 08/23/19 Functional Status Assessed completed Brielle MCKENNA - [facility] 08/22/2024 08:54:42 open heart surgery completed Lien Appiah [place] - [facility] 11/26/2023 10:10:05 Cardiac Surgery [facility] - [facility] 11/26/2023 10:10:23 cholecystectomy completed [facility]NA - [facility] 11/26/2023 10:10:40 Carpal tunnel surgery completed Steve [facility]CKENNA - [facility] 11/26/2023 10:10:45 Imaging Results None recorded. Procedure Notes None recorded. Medical Equipment None Reported. Allergies No known drug allergies Medications Name Sig Start Date Stop Date Status Note LastModified by Organization Details LastModified Time Prescript ion - Renewal 11/25 completed Not Available Not Available Not Available losartan 50 mg tablet TAKE ONE (1) TABLET BY MOUTH TWICE DAILY FOR HIGH BLOOD PRESSURE 11/25 completed Not Available Not Available Not Available methocarb quincy 500 mg tablet TAKE 1 TABLET BY MOUTH THREE (3) TIMES DAILY FOR 10 DAYS 11/25 completed Not Available Not Available Not Available metformin 500 mg tablet TAKE 1 TABLET TWICE DAILY 11/25 completed Not Available Not Available Not Available acetamino phen 325 mg tablet TAKE 2 TABLETS EVERY FOUR (4) HOURS IF NEEDED FOR PAIN. 11/25 completed Not Available Not Available Not Available prednison e 10 mg tablet TAKE ONE (1) TABLET BY MOUTH DAILY 11/25 completed Not Available Not Available Not Available trazodone 50 mg tablet TAKE 1 TABLET BY MOUTH EVERY NIGHT AT BEDTIME active Not Available Not Available No t Available diltiazem ER (XR/XT) 240 mg capsule,e xtended release 24 hr, controlle d 1 po qD 11/25 completed Diltiaze m HCl Oral Capsule, Degradab le Cnt Release 240 mg;Recor ded Status: Recorded on: 12/25/19 08 10:03PM; User: system Not Available Not Available Not Available aspirin 325 mg tablet 1 po qD 2006 active Aspirin Oral Tablet 325 mg;Recor ded Status: Recorded on: 12/25/19 08 10:02PM; User: system Not Available Not Available Not Available alprazola m 1 mg tablet TAKE 1 TABLET BY MOUTH THREE (3) TIMES DAILY active Not Available Not Available No t Available metoprolo l succinate ER 50 mg tablet,ex tended release 24 hr TAKE ONE (1) TABLET BY MOUTH ONCE DAILY FOR HIGH BLOOD PRESSURE 07/04 completed Not Available Not Available Not Available glipizide ER 10 mg tablet, extended release 24 hr TAKE 1 TABLET BY MOUTH ONCE DAILY active Not Available Not Available No t Available isosorbid e mononitra te ER 30 mg tablet,ex tended release 24 hr TAKE 1 TABLET BY MOUTH ONCE DAILY 07/04 completed Not Available Not Available Not Available torsemide 10 mg tablet TAKE TWO (2) TABLETS BY MOUTH ONCE DAILY active Not Available Not Available No t Available valsartan 80 mg tablet TAKE 1 TABLET BY MOUTH ONCE DAILY active Not Available Not Available No t Available potassium chloride ER 10 mEq tablet,ex tended release Take 1 tablet every day by oral route for 14 days. 09/14 completed Not Available Not Available Not Available clopidogr el 75 mg tablet TAKE 1 TABLET BY MOUTH EVERY DAY active Not Available Not Available No t Available omeprazol e 40 mg capsule,d elayed release TAKE 1 CAPSULE BY MOUTH EVERY DAY active Not Available Not Available No t Available tramadol 50 mg tablet TAKE 1 TABLET BY MOUTH TWICE DAILY NEEDED active Not Available Not Available No t Available levothyro xine 75 mcg tablet Take 1 tablet every day by oral route in the morning. 2024 active Not Available Not Available Not Avai lable baclofen 10 mg tablet TAKE ONE (1) TABLET BY MOUTH THREE TIMES DAILY NEEDED 11/25 completed Not Available Not Available Not Available levothyro xine 50 mcg tablet TAKE ONE (1) TABLET BY MOUTH EVERY DAY IN THE MORNING. 10/07 completed Not Available Not Available Not Available metformin 1,000 mg tablet TAKE ONE (1) TABLET BY MOUTH TWO TIMES DAILY 07/04 completed Not Available Not Available Not Available diclofena c sodium 75 mg tablet,de layed release TAKE ONE (1) TABLET BY MOUTH TWO TIMES DAILY 11/25 completed Not Available Not Available Not Available metoprolo l succinate ER 25 mg tablet,ex tended release 24 hr TAKE 1 TABLET BY MOUTH ONCE DAILY active Not Available Not Available No t Available losartan 100 mg tablet Take 1 tablet every day by oral route. 2024 active Not Available Not Available Not Avai lable metformin ER 500 mg tablet,ex tended release 24 hr TAKE 1 TABLET BY MOUTH TWICE DAILY active Not Available Not Available No t Available spironola ctone 50 mg tablet 1 po qD 11/25 completed Spironol actone Oral Tablet 50 mg;Recor ded Status: Recorded on: 12/25/19 08 10:03PM; User: system Not Available Not Available Not Available amoxicill in 500 mg-potass ium clavulana te 125 mg tablet TAKE ONE (1) TABLET BY MOUTH TWO TIMES DAILY 07/04 completed Not Available Not Available Not Available metoprolo l tartrate 25 mg tablet TAKE 1 TABLET BY MOUTH TWICE DAILY 11/25 completed Not Available Not Available Not Available FeroSul 325 mg (65 mg iron) tablet TAKE 1 TABLET BY MOUTH ONCE DAILY active Not Available Not Available No t Available vitamin E (dl, acetate) 180 mg (400 unit) capsule TAKE TWO (2) CAPSULE( S) BY MOUTH DAILY active Not Available Not Available No t Available Tradjenta 5 mg tablet TAKE 1 TABLET BY MOUTH EVERY DAY 11/25 completed Not Available Not Available Not Available Ozempic 1 mg/dose (4 mg/3 mL) subcutane ous pen injector INJECT ONE (1) MG EVERY WEEK SUBCUTAN EOUSLY active Not Available Not Available No t Available Dexcom G7 Sensor device CHANGE SENSOR EVERY 10 DAYS active Not Available Not Available No t Available Ozempic 0.25 mg or 0.5 mg (2 mg/3 mL) subcutane ous pen injector Inject 0.5 mg every week by subcutan eous route for 30 days. 07/04 completed Not Available Not Available Not Available Vitals Date Recorded Body height Body mass index (BMI) Body weight Respiratory rate Heart rate Oxygen saturation Oxygen saturation in Arterial blood by Pulse oximetry Systolic And Diastolic Provider Name and Address Organization Details Last Updated DateTime 5 154.94 cm 27.3 kg/m2 07558.0 5 g 20 /min 85 /min 94 % 94 % 147/59 mm[Hg] Brielle Castañeda [place] - [facility] 13:15:23 Social History Question Answer Notes LastModified by Organizat ion Details LastModified Time Tobacco Smoking Status Former Smoker Steve Bijal null, [place] - [facility] 11/26/2023 10:10:16 When Did You Quit Smoking? 1-5yearssinc elastcigaret te Information not available 11/26/2023 What Was The Date Of Your Most Recent Tobacco Screening? 08/22/2024 [email or web address] Information not available 08/22/2024 Has Tobacco Cessation Counseling Been Provided? Yes Information not available 11/26/2023 On What Date Was Tobacco Cessation Counseling Provided? 08/22/2024 [email or web address] Information not available 08/22/2024 Sex: Female Functional Status Question Answer Note LastModified by Organization D etails LastModified Time Do you or have you ever used any other forms of tobacco or nicotine? Yes Information not available 11/26/2023 What is your level of alcohol consumption? None Information not available 11/26/2023 Mental Status None recorded. Family History Nothing Reported. Medical History No medical history recorded. Gynecological HistoryNo gynecological history recorded. Obstetrics History GPAL:G 0 P 0 0 0 0 Immunizations Vaccine Type Date Status Note Provider Nam e and Address Organization Details Recorded Time COVID-19, mRNA, LNP-S, PF, 100 mcg/0.5mL dose or 50 mcg/0.25mL dose 04/11/2020 completed Steve Appiah null, [place] - [facility] 11/26/2023 10:02:01 COVID-19, mRNA, LNP-S, PF, 100 mcg/0.5mL dose or 50 mcg/0.25mL dose 05/18/2020 completed Steve Appiah null, [place] - [facility] 11/26/2023 10:02:01 Past Encounters Encounter ID Performer Location Encounter Start Date Encounter Closed Date Diagnosis/Indication Diagnosis SNOMED-CT Code Diagnosis ICD10 Code Diagnosis Note [id number] Blaire chavez APRN [facility] [address] [place] [address] 08/22/2024 08:48:24 08/22/2024 11:51:02 Adult health examination 634809832 Z00.00 Depression screening 171 935360 Z13.31 A depression screening was completed via a standardiz ed screening tool. 5 minutes were spent discussing depression screening results and risk factors. Examinatio n of blood pressure 666872789 Z01.30 BP 151/69, uncontroll ed - states her BP is high because her insurance would not approve portable oxygen, wears oxygen at home but cannot carry it when she leaves the house. Diet education 58281508 Z71.3 Counseling 880758513 Z71 .82 Exercise counseling . Patient encouraged to exercise 30 minutes 5 days a week. At [facility] ed risk for falls 633553507 Z91.81 STEADI FAST screening score of _6___. Advance care planning 71 5381720 Z71.89 Body mass index 25-29 - overweight 233715286 E66.3 Overweight 420783555 E66 .3 Postmenopa usal osteoporosis 010508414 M81.0 Screening mammography 24 787430 Z12.31 Diabetes mellitus 104192 09 E11.9 A1c 7.0 controlled . [id number] Blaire chavez, YANI [facility] [address] [place] [address] 09/14/2024 12:07:51 09/14/2024 14:16:05 Diabetes mellitus 92243576 E11.9 07/04/24 A1c 7.0 controlled . Health Concerns Section Related Observation LastModified by Organization Detai ls LastModified Time None Recorded Concern Status LastModified by Organization Details LastModified Time None Recorded Payers Encounter Date Sequence Insurance Name Policy Number Policy Richardson Covered Member ID Richardson Member ID Guarantor Name 09/14/2024 1 [employer] (MEDICARE REPLACEMENT/A DVANTAGE - PPO) Roxann Medeiros [id number] Roxann Medeiros Notes Date Note Type Note Provider Name and Address Organization Details Recorded Time 09/14/2024 text/html 69 y/o f present s today for diabetes follow up and medication refills and discuss side effect of Ozempic. Blaire hernandez, [employer] [address], [place], [address], [place] - [facility] 09/14/2024 13:52:55 OBGyn Episode No OBEpisode recorded.
--- OUTSIDE RECORDS SUMMARY | 2024-10-10 09:09 | XMS_ITS | Encounter Summary ---
Author Organization [facility] Address [address] [place] [address] Care Team Providers Care School Laboratory Technician Name Role Phone Unavailable Primary Care Provider Unavailabl e Reason for Referral * Radiology Services (Routine) - Authorized Specialty Diagnoses / Procedures Referred By Contac t Referred To Contact Diagnoses Visit for screening mammogram Procedures Mammo Screening (3D) Bilateral Blaire He, NOTE KEEPER [address] [address] Phone: tel: fax: Referral ID Status Reason Start Date Expiration Date V isits Requested Visits Authorized [id number] Authorized 08/22/2024 08/22/2025 1 1 Encounter Details Date Type Department Care Team (Latest Contact Info) Description 08/22/2024 Transcribe Orders Centralized Scheduling [address] [place] [address] Blaire He, NOTE KEEPER [address] [address] Visit for screening mammogram (Primary Dx) Social History Tobacco Use Types Packs/Day Years Used Date Smoking Tobacco: Never Assessed Comments Unknown Sex and Gender Information Value Date Recorded Sex Assigned at Not on file Legal Sex Female 3:29 PM EDT Gender Identity Not on file Sexual Orientation Not on file documented as of this encounter Plan of Treatment Scheduled Orders Name Type Priority Associated Diagnoses Orde r Schedule Mammo Screening (3D) Bilateral Imaging Routine Visit for screening mammogram 1 Occurrences starting 08/22/2024 until 08/22/2025 documented as of this encounter Visit Diagnoses Diagnosis Visit for screening mammogram- Primary documented in this encounter
--- OUTSIDE RECORDS SUMMARY | 2024-10-10 09:09 | XMS_ITS | Continuity of Care Document ---
Author Organization [facility] Address [address] [place] [address] Assessment Encounter Date Assessment Date Assessment LastModified by Organization Details LastModified Time 10/05/2024 10/05/2024 Overall, pt doing well at this time. Last a1c was 6.6. This has improved since previous visit. Pt is due for Diabetic labs at today's visit. Pt will need repeat A1c today. Discussed routine diabetic follow up in 3 months and pt is agreeable. Pt counseled on diet and weight management at today's visit. Pt will try to comply with ADA guidelines in regards to diet and increase daily activity as tolerated. Call or RTC sooner than follow up should any questions or concerns arise. epi Not available 10/05/2024 08:27:27 Plan of Treatment Reminders Order Date Submit Date Provider Last Modified By Organization Details Last Modified Time Details Appointments Diabet ic F/U 2024 09:00A M Blaire Arzate APRN Not available Not available Not available Lab HbA1c (hemog lobin A1c), blood 2024 0716/ 025 donna [facility], [address], [place], [address], 10/05/2024 08:28:48 Referral None record ed. Procedures None record ed. Surgeries None record ed. Imaging None record ed. Medication Orders None record ed. Patient TargetsNo targets recorded. Patient Instructions Encounter Date Encounter Id Patient Instructions Last Modified By Organization Details Last Modified Time 10/05/2024 [id number] body mass index: care instructions epi Not available 10/05/2024 08:28:48 learning about healthy weight epi Not available 10/05/2024 08:28:48 hypothyroidism: care instructions epi Not available 10/05/2024 08:28:48 Reason for Referral None Reported. Results Created Date Observation Date Name Description Value Unit Range Abnormal Flag Note LastModifiedBy Organization Detail LastModifiedTime 10/06/19 25 10/05/2024 HbA1c (hemo globi n A1c), blood HbA1C 6.6 % Not Available [facility] [address], [place], [address], 10/05/2024 08:07:35 Result Notes None recorded. Problems Name Problem SNOMED Code Status Onset Date Resolution Date Notes Provider Name and Address Organization Details Recorded Time Diabetes mellitus 44463608 Active 2023 Steve Bijal null, [place] - [facility] 4 10:08:01 Hypothyroidism 61117281 Active 2023 Steve Bijal null, [place] - [facility] 4 10:08:06 Hypertensive disorder 07419281 Active 2023 Steve [place] null, [place] - [facility] 4 10:08:14 Gastroesophage al reflux disease 352724887 Active 2023 Steve [place] null, [place] - [facility] 4 10:09:28 Hyperlipidemia 32313532 Active 2023 Steve Bijal null, [place] - [facility] 4 10:09:33 Primary hypothyroidism 47202471 Active 2024 Blaire Arzate, YANI [address], [place], [address], [place] - [facility] 5 13:30:32 Essential hypertension 26469298 Active 2024 Blaire Arzate, BOLT [employer]ER [address], [place], [address], [place] [facility] 5 16:27:10 Platelet count below reference range 641153850 Active 2024 Blaire Arzate, BOLT HEADER [address], [place], [address], [place] [facility] 5 12:50:21 Serum creatinine above reference range 847334330 Active 2024 Blaire Arzate, BOLT HEADER [address], [place], [address], [facility] - [facility] 5 12:51:04 Postmenopausal osteoporosis 840367687 Active 2024 Blaire Arzate, BOLT HEADER [address], [place], [address], [facility] - [facility] 5 09:12:35 Hypokalemia 85809813 Active 2024 Blaire Arzate, BOLT HEADER [address], [place], [address], [facility] - [facility] 5 11:06:16 Problem Notes None recorded. Procedures Surgical History Date Name Laterality Status Provider Name and Address Organization Details Recorded Time 08/23/19 Advance Care Planning completed Brielle Castañeda [facility] 08/22/2024 08:54:42 08/23/19 25 Functional Status Assessed completed Brielle Castañeda [facility] 08/22/2024 08:54:42 open heart surgery completed Lien Appiah [facility] 11/26/2023 10:10:05 Cardiac Surgery completed Steve Appiah [facility] 11/26/2023 10:10:23 cholecystectomy completed Steve Appiah [facility] 11/26/2023 10:10:40 Carpal tunnel surgery completed Steve Appiah [facility] 11/26/2023 10:10:45 Imaging Results None recorded. Procedure [...] Details Last Updated DateTime 5 154.94 cm 27.4 kg/m2 00451.8 9 g 20 /min 80 /min 91 % 91 % 156/69 mm[Hg] Brielle Weberams [place] - [facility] 5 08:18:03 Social History Question Answer Notes LastModified by Organizat ion Details LastModified Time Tobacco Smoking Status Former Smoker Steve Felixsavannah l[place], [place] - [facility] 11/26/2023 10:10:16 When Did You Quit Smoking? 1-5yearssinc elastcigaret te Information not available 11/26/2023 What Was The Date Of Your Most Recent Tobacco Screening? 08/22/2024 [email or web address] Information not available 08/22/2024 Has Tobacco Cessation Counseling Been Provided? Yes Information not available 11/26/2023 On What Date Was Tobacco Cessation Counseling Provided? 08/22/2024 [email or web address] Information not available 08/22/2024 Sex: Female Functional [...] or 50 mcg/0.25mL dose 04/11/2020 completed Steve Bijal [place], [place] - [facility] 11/26/2023 10:02:01 COVID-19, mRNA, LNP-S, PF, 100 mcg/0.5mL dose or 50 mcg/0.25mL dose 05/18/2020 completed Steve Bijal ameena, [place] - [facility] 11/26/2023 10:02:01 Past Encounters Encounter ID Performer Location Encounter Start Date Encounter Closed Date Diagnosis/Indication Diagnosis SNOMED-CT Code Diagnosis ICD10 Code Diagnosis Note [id number] Blaire chavez, [facility] [address] [place] [address] 10/05/2024 07:56:47 10/05/2024 08:49:06 Primary hypothyroidism 77504704 E03.9 07/04/24 TSH 0.379 Continue levothyrox ine 50mcg daily, I discussed thyroid disease and follow-up. The goal is to maintain TSH level between 0.5 and 2.5 mu/L and FT4 within normal range. Diabetes mellitus 650916 09 E11.9 A1c 6.6 controlled , improved. Overweight in adulthood with body mass index of 25 or more but less than 30 326283514 E66.3 Z68.27 [id number] Blaire chavez, [facility] [address] [place] [address] 09/14/2024 12:07:51 09/14/2024 14:16:05 Diabetes mellitus 62795655 E11.9 07/04/24 A1c 7.0 controlled . Health Concerns Section Related Observation LastModified by Organization Detai ls LastModified Time None Recorded Concern Status LastModified by Organization Details LastModified Time None Recorded Payers Encounter Date Sequence Insurance Name Policy Number Policy Richardson Covered Member ID Richardson Member ID Guarantor Name 10/05/2024 1 [employer] (MEDICARE REPLACEMENT/A DVANTAGE - PPO) Roxann Medeiros [id number] Roxann Medeiros Notes Date Note Type Note Provider Name and Address Organization Details Recorded Time 10/05/2024 text/html 69 y/o f presents today for diabetes follow up. She is fasting today.She will need repeat CMP and thyroid labs. Orders already chart. Denies complaints. Blaire hernandez, BOLT HEADER [address], [place], [address], [facility] - [facility] 10/05/2024 08:44:37 OBGyn Episode No OBEpisode recorded.
--- OUTSIDE RECORDS SUMMARY | 2024-10-10 09:09 | XMS_ITS | Clinical Summary ---
Author Organization [facility] Address [address] [place] [address] Care Team Providers Care Cardiac Cath Rn Name Role Phone Unavailable Primary Care Provider Unavailabl e Encounters Date Type Department Care Team Description 08/22/2024 Transcribe Orders Centralized Scheduling [address] [place] [address] Blaire Russo APRN Visit for screening mammogram (Primary Dx) from Last 3 Months Social History Tobacco Use Types Packs/Day Years Used Date Smoking Tobacco: Never Assessed Comments Unknown Sex and Gender Information Value Date Recorded Sex Assigned at Not on file Legal Sex Female 3:29 PM EDT Gender Identity Not on file Sexual Orientation Not on file Plan of Treatment Health Maintenance Due Date Last Done Comments COLOGUARD 1953 COLONOSCOPY 1953 Colorectal Screening Combination 1953 FIT 1953 HEP C SCREENING 1953 SIGMOIDOSCOPY 1953 ANNUAL WELLNESS EXAM 1956 DTAP/TDAP/TD VACCINE (1 - Tdap) 1972 ANNUAL MAMMOGRAM 1993 PNEUMOCOCCAL VACCINE 65+ YEA RS (1 of 1 - PCV) 2003 Shingles Vaccine (Shingrix) (1 of 2) 2003 DEXA SCAN EVERY 2 YR (Osteop orosis Screen) 2018 INFLUENZA VACCINE (#1) 2024 HEP A VACCINE Aged Out No longer elig ible based on patient's age to complete this topic HIB VACCINE Aged Out No longer eligi ble based on patient's age to complete this topic ROTOVIRUS VACCINE Aged Out No longer eligible based on patient's age to complete this topic Insurance [facility]
--- OUTSIDE RECORDS SUMMARY | 2024-10-10 09:10 | XMS_ITS | Continuity of Care Document ---
Author Organization [facility] Address [address] [place] [address] Assessment Encounter Date Assessment Date Assessment LastModified by Organization Details LastModified Time 08/22/2024 08/22/2024 Patient presente d to office today for their Medicare Annual Wellness Visit. Education was provided on healthy nutrition, including a diet rich in fruits and vegetables, minimizing simple carbohydrates, salt, and saturated fats. Encouraged regular cardiovascular exercise such as walking at least 30 minutes daily, 5 times per week. Emphasized preventive health measures and educated pt on fall prevention and community-based lifestyle interventions to help reduce health risks and promote healthy living. Medicare Preventive Services Check List reviewed and printed for patient. [email or web address] Not available 08/22/2024 08:54:41 Plan of Treatment Reminders Order Date Submit Date Provider Last Modified By Organization Details Last Modified Time Details Appointments Diabet ic F/U 2024 09:00A M Blaire Arzate, YANI Not available Not available Not available Lab albumi n/genesis gamezine , mass ratio, urine 2024 025 CRYSTAL [facility], [address], [place], [place], [address], 08/23/2024 12:11:22 Referral None record ed. Procedures None record ed. Surgeries None record ed. Imaging MAMMO, screen ing, digita l, bilate ral 2024 025 [email or web address] [facility] Scheduling, [address] [place], [address], 09/28/2024 10:53:57 DEXA 2024 025 [email or web address] [facility] Central[facility] Scheduling, [address] , [place], [address], 09/14/2024 08:21:55 Medication Orders None record ed. Patient Targets Encounter Date Encounter Id Patient Goals Patient Target Last Modified By Organization Details Last Modified Time 08/22/2024 [id number] Lose 15 lbs, increase exercise as tolerated. Increase water and avoid exposure to tobacco. [email or web address] Not available 08/22/2024 16:06:11 Patient Instructions Encounter Date Encounter Id Patient Instructions Last Modified By Organization Details Last Modified Time 08/22/2024 [id number] advance directives: care instructions [email or web address] Not available 08/22/2024 09:38:00 learning about depression [email or web address] Not available 08/22/2024 09:37:59 dietary fats, cholesterol and heart health [email or web address] Not available 08/22/2024 16:04:48 heart-healthy diet: care instructions [email or web address] Not available 08/22/2024 16:04:47 body mass index: care instructions [email or web address] Not available 08/22/2024 09:38:00 learning about healthy weight [email or web address] Not available 08/22/2024 09:38:00 preventing falls: care instructions [email or web address] Not available 08/22/2024 09:38:00 walking for exercise: care instructions [email or web address] Not available 08/22/2024 16:04:48 medicare preventive services guide [email or web address] Not available 08/22/2024 09:38:00 Call if any questions or if symptoms worsen. [email or web address] Not available 08/22/2024 16:06:37 Reason for Referral None Reported. Results Created Date Observation Date Name Description Value Unit Range Abnormal Flag Note LastModifiedBy Organization Detail LastModifiedTime 08/23/1908/23/2024 CBC WITH DIFFE RENTI AL/PL ATELE T WBC 3.8 x10e3 /uL 3.4-10 .8 normal Not Available [facility] ([facility]) [address], [place], [address], 08/23/2024 08:23:55 08/23/19 25 08/23/2024 CBC WITH DIFFE RENTI AL/PL ATELE T RBC 4.06 x10e6 /uL 3.77-5 .28 normal Not Available [facility] ([facility]) [address] [place], [address], 08/23/2024 08:23:55 08/23/19 25 08/23/2024 CBC WITH DIFFE RENTI AL/PL ATELE T hemoglobin 10.3 g/dL 11.1-1 5.9 below low normal Not Available [facility] ([facility]) [address] [place], [address], 08/23/2024 08:23:55 08/23/19 25 08/23/2024 CBC WITH DIFFE RENTI AL/PL ATELE T hematocrit 35.4 % 34.0-4 6.6 normal Not Available [facility] ([facility]) [address] [place], [address], 08/23/2024 08:23:55 08/23/19 25 08/23/2024 CBC WITH DIFFE RENTI AL/PL ATELE T MCV 87 fL 79-97 normal Not Available [facility] ([facility]) [address] [place], [address], 08/23/2024 08:23:55 08/23/19 25 08/23/2024 CBC WITH DIFFE RENTI AL/PL ATELE T MCH 25.4 pg 26.6-3 3.0 below low normal Not Available [facility] ([facility]) [address] [place], [address], 08/23/2024 08:23:55 08/23/19 25 08/23/2024 CBC WITH DIFFE RENTI AL/PL ATELE T MCHC 29.1 g/dL 31.5-3 5.7 below low normal Not Available [facility] ([facility]) [address] [place], [address], 08/23/2024 08:23:55 08/23/19 25 08/23/2024 CBC WITH DIFFE RENTI AL/PL ATELE T RDW 14.3 % 11.7-1 5.4 Not Available [facility] ([facility]) [address] [facility], [place], [address], 08/23/2024 08:23:55 08/23/19 25 08/23/2024 CBC WITH DIFFE RENTI AL/PL ATELE T platelets 113 x10e3 /uL 150-45 0 below low normal Not Available [facility] ([facility]) [address] [facility], [place], [address], 08/23/2024 08:23:55 08/23/19 25 08/23/2024 CBC WITH DIFFE RENTI AL/PL ATELE T neutrophils 62 % not estab. normal Not Available [facility] ([facility]) [address] [facility], [place], [address], 08/23/2024 08:23:55 08/23/19 25 08/23/2024 CBC WITH DIFFE RENTI AL/PL ATELE T lymphs 22 % not estab. normal Not Available [facility] ([facility]) [address] [facility], [place], [address], 08/23/2024 08:23:55 08/23/19 25 08/23/2024 CBC WITH DIFFE RENTI AL/PL ATELE T monocytes 11 % not estab. normal Not Available [facility] ([facility]) [address] [facility], [place], [address], 08/23/2024 08:23:55 08/23/19 25 08/23/2024 CBC WITH DIFFE RENTI AL/PL ATELE T eos 4 % not estab. normal Not Available [facility] ([facility]) [address] [place], [address], 08/23/2024 08:23:55 08/23/19 25 08/23/2024 CBC WITH DIFFE RENTI AL/PL ATELE T basos 1 % not estab. normal Not Available [facility] ([facility]) [address] [place], [address], 08/23/2024 08:23:55 08/23/19 25 08/23/2024 CBC WITH DIFFE RENTI AL/PL ATELE T immature cells MASTER WELDER Not Available [facility] ([facility]) [address] [place], [address], 08/23/2024 08:23:55 08/23/19 25 08/23/2024 CBC WITH DIFFE RENTI AL/PL ATELE T neutrophils (absolute) 2.4 x10e3 /uL 1.4-7. 0 normal Not Available [facility] ([facility]) [address] [place], [address], 08/23/2024 08:23:55 08/23/19 25 08/23/2024 CBC WITH DIFFE RENTI AL/PL ATELE T lymphs (absolute) 0.8 x10e3 /uL 0.7-3. 1 normal Not Available [facility] ([facility]) [address] [place], [address], 08/23/2024 08:23:55 08/23/19 25 08/23/2024 CBC WITH DIFFE RENTI AL/PL ATELE T monocytes(ab solute) 0.4 x10e3 /uL 0.1-0. 9 normal Not Available [facility] ([facility]) [address] [place], [address], 08/23/2024 08:23:55 08/23/19 25 08/23/2024 CBC WITH DIFFE RENTI AL/PL ATELE T eos (absolute) 0.2 x10e3 /uL 0.0-0. 4 normal Not Available [facility] ([facility]) [address] [place], [address], 08/23/2024 08:23:55 08/23/19 25 08/23/2024 CBC WITH DIFFE RENTI AL/PL ATELE T baso (absolute) 0.0 x10e3 /uL 0.0-0. 2 normal Not Available [facility] ([facility]) [address] [facility], [place], [address], 08/23/2024 08:23:55 08/23/19 25 08/23/2024 CBC WITH DIFFE RENTI AL/PL ATELE T immature granulocytes 0 % not estab. Not Available [facility] ([facility]) [address] [facility], [place], [address], 08/23/2024 08:23:55 08/23/19 25 08/23/2024 CBC WITH DIFFE RENTI AL/PL ATELE T immature grans (abs) 0.0 x10e3 /uL 0.0-0. 1 Not Available [facility] ([facility]) [address] [facility], [place], [address], 08/23/2024 08:23:55 08/23/19 25 08/23/2024 CBC WITH DIFFE RENTI AL/PL ATELE T NRBC MASTER WELDER Not Available [facility] ([facility]) [address] [facility], [place], [address], 08/23/2024 08:23:55 08/23/19 25 08/23/2024 CBC WITH DIFFE RENTI AL/PL ATELE T hematology comments: MASTER WELDER Not Available [facility] ([facility]) [address] [facility], [place], [address], 08/23/2024 08:23:55 08/23/19 25 08/23/2024 COMP. METAB OLIC PANEL (14) glucose 217 mg/dL 70-99 above high normal Not Available [facility] ([facility]) [address] [place], [address], 08/23/2024 08:23:55 08/23/19 25 08/23/2024 COMP. METAB OLIC PANEL (14) BUN 9 mg/dL 8-27 normal Not Available [facility] ([facility]) [address] [facility], [address], 08/23/2024 08:23:55 08/23/19 25 08/23/2024 COMP. METAB OLIC PANEL (14) creatinine 1.12 mg/dL 0.57-1 .00 above high normal Not Available [facility] ([facility]) [address] [facility] [place], [address], 08/23/2024 08:23:55 08/23/19 25 08/23/2024 COMP. METAB OLIC PANEL (14) eGFR 53 mL/mi n/1.7 3 >59 below low normal Not Available [facility] ([facility]) [address] [facility], [address], 08/23/2024 08:23:55 08/23/19 25 08/23/2024 COMP. METAB OLIC PANEL (14) BUN/creatini ne ratio 8 12-28 below low normal Not Available [facility] ([facility]) [address] [facility], [address], 08/23/2024 08:23:55 08/23/19 25 08/23/2024 COMP. METAB OLIC PANEL (14) sodium 139 mmol/ L 134-14 4 normal Not Available [facility] ([facility]) [address] [place], [address], 08/23/2024 08:23:55 08/23/19 25 08/23/2024 COMP. METAB OLIC PANEL (14) potassium 3.4 mmol/ L 3.5-5. 2 below low normal Not Available [facility] ([facility]) [address] [facility], [address], 08/23/2024 08:23:55 08/23/19 25 08/23/2024 COMP. METAB OLIC PANEL (14) chloride 102 mmol/ L 96-106 normal Not Available [facility] ([facility]) [address] [facility], [address], 08/23/2024 08:23:55 08/23/19 25 08/23/2024 COMP. METAB OLIC PANEL (14) carbon dioxide, total 22 mmol/ L 20-29 normal Not Available [facility] ([facility]) [address] [facility] [place], [address], 08/23/2024 08:23:55 08/23/19 25 08/23/2024 COMP. METAB OLIC PANEL (14) calcium 9.1 mg/dL 8.7-10 .3 normal Not Available [facility] ([facility]) [address] [facility], [address], 08/23/2024 08:23:55 08/23/19 25 08/23/2024 COMP. METAB OLIC PANEL (14) protein, total 6.7 g/dL 6.0-8. 5 normal Not Available [facility] ([facility]) [address] [place], [address], 08/23/2024 08:23:55 08/23/19 25 08/23/2024 COMP. METAB OLIC PANEL (14) albumin 3.8 g/dL 3.8-4. 8 normal Not Available [facility] ([facility]) [address] [place], [address], 08/23/2024 08:23:55 08/23/19 25 08/23/2024 COMP. METAB OLIC PANEL (14) globulin, total 2.9 g/dL 1.5-4. 5 Not Available [facility] ([facility]) [address] [place], [address], 08/23/2024 08:23:55 08/23/19 25 08/23/2024 COMP. METAB OLIC PANEL (14) bilirubin, total 0.8 mg/dL 0.0-1. 2 normal Not Available [facility] ([facility]) [address] [facility] [place], [address], 08/23/2024 08:23:55 08/23/19 25 08/23/2024 COMP. METAB OLIC PANEL (14) alkaline phosphatase 131 IU/L 44-121 above high normal Not Available [facility] ([facility]) [address] [facility], [address], 08/23/2024 08:23:55 08/23/19 25 08/23/2024 COMP. METAB OLIC PANEL (14) AST (SGOT) 29 IU/L 0-40 normal Not Available [facility] ([facility]) [address] [facility], [address], 08/23/2024 08:23:55 08/23/19 25 08/23/2024 COMP. METAB OLIC PANEL (14) ALT (SGPT) 12 IU/L 0-32 normal Not Available [facility] ([facility]) [address] [facility], [address], 08/23/2024 08:23:55 08/23/19 25 08/23/2024 PHOSP HORUS phosphorus 2.5 mg/dL 3.0-4. 3 below low normal Not Available [facility] ([facility]) [address] [facility], [address], 08/23/2024 08:23:56 08/23/19 25 08/23/2024 MAGNE SIUM magnesium 2.0 mg/dL 1.6-2. 3 normal Not Available [facility] ([facility]) [address] [facility], [address], 08/23/2024 08:23:56 08/23/19 25 08/23/2024 ALBUM IN/CR EATIN INE RATIO ,URIN E creatinine, urine 19.1 mg/dL not estab. normal Not Available [facility] ([facility]) [address] [facility], [place], [address], 08/23/2024 12:11:22 08/23/19 25 08/23/2024 ALBUM IN/CR EATIN INE RATIO ,URIN E albumin, urine 4.2 ug/mL not estab. Not Available [facility] ([facility]) [address] [facility], [place], [address], 08/23/2024 12:11:22 08/23/19 25 08/23/2024 ALBUM IN/CR EATIN INE RATIO ,URIN E alb/creat ratio 22 mg/g_ creat 0-29 Gaby l: 0 - 29 Moder ately incre ased: 30 - 300 Sever jam incre ased: >300 Not Available [facility] ([facility]) [address] [facility], [place], [address], 08/23/2024 12:11:22 Result Notes None recorded. Problems Name Problem SNOMED Code Status Onset Date Resolution Date Notes Provider Name and Address Organization Details Recorded Time Diabetes mellitus 46071441 Active 2023 Steve Appiah null, [place] - [facility] 4 10:08:01 Hypothyroidism 81915947 Active 2023 Steve Appiah null, [place] - [facility] 4 10:08:06 Hypertensive disorder 01121356 Active 2023 Steve Appiah null, [place] - [facility] 4 10:08:14 Gastroesophage al reflux disease 025091501 Active 2023 Steve Appiah null, [place] - [facility] 4 10:09:28 Hyperlipidemia 76306256 Active 2023 Steve Appiah null, [place] - [facility] 4 10:09:33 Primary hypothyroidism 09527351 Active 2024 Blaire Arzate, [employer] [address], [place], [address] [facility] [place] - [facility] 5 13:30:32 Essential hypertension 53302392 Active 2024 Blaire Arzate, [employer] [address], [place], [address], [place] - [facility] 5 16:27:10 Platelet count below reference range 941665788 Active 2024 Blaire Arzate, [employer] [address], [place], [address], [place] - [facility] 5 12:50:21 Serum creatinine above reference range 420739932 Active 2024 Blaire Arzate, [employer] [address], [place], [address], [place] - [facility] 5 12:51:04 Postmenopausal osteoporosis 904857793 Active 2024 Blaire Arzate, [employer] [address], [place], [address], [place] - [facility] 5 09:12:35 Hypokalemia 20640105 Active 2024 Blaire Arzate, [employer] [address], [place], [address], [place] - [facility] 11:06:16 Problem Notes None recorded. Procedures Surgical History Date Name Laterality Status Provider Name and Address Organization Details Recorded Time 08/23/19 Advance Care Planning completed Brielle Castañeda [place] - [facility] 08/22/2024 08:54:42 08/23/19 25 Functional Status Assessed completed Brielle Castañeda [place] - [facility] 08/22/2024 08:54:42 open heart surgery completed Lien Appiah [place] - [facility] 11/26/2023 10:10:05 Cardiac Surgery completed Steve Appiah [place] - [facility] 11/26/2023 10:10:23 cholecystectomy completed Steve Appiah [place] - [facility] 11/26/2023 10:10:40 Carpal tunnel surgery completed Steve Appiah [place] - [facility] 11/26/2023 10:10:45 Imaging Results None recorded. Procedure [...] mass index (BMI) Body weight Respiratory rate Oxygen saturation Oxygen saturation in Arterial blood by Pulse oximetry Heart rate Systolic And Diastolic Provider Name and Address Organization Details Last Updated DateTime 5 154.94 cm 27.3 kg/m2 78467.4 g 20 /min 93 % 93 % 77 /min 151/69 mm[Hg] Brielle Castañeda [place] - [facility] 5 09:03:23 Social History Question Answer Notes LastModified by Organizat ion Details LastModified Time Tobacco Smoking Status Former Smoker Steve Appiah am[place], [place] - [facility] 11/26/2023 10:10:16 When Did You Quit Smoking? 1-5yearssinc [email or web address] te Information not available 11/26/2023 What Was The Date Of Your Most Recent Tobacco Screening? 08/22/2024 [email or web address] Information not available 08/22/2024 Has Tobacco Cessation Counseling Been Provided? Yes Information not available 11/26/2023 On What Date Was Tobacco Cessation Counseling Provided? 08/22/2024 [email or web address] Information not available 08/22/2024 Sex: Female Functional [...] 50 mcg/0.25mL dose 04/11/2020 completed Steve Appiah ame[place], [place] - [facility] 11/26/2023 10:02:01 COVID-19, mRNA, LNP-S, PF, 100 mcg/0.5mL dose or 50 mcg/0.25mL dose 05/18/2020 completed Steve lindquist, [place] - [facility] 11/26/2023 10:02:01 Past Encounters Encounter ID Performer Location Encounter Start Date Encounter Closed Date Diagnosis/Indication Diagnosis SNOMED-CT Code Diagnosis ICD10 Code Diagnosis Note [id number] Blaire chavez APRN [facility] [address] [place] [address] 08/22/2024 08:48:24 08/22/2024 11:51:02 Adult health examination 003903325 Z00.00 Depression screening 171 651654 Z13.31 A depression screening was completed via a standardiz ed screening tool. 5 minutes were spent discussing depression screening results and risk factors. Examinatio n of blood pressure 134878623 Z01.30 BP 151/69, uncontroll ed - states her BP is high because her insurance would not approve portable oxygen, wears oxygen at home but cannot carry it when she leaves the house. Diet education 14088671 Z71.3 Counseling 806975466 Z71 .82 Exercise counseling . Patient encouraged to exercise 30 minutes 5 days a week. At [facility] ed risk for falls 608579873 Z91.81 STEADI FAST screening score of _6___. Advance care planning 71 2403635 Z71.89 Body mass index 25-29 - overweight 803145112 E66.3 Overweight 586765118 E66 .3 Postmenopa usal osteoporosis 874212258 M81.0 Screening mammography 24 559585 Z12.31 Diabetes mellitus 615963 09 E11.9 A1c 7.0 controlled . Health Concerns Section Related Observation LastModified by Organization Vicky ls LastModified Time None Recorded Concern Status LastModified by Organization Details LastModified Time None Recorded Payers Encounter Date Sequence Insurance Name Policy Number Policy Richardson Covered Member ID Richardson Member ID Guarantor Name 08/22/2024 1 [employer] (MEDICARE REPLACEMENT/A DVANTAGE - PPO) Roxann Domínguez Mala [id number] Roxann Medeiros Notes Date Note Type Note Provider Name and Address Organization Details Recorded Time 08/22/2024 text/html Medicare Annual Wellness VisitReported bypatient.Diet and Nutrition:diet is high in salt;diet is high in fat, low in fiber;high caloric intake;high carbohydrate meals;low calcium intake Fracture Risk:no history of fractures; no recent explained fracture;sudden unexplained fractures;previous musculoskeletal injuries Physical Activity:exercises on a regular basis;decreased physical activity;poor physical condition;decondition ed due to sedentary lifestyle Depression Risk:never feels sad, empty, or tearful; no loss of interest in activities; no significant changes in weight; no sleep disturbances or insomnia; no agitation; no loss of energy; no feelings of worthlessness or guilt; no thoughts of suicide; no history of depression; no history of mood disorders Orientation:no disorientation to time; no disorientation to date; no disorientation to place Concentration and Memory:no decreased concentrating ability; no memory lapses or loss; does not forget words Speech/Motor difficulties:no speech difficulties; no difficulty expressing formulated concepts; no difficulty with fine manipulative tasks; no difficulty writing/copying; no slowed reaction time; does not knock things over when trying to pick them up Hearing:no loss of hearing Vision:no vision problems Activities of Daily Living:able to bathe with limited or no assistance; able to contol urination and bowels; able to dress with limited or no assistance; able to feed self with limited or no assistance; able to get out of chair or bed with limited or no assistance; able to groom with limited or no assistance; able to toilet with limited or no assistance Instrumental Activities of Daily Living:able to do house work with limited or no assistance; able to grocery shop with limited or no assistance; able to manage medications with limited or no assistance; able to manage money with limited or no assistance; able to prepare meals with limited or no assistance; able to use the phone with limited or no assistance Falls Risk Assessment:no frequent falls while walking; no fall in the past year; no fall since last visit; no dizziness/vertigo Home Safety:no unsafe katherine hazzards; no unsafe stairs; no unsafe gas appliances; working smoke/CO detectors; use of seatbelts; practicing 'safer sex'; no vision or hearing loss while driving; good lighting in the home Current level of painPain Present 69 y/o f presents today for MAWE. She is fasting today. Blaire Adrian rt, [employer] [address], [place], [address], [facility] - [facility] 08/22/2024 16:07:04 OBGyn Episode No OBEpisode recorded.
--- OUTSIDE RECORDS SUMMARY | 2024-10-10 09:10 | XMS_ITS | Data Portability ---
Author Organization [facility] Address [address] [place] [address] Assessment Encounter Date Assessment Date Assessment LastModified by Organization Details LastModified Time 07/04/2024 07/04/2024 Pt counseled on diet and weight management at today's visit. Pt will try to comply with ADA guidelines in regards to diet and increase daily activity as tolerated. Call or RTC sooner than follow up should any questions or concerns arise. epi Not available 07/04/2024 13:27:34 08/22/2024 08/22/2024 Patient presented to office today for their Medicare Annual [...] Check List reviewed and printed for patient. [email or web address] Not available 08/22/2024 08:54:41 10/05/2024 10/05/2024 Overall, pt doing well at [...] Details Appointments Diabet ic F/U 2024 09:00A Aj Arzate, YANI Not available Not available Not available Lab HbA1c (hemog lobin A1c), blood 2024 025 [email or web address] [facility], [address], [place], [address], 10/05/2024 08:28:48 albumi n/crea tinine , mass ratio, urine 2024 025 [facility], [address], [address], [place], [address], 08/23/2024 12:11:22 TSH + free T4, serum 2024 025 [facility], [address], [address] [address], [place], [address], 07/05/2024 09:03:11 HbA1c (hemog lobin A1c), blood 2024 025 [email or web address] [facility], [address], [place], [address], 07/04/2024 13:29:38 microa lbumin /creat inine, mass ratio, urine 2024 025 [facility], [address], [place], [address], 07/04/2024 13:54:59 CMP, serum or plasma 2024 025 [facility], [address], [address] [address], [place], [address], 07/05/2024 09:03:13 CBC w/ auto diff 2024 025 [facility], [address], [address] [address], [place], [address], 07/05/2024 09:03:12 Hepati tis C IgG Ab, qual, serum 2024 025 [facility], [address], [address], [place], [address], 07/05/2024 09:03:13 Referral None record ed. Procedures diabet ic foot screen (PROC) 2024 025 [email or web address] Not available 07/04/2024 16:25:36 Surgeries None record ed. Imaging MAMMO, screen ing, digita l, bilate ral 2024 025 [email or web address] [facility], [address] [place], [address], 09/28/2024 10:53:57 DEXA 2024 025 [email or web address] [facility], [address] [facility] , [place], [address], 09/14/2024 08:21:55 photo, eye, fundus 2024 025 Not available 07/04/2024 14:07:54 Medication Orders metfor min ER 500 mg tablet ,exten ded releas e 24 hr 2024 025 [facility] [place], [address], [address], 09/14/2024 13:46:42 Ozempi c 1 mg/dos e (4 mg/3 mL) subcut aneous pen inject or [address] [facility] - [address], [place], [address], 09/14/2024 13:46:42 losart an 100 mg tablet 2024 025 [email or web address] [facility] [address] [place], [address], 07/04/2024 16:34:32 Ozempi c 1 mg/dos e (4 mg/3 mL) subcut aneous pen inject or 2024 025 [facility], [address], [place], [address], 03/30/2024 13:35:41 metfor min ER 500 mg tablet ,exten ded releas e 24 hr 2024 025 [facility] [place], [address], [place], [address], 03/30/2024 13:35:42 Patient Targets Encounter Date Encounter Id Patient Goals Patient Target Last Modified By Organization Details Last Modified Time 07/04/2024 [id number] Goal is keep A1c <7.0, avoid soft drinks, tobacco, increase water and exercise. epi Not available 07/04/2024 16:26:16 08/22/2024 [id number] Lose 15 lbs, increase exercise as tolerated. Increase water and avoid exposure to tobacco. [email or web address] Not available 08/22/2024 16:06:11 09/14/2024 [id number] Goal is BP <140/80. Lose 15 lbs., increase water and exercise as tolerated. epi Not available 09/14/2024 13:48:17 Patient Instructions Encounter Date Encounter Id Patient Instructions Last Modified By Organization Details Last Modified Time 03/30/2024 [id number] glucose sensor download and interpretation* [email or web address] Not available 03/30/2024 13:57:44 increased ozempic and restart metformin but at lower dose due gfr of 45 and gi distress, to call for side effects fu in 3 months [email or web address] Not available 03/30/2024 13:59:21 07/04/2024 [id number] body mass index: care instructions epi Not available 07/04/2024 13:29:38 learning about healthy weight epi Not available 07/04/2024 13:29:38 hypothyroidism: care instructions [email or web address] Not available 07/04/2024 16:25:36 low sodium diet (2,000 milligram): care instructions [email or web address] Not available 07/04/2024 16:34:52 diabetic foot exam* [email or web address] Not available 07/04/2024 16:55:54 diabetes foot health: care instructions vlkeithgilbert Not available 07/04/2024 16:25:36 diabetic foot care vlpalmerrenrealgilbert Not available 07/04/2024 16:25:36 Call if any questions or if symptoms worsen. [email or web address] Not available 07/04/2024 16:26:37 08/22/2024 [id number] advance directives: care instructions [email or web address] Not available 08/22/2024 09:38:00 learning about depression [email or web address] Not available 08/22/2024 09:37:59 dietary fats, cholesterol and heart health [email or web address] Not available 08/22/2024 16:04:48 heart-healthy diet: care instructions rohanlbert Not available 08/22/2024 16:04:47 body mass index: care instructions vlkeithgilbert Not available 08/22/2024 09:38:00 learning about healthy weight [email or web address] Not available 08/22/2024 09:38:00 preventing falls: care instructions cherellegilbert Not available 08/22/2024 09:38:00 walking for exercise: care instructions [email or web address] Not available 08/22/2024 16:04:48 medicare preventive services guide [email or web address] Not available 08/22/2024 09:38:00 Call if any questions or if symptoms worsen. [email or web address] Not available 08/22/2024 16:06:37 09/14/2024 [id number] Call if any questions or if symptoms worsen. [email or web address] Not available 09/14/2024 13:52:50 10/05/2024 [id number] body mass index: care instructions [email or web address] Not available 10/05/2024 08:28:48 learning about healthy weight epi Not available 10/05/2024 08:28:48 hypothyroidism: care instructions epi Not available 10/05/2024 08:28:48 Reason for Referral None Reported. Results Created Date Observation Date Name Description Value Unit Range Abnormal Flag Note LastModifiedBy Organization Detail LastModifiedTime 07/05/1907/05/2024 TSH+F REE T4 TSH 0.379 uIU/m L 0.450- 4.500 below low normal Not Available [facility] ([facility]) [address] [place], [address], 07/05/2024 09:03:11 07/05/1907/05/2024 TSH+F REE T4 T4,free(dire ct) 1.45 NG/dL 0.82-1 .77 normal Not Available [facility] ([facility]) [address] [place], [address], 07/05/2024 09:03:11 07/05/1907/05/2024 CBC WITH DIFFE RENTI AL/PL ATELE T WBC 5.2 x10e3 /uL 3.4-10 .8 normal Not Available [facility] ([facility]) [address] [place], [address], 07/05/2024 09:03:12 07/05/1907/05/2024 CBC WITH DIFFE RENTI AL/PL ATELE T RBC 4.15 x10e6 /uL 3.77-5 .28 normal Not Available [facility] ([facility]) [address] [place], [address], 07/05/2024 09:03:12 07/05/1907/05/2024 CBC WITH DIFFE RENTI AL/PL ATELE T hemoglobin 10.9 g/dL 11.1-1 5.9 below low normal Not Available [facility] ([facility]) [address] [place], [address], 07/05/2024 09:03:12 07/05/1907/05/2024 CBC WITH DIFFE RENTI AL/PL ATELE T hematocrit 35.2 % 34.0-4 6.6 normal Not Available [facility] ([facility]) [address] [facility], [place], [address], 07/05/2024 09:03:12 07/05/1907/05/2024 CBC WITH DIFFE RENTI AL/PL ATELE T MCV 85 fL 79-97 normal Not Available [facility] ([facility]) [address] [place], [address], 07/05/2024 09:03:12 07/05/1907/05/2024 CBC WITH DIFFE RENTI AL/PL ATELE T MCH 26.3 pg 26.6-3 3.0 below low normal Not Available [facility] ([facility]) [address] [place], [address], 07/05/2024 09:03:12 07/05/1907/05/2024 CBC WITH DIFFE RENTI AL/PL ATELE T MCHC 31.0 g/dL 31.5-3 5.7 below low normal Not Available [facility] ([facility]) [address] [place], [address], 07/05/2024 09:03:12 07/05/1907/05/2024 CBC WITH DIFFE RENTI AL/PL ATELE T RDW 14.5 % 11.7-1 5.4 Not Available [facility] ([facility]) [address] [place], [address], 07/05/2024 09:03:12 07/05/19 25 07/05/2024 CBC WITH DIFFE RENTI AL/PL ATELE T platelets 140 x10e3 /uL 150-45 0 below low normal Not Available [facility] ([facility]) [address] [place], [address], 07/05/2024 09:03:12 07/05/19 25 07/05/2024 CBC WITH DIFFE RENTI AL/PL ATELE T neutrophils 63 % not estab. normal Not Available [facility] ([facility]) [address] [facility], [place], [address], 07/05/2024 09:03:12 07/05/19 25 07/05/2024 CBC WITH DIFFE RENTI AL/PL ATELE T lymphs 22 % not estab. normal Not Available [facility] ([facility]) [address] [place], [address], 07/05/2024 09:03:12 07/05/19 25 07/05/2024 CBC WITH DIFFE RENTI AL/PL ATELE T monocytes 11 % not estab. normal Not Available [facility] ([facility]) [address] [place], [address], 07/05/2024 09:03:12 07/05/19 25 07/05/2024 CBC WITH DIFFE RENTI AL/PL ATELE T eos 3 % not estab. normal Not Available [facility] ([facility]) [address] [facility], [place], [address], 07/05/2024 09:03:12 07/05/19 25 07/05/2024 CBC WITH DIFFE RENTI AL/PL ATELE T basos 1 % not estab. normal Not Available [facility] ([facility]) [address] [facility], [place], [address], 07/05/2024 09:03:12 07/05/19 25 07/05/2024 CBC WITH DIFFE RENTI AL/PL ATELE T immature cells TRAFFIC LIEUTENANT Not Available [facility] ([facility]) [address] [place], [address], 07/05/2024 09:03:12 07/05/19 25 07/05/2024 CBC WITH DIFFE RENTI AL/PL ATELE T neutrophils (absolute) 3.3 x10e3 /uL 1.4-7. 0 normal Not Available [facility] ([facility]) [address] [place], [address], 07/05/2024 09:03:12 07/05/1907/05/2024 CBC WITH DIFFE RENTI AL/PL ATELE T lymphs (absolute) 1.2 x10e3 /uL 0.7-3. 1 normal Not Available [facility] ([facility]) [address] [facility], [place], [address], 07/05/2024 09:03:12 07/05/1907/05/2024 CBC WITH DIFFE RENTI AL/PL ATELE T monocytes(ab solute) 0.6 x10e3 /uL 0.1-0. 9 normal Not Available [facility] ([facility]) [address] [place], [address], 07/05/2024 09:03:12 07/05/1907/05/2024 CBC WITH DIFFE RENTI AL/PL ATELE T eos (absolute) 0.2 x10e3 /uL 0.0-0. 4 normal Not Available [facility] ([facility]) [address] [place], [address], 07/05/2024 09:03:12 07/05/1907/05/2024 CBC WITH DIFFE RENTI AL/PL ATELE T baso (absolute) 0.0 x10e3 /uL 0.0-0. 2 normal Not Available [facility] ([facility]) [address] [place], [address], 07/05/2024 09:03:12 07/05/1907/05/2024 CBC WITH DIFFE RENTI AL/PL ATELE T immature granulocytes 0 % not estab. Not Available [facility] ([facility]) [address] [place], [address], 07/05/2024 09:03:12 07/05/1907/05/2024 CBC WITH DIFFE RENTI AL/PL ATELE T immature grans (abs) 0.0 x10e3 /uL 0.0-0. 1 Not Available [facility] ([facility]) [address] [facility], [place], [address], 07/05/2024 09:03:12 07/05/1907/05/2024 CBC WITH DIFFE RENTI AL/PL ATELE T NRBC TRAFFIC LIEUTENANT Not Available [facility] ([facility]) [address] [facility], [place], [address], 07/05/2024 09:03:12 07/05/1907/05/2024 CBC WITH DIFFE RENTI AL/PL ATELE T hematology comments: TRAFFIC LIEUTENANT Not Available [facility] ([facility]) [address] [facility], [place], [address], 07/05/2024 09:03:12 07/05/1907/05/2024 COMP. METAB OLIC PANEL (14) glucose 248 mg/dL 70-99 above high normal Not Available [facility] ([facility]) [address] [facility], [place], [address], 07/05/2024 09:03:13 07/05/19 25 07/05/2024 COMP. METAB OLIC PANEL (14) BUN 11 mg/dL 8-27 normal Not Available [facility] ([facility]) [address] [facility], [place], [address], 07/05/2024 09:03:13 07/05/1907/05/2024 COMP. METAB OLIC PANEL (14) creatinine 1.17 mg/dL 0.57-1 .00 above high normal Not Available [facility] ([facility]) [address] [facility], [place], [address], 07/05/2024 09:03:13 07/05/19 25 07/05/2024 COMP. METAB OLIC PANEL (14) eGFR 50 mL/mi n/1.7 3 >59 below low normal Not Available [facility] ([facility]) [address] [place], [address], 07/05/2024 09:03:13 07/05/19 25 07/05/2024 COMP. METAB OLIC PANEL (14) BUN/creatini ne ratio 9 12-28 below low normal Not Available [facility] ([facility]) [address] [place], [address], 07/05/2024 09:03:13 07/05/19 25 07/05/2024 COMP. METAB OLIC PANEL (14) sodium 139 mmol/ L 134-14 4 normal Not Available [facility] ([facility]) [address] [place], [address], 07/05/2024 09:03:13 07/05/19 25 07/05/2024 COMP. METAB OLIC PANEL (14) potassium 3.8 mmol/ L 3.5-5. 2 normal Not Available [facility] ([facility]) [address] [place], [address], 07/05/2024 09:03:13 07/05/19 25 07/05/2024 COMP. METAB OLIC PANEL (14) chloride 101 mmol/ L 96-106 normal Not Available [facility] ([facility]) [address] [place], [address], 07/05/2024 09:03:13 07/05/19 25 07/05/2024 COMP. METAB OLIC PANEL (14) carbon dioxide, total 21 mmol/ L 20-29 normal Not Available [facility] ([facility]) [address] [place], [address], 07/05/2024 09:03:13 07/05/19 25 07/05/2024 COMP. METAB OLIC PANEL (14) calcium 9.3 mg/dL 8.7-10 .3 normal Not Available [facility] ([facility]) [address] [place], [address], 07/05/2024 09:03:13 07/05/19 25 07/05/2024 COMP. METAB OLIC PANEL (14) protein, total 7.2 g/dL 6.0-8. 5 normal Not Available [facility] ([facility]) [address] [place], [address], 07/05/2024 09:03:13 07/05/19 25 07/05/2024 COMP. METAB OLIC PANEL (14) albumin 4.0 g/dL 3.8-4. 8 normal Not Available [facility] ([facility]) [address] [place], [address], 07/05/2024 09:03:13 07/05/19 25 07/05/2024 COMP. METAB OLIC PANEL (14) globulin, total 3.2 g/dL 1.5-4. 5 Not Available [facility] ([facility]) [address] [place], [address], 07/05/2024 09:03:13 07/05/19 25 07/05/2024 COMP. METAB OLIC PANEL (14) bilirubin, total 0.9 mg/dL 0.0-1. 2 normal Not Available [facility] ([facility]) [address] [place], [address], 07/05/2024 09:03:13 07/05/19 25 07/05/2024 COMP. METAB OLIC PANEL (14) alkaline phosphatase 151 IU/L 44-121 above high normal Not Available [facility] ([facility]) [address] [place], [address], 07/05/2024 09:03:13 07/05/19 25 07/05/2024 COMP. METAB OLIC PANEL (14) AST (SGOT) 33 IU/L 0-40 normal Not Available [facility] ([facility]) [address] [facility], [place], [address], 07/05/2024 09:03:13 07/05/19 25 07/05/2024 COMP. METAB OLIC PANEL (14) ALT (SGPT) 17 IU/L 0-32 normal Not Available [facility] ([facility]) [address] [facility], [place], [address], 07/05/2024 09:03:13 07/05/19 25 07/05/2024 HCV ANTIB LISA RFX TO QUANT PCR HCV Ab Non Reacti ve non reacti ve Not Available [facility] ([facility]) [address] [facility], [place], [address], 07/05/2024 09:03:13 07/05/19 25 07/05/2024 HCV ANTIB LISA RFX TO QUANT PCR interpretati on: Commen t Not infec oriana with HCV unles s early or acute infec tion is suspe cted (whic h may be delay ed in an immun ocomp romis ed indiv idual ), or other evide nce exist s to indic ate HCV infec tion. Not Available [facility] ([facility]) [address] [facility], [place], [address], 07/05/2024 09:03:13 07/05/19 25 07/04/2024 micro album in/cr eatin ine, mass ratio , urine Microalbumin 10 Not Available [facility] [address], [place], [address], 07/04/2024 13:06:01 07/05/19 25 07/04/2024 micro album in/cr eatin ine, mass ratio , urine Creatinine 50 Not Available [facility] [address], [place], [address], 07/04/2024 13:06:01 07/05/19 25 07/04/2024 micro album in/cr eatin ine, mass ratio , urine Ratio <30 Not Available [facility] [address], [place], [address], 07/04/2024 13:06:01 07/05/19 25 07/04/2024 HbA1c (hemo globi n A1c), blood HbA1C 7.0 % Not Available [facility] [address], [place], [address], 07/04/2024 13:05:55 08/23/19 25 08/23/2024 CBC WITH DIFFE RENTI AL/PL ATELE T WBC 3.8 x10e3 /uL 3.4-10 .8 normal Not Available [facility] ([facility]) [address] [place], [address], 08/23/2024 08:23:55 08/23/19 25 08/23/2024 CBC WITH DIFFE RENTI AL/PL ATELE T RBC 4.06 x10e6 /uL 3.77-5 .28 normal Not Available [facility] ([facility]) [address] [place], [address], 08/23/2024 08:23:55 08/23/19 25 08/23/2024 CBC WITH DIFFE RENTI AL/PL ATELE T hemoglobin 10.3 g/dL 11.1-1 5.9 below low normal Not Available [facility] ([facility]) [address] [place], [address], 08/23/2024 08:23:55 08/23/19 25 08/23/2024 CBC WITH DIFFE RENTI AL/PL ATELE T hematocrit 35.4 % 34.0-4 6.6 normal Not Available [facility] ([facility]) [address] [place], [address], 08/23/2024 08:23:55 08/23/19 25 08/23/2024 CBC WITH DIFFE RENTI AL/PL ATELE T MCV 87 fL 79-97 normal Not Available [facility] ([facility]) [address] [place], [address], 08/23/2024 08:23:55 08/23/19 25 08/23/2024 CBC WITH DIFFE RENTI AL/PL ATELE T MCH 25.4 pg 26.6-3 3.0 below low normal Not Available [facility] ([facility]) [address] [place], [address], 08/23/2024 08:23:55 08/23/19 25 08/23/2024 CBC WITH DIFFE RENTI AL/PL ATELE T MCHC 29.1 g/dL 31.5-3 5.7 below low normal Not Available [facility] ([facility]) [address] [facility], [place], [address], 08/23/2024 08:23:55 08/23/19 25 08/23/2024 CBC WITH DIFFE RENTI AL/PL ATELE T RDW 14.3 % 11.7-1 5.4 Not Available [facility] ([facility]) [address] [place], [address], 08/23/2024 08:23:55 08/23/19 25 08/23/2024 CBC WITH DIFFE RENTI AL/PL ATELE T platelets 113 x10e3 /uL 150-45 0 below low normal Not Available [facility] ([facility]) [address] [place], [address], 08/23/2024 08:23:55 08/23/19 25 08/23/2024 CBC WITH DIFFE RENTI AL/PL ATELE T neutrophils 62 % not estab. normal Not Available [facility] ([facility]) [address] [place], [address], 08/23/2024 08:23:55 08/23/19 25 08/23/2024 CBC WITH DIFFE RENTI AL/PL ATELE T lymphs 22 % not estab. normal Not Available [facility] ([facility]) [address] [place], [address], 08/23/2024 08:23:55 08/23/19 25 08/23/2024 CBC WITH DIFFE RENTI AL/PL ATELE T monocytes 11 % not estab. normal Not Available [facility] ([facility]) [address] [place], [address], 08/23/2024 08:23:55 08/23/19 25 08/23/2024 CBC WITH DIFFE RENTI AL/PL ATELE T eos 4 % not estab. normal Not Available [facility] ([facility]) [address] [place], [address], 08/23/2024 08:23:55 08/23/19 25 08/23/2024 CBC WITH DIFFE RENTI AL/PL ATELE T basos 1 % not estab. normal Not Available [facility] ([facility]) [address] [place], [address], 08/23/2024 08:23:55 08/23/19 25 08/23/2024 CBC WITH DIFFE RENTI AL/PL ATELE T immature cells TRAFFIC LIEUTENANT Not Available [facility] ([facility]) [address] [place], [address], 08/23/2024 08:23:55 08/23/19 25 08/23/2024 CBC WITH DIFFE RENTI AL/PL ATELE T neutrophils (absolute) 2.4 x10e3 /uL 1.4-7. 0 normal Not Available [facility] ([facility]) [address] [place], [address], 08/23/2024 08:23:55 08/23/19 25 08/23/2024 CBC WITH DIFFE RENTI AL/PL ATELE T lymphs (absolute) 0.8 x10e3 /uL 0.7-3. 1 normal Not Available [facility] ([facility]) [address] [place], [address], 08/23/2024 08:23:55 08/23/19 25 08/23/2024 CBC WITH DIFFE RENTI AL/PL ATELE T monocytes(ab solute) 0.4 x10e3 /uL 0.1-0. 9 normal Not Available [facility] ([facility]) [address] [facility], [place], [address], 08/23/2024 08:23:55 08/23/19 25 08/23/2024 CBC WITH DIFFE RENTI AL/PL ATELE T eos (absolute) 0.2 x10e3 /uL 0.0-0. 4 normal Not Available [facility] ([facility]) [address] [facility], [place], [address], 08/23/2024 08:23:55 08/23/19 25 08/23/2024 CBC WITH DIFFE RENTI AL/PL ATELE T baso (absolute) 0.0 x10e3 /uL 0.0-0. 2 normal Not Available [facility] ([facility]) [address] [facility], [place], [address], 08/23/2024 08:23:55 08/23/19 25 08/23/2024 CBC WITH DIFFE RENTI AL/PL ATELE T immature granulocytes 0 % not estab. Not Available [facility] ([facility]) [address] [facility], [place], [address], 08/23/2024 08:23:55 08/23/19 25 08/23/2024 CBC WITH DIFFE RENTI AL/PL ATELE T immature grans (abs) 0.0 x10e3 /uL 0.0-0. 1 Not Available [facility] ([facility]) [address] [facility], [place], [address], 08/23/2024 08:23:55 08/23/19 25 08/23/2024 CBC WITH DIFFE RENTI AL/PL ATELE T NRBC TRAFFIC LIEUTENANT Not Available [facility] ([facility]) [address] [place], [address], 08/23/2024 08:23:55 08/23/19 25 08/23/2024 CBC WITH DIFFE CAMILLE AL/PL MADAYLE T hematology comments: TRAFFIC LIEUTENANT Not Available [facility] ([facility]) [address] [place], [address], 08/23/2024 08:23:55 08/23/19 25 08/23/2024 COMP. METAB OLIC PANEL (14) glucose 217 mg/dL 70-99 above high normal Not Available [facility] ([facility]) [address] [place], [address], 08/23/2024 08:23:55 08/23/19 25 08/23/2024 COMP. METAB OLIC PANEL (14) BUN 9 mg/dL 8-27 normal Not Available [facility] ([facility]) [address] [place], [address], 08/23/2024 08:23:55 08/23/19 25 08/23/2024 COMP. METAB OLIC PANEL (14) creatinine 1.12 mg/dL 0.57-1 .00 above high normal Not Available [facility] ([facility]) [address] [place], [address], 08/23/2024 08:23:55 08/23/19 25 08/23/2024 COMP. METAB OLIC PANEL (14) eGFR 53 mL/mi n/1.7 3 >59 below low normal Not Available [facility] ([facility]) [address] [place], [address], 08/23/2024 08:23:55 08/23/19 25 08/23/2024 COMP. METAB OLIC PANEL (14) BUN/creatini ne ratio 8 12-28 below low normal Not Available [facility] ([facility]) [address] [place], [address], 08/23/2024 08:23:55 08/23/19 25 08/23/2024 COMP. METAB OLIC PANEL (14) sodium 139 mmol/ L 134-14 4 normal Not Available [facility] ([facility]) [address] [place], [address], 08/23/2024 08:23:55 08/23/19 25 08/23/2024 COMP. METAB OLIC PANEL (14) potassium 3.4 mmol/ L 3.5-5. 2 below low normal Not Available [facility] ([facility]) [address] [place], [address], 08/23/2024 08:23:55 08/23/19 25 08/23/2024 COMP. METAB OLIC PANEL (14) chloride 102 mmol/ L 96-106 normal Not Available [facility] ([facility]) [address] [place], [address], 08/23/2024 08:23:55 08/23/19 25 08/23/2024 COMP. METAB OLIC PANEL (14) carbon dioxide, total 22 mmol/ L 20-29 normal Not Available [facility] ([facility]) [address] [place], [address], 08/23/2024 08:23:55 08/23/19 25 08/23/2024 COMP. METAB OLIC PANEL (14) calcium 9.1 mg/dL 8.7-10 .3 normal Not Available [facility] ([facility]) [address] [place], [address], 08/23/2024 08:23:55 08/23/19 25 08/23/2024 COMP. METAB OLIC PANEL (14) protein, total 6.7 g/dL 6.0-8. 5 normal Not Available [facility] ([facility]) [address] [place], [address], 08/23/2024 08:23:55 08/23/19 25 08/23/2024 COMP. METAB OLIC PANEL (14) albumin 3.8 g/dL 3.8-4. 8 normal Not Available [facility] ([facility]) [address] [place], [address], 08/23/2024 08:23:55 08/23/19 25 08/23/2024 COMP. METAB OLIC PANEL (14) globulin, total 2.9 g/dL 1.5-4. 5 Not Available [facility] ([facility]) [address] [place], [address], 08/23/2024 08:23:55 08/23/19 25 08/23/2024 COMP. METAB OLIC PANEL (14) bilirubin, total 0.8 mg/dL 0.0-1. 2 normal Not Available [facility] ([facility]) [address] [place], [address], 08/23/2024 08:23:55 08/23/19 25 08/23/2024 COMP. METAB OLIC PANEL (14) alkaline phosphatase 131 IU/L 44-121 above high normal Not Available [facility] ([facility]) [address] [place], [address], 08/23/2024 08:23:55 08/23/19 25 08/23/2024 COMP. METAB OLIC PANEL (14) AST (SGOT) 29 IU/L 0-40 normal Not Available [facility] ([facility]) [address] [place], [address], 08/23/2024 08:23:55 08/23/19 25 08/23/2024 COMP. METAB OLIC PANEL (14) ALT (SGPT) 12 IU/L 0-32 normal Not Available [facility] ([facility]) [address] [place], [address], 08/23/2024 08:23:55 08/23/19 25 08/23/2024 PHOSP HORUS phosphorus 2.5 mg/dL 3.0-4. 3 below low normal Not Available [facility] ([facility]) [address] [place], [address], 08/23/2024 08:23:56 08/23/19 25 08/23/2024 MAGNE SIUM magnesium 2.0 mg/dL 1.6-2. 3 normal Not Available [facility] ([facility]) [address] [place], [address], 08/23/2024 08:23:56 08/23/19 25 08/23/2024 ALBUM IN/CR EATIN INE RATIO ,URIN E creatinine, urine 19.1 mg/dL not estab. normal Not Available [facility] ([facility]) [address] [facility], [place], [address], 08/23/2024 12:11:22 08/23/19 25 08/23/2024 ALBUM IN/CR EATIN INE RATIO ,URIN E albumin, urine 4.2 ug/mL not estab. Not Available [facility] ([facility]) [address] [facility], [place], [address], 08/23/2024 12:11:22 08/23/19 25 08/23/2024 ALBUM IN/CR EATIN INE RATIO ,URIN E alb/creat ratio 22 mg/g_ creat 0-29 Gaby l: 0 - 29 Moder ately incre ased: 30 - 300 Sever jam incre ased: >300 Not Available [facility] ([facility]) [address] [facility], [place], [address], 08/23/2024 12:11:22 10/06/19 25 10/05/2024 HbA1c (hemo globi n A1c), blood HbA1C 6.6 % Not Available [facility] [address], [place], [address], 10/05/2024 08:07:35 07/06/19 25 07/04/2024 photo , eye, fundu s No observ ation record ed. [email or web address] Not Available 2024 08:27:57 Result Notes None recorded. Problems Name Problem SNOMED Code Status Onset Date Resolution Date Notes Provider Name and Address Organization Details Recorded Time Diabetes mellitus 82570877 Active 2023 Stevefrancesca Appiah null, [place] - [facility] 4 10:08:01 Hypothyroidism 02978254 Active 2023 Steve Glasford null, [place] - [facility] 4 10:08:06 Hypertensive disorder 97964313 Active 2023 Steve Bijal null, [place] - [facility] 4 10:08:14 Gastroesophage al reflux disease 288312871 Active 2023 Steve Glasford null, [place] - [facility] 4 10:09:28 Hyperlipidemia 20686035 Active 2023 Steve Bijal null, [place] - [facility] 4 10:09:33 Primary hypothyroidism 37401552 Active 2024 Blaire Arzate, [employer] [address], [place], [address], [place] - [facility] 5 13:30:32 Essential hypertension 40861383 Active 2024 Blaire Arzate, [employer] [address], [place], [address], [place] - [facility] 5 16:27:10 Platelet count below reference range 107416790 Active 2024 Blaire Arzate, [employer] [address], [place], [address], [place] - [facility] 5 12:50:21 Serum creatinine above reference range 915435711 Active 2024 Blaire Arzate, [employer] [address], [place], [address], [place] - [facility] 5 12:51:04 Postmenopausal osteoporosis 675497522 Active 2024 Blaire Arzate [employer] [address], [place], [address], [place] [facility] 09:12:35 Hypokalemia 78612553 Active 2024 Blaire Arzate, [employer] [address], [place], [address], [facility] - [facility] 11:06:16 Problem Notes None recorded. Procedures Surgical History Date Name Laterality Status Provider Name and Address Organization Details Recorded Time 08/23/19 Advance Care Planning completed Brielle Castañeda [facility] 08/22/2024 08:54:42 08/23/19 Functional Status Assessed completed Brielle Castañeda [facility] 08/22/2024 08:54:42 open heart surgery completed Lien Appiah [facility] 11/26/2023 10:10:05 Cardiac Surgery completed Steve Appiah [facility] 11/26/2023 10:10:23 cholecystectomy completed Steve Appiah [facility] 11/26/2023 10:10:40 Carpal tunnel surgery completed Steve Appiah [facility] 11/26/2023 10:10:45 Imaging Results None recorded. [...] height Body mass index (BMI) Body weight Body temperature Heart rate Oxygen saturation Oxygen saturation in Arterial blood by Pulse oximetry Respiratory rate Systolic And Diastolic Provider Name and Address Organization Details Last Updated DateTime 5 154.94 cm 27 kg/m2 69311.7 1 g 98 [degF] 94 /min 88 % 88 % 20 /min 124/82 mm[Hg] Steve Appiah [place] - [facility] 13:14:41 Date Recorded Body height Body mass index (BMI) Body weight Respiratory rate Oxygen saturation Oxygen saturation in Arterial blood by Pulse oximetry Heart rate Systolic And Diastolic Provider Name and Address Organization Details Last Updated DateTime 5 154.94 cm 27 kg/m2 29566.7 1 g 20 /min 95 % 95 % 86 /min 162/66 mm[Hg] Brielle Castañeda [place] - [facility] 5 13:14:32 Date Recorded Body height Body mass index (BMI) Body weight Respiratory rate Oxygen saturation Oxygen saturation in Arterial blood by Pulse oximetry Heart rate Systolic And Diastolic Provider Name and Address Organization Details Last Updated DateTime 5 154.94 cm 27.3 kg/m2 10346.4 g 20 /min 93 % 93 % 77 /min 151/69 mm[Hg] Brielle Castañeda [place] - [facility] 5 09:03:23 Date Recorded Body height Body mass index (BMI) Body weight Respiratory rate Heart rate Oxygen saturation Oxygen saturation in Arterial blood by Pulse oximetry Systolic And Diastolic Provider Name and Address Organization Details Last Updated DateTime 5 154.94 cm 27.3 kg/m2 39723.0 5 g 20 /min 85 /min 94 % 94 % 147/59 mm[Hg] Brielle Castañeda [place] - [facility] 5 13:15:23 Date Recorded Body height Body mass index (BMI) Body weight Respiratory rate Heart rate Oxygen saturation Oxygen saturation in Arterial blood by Pulse oximetry Systolic And Diastolic Provider Name and Address Organization Details Last Updated DateTime 5 154.94 cm 27.4 kg/m2 79636.8 9 g 20 /min 80 /min 91 % 91 % 156/69 mm[Hg] Brielle Weberams [place] - [facility] 5 08:18:03 Social History Question Answer Notes LastModified by Organizat ion Details LastModified Time Tobacco Smoking Status Former Smoker Steve lindquist, [place] - [facility] 11/26/2023 10:10:16 When Did You Quit Smoking? 1-5yearssinc [email or web address] te Information not available 11/26/2023 What Was The Date Of Your Most Recent Tobacco Screening? 08/22/2024 [email or web address] Information not available 08/22/2024 Has Tobacco Cessation Counseling Been Provided? Yes Information not available 11/26/2023 On What Date Was Tobacco Cessation Counseling Provided? 08/22/2024 [email or web address] Information not available 08/22/2024 Sex: Female Functional [...] or 50 mcg/0.25mL dose 04/11/2020 completed Steve Felixurn ameena, [place] - [facility] 11/26/2023 10:02:01 COVID-19, mRNA, LNP-S, PF, 100 mcg/0.5mL dose or 50 mcg/0.25mL dose 05/18/2020 completed Steve Felixurn ameena, [place] - [facility] 11/26/2023 10:02:01 Past Encounters Encounter ID Performer Location Encounter Start Date Encounter Closed Date Diagnosis/Indication Diagnosis SNOMED-CT Code Diagnosis ICD10 Code Diagnosis Note [id number] [facility] [address] [place] [id number] 07/24/2006 00:00:00 [id number] [facility] [address] [place] [id number] 08/18/2006 00:00:00 [id number] YANI Donald [facility] [address] [facility] [id number] 11/26/2023 09:52:47 11/26/2023 10:51:51 Type 2 diabetes mellitus 82936279 E11.65 chronic [id number] YANI Donald [facility] [address] [id number] 01/29/2024 09:46:22 01/29/2024 10:37:19 Diabetes mellitus 35214357 E11.9 chronic [id number] YANI Donald [facility] [address] [facility] [place] [id number] 03/30/2024 12:37:40 03/30/2024 13:40:56 Diabetes mellitus 25134515 E11.9 [facility] [id number] [facility] [address] [address] 07/04/2024 12:29:00 07/04/2024 14:07:54 Overweight 609985066 E66.3 Overweight in adulthood with body mass index of 25 or more but less than 30 226778649 Z68.27 Diabetes mellitus 692340 09 E11.9 A1c 7.0 controlled , resume Dexcom G7 if insurance covers. Eye exam done in office. Foot exam done in office. Viral scre ening status 516874636 Z11.59 Primary hypothyroidism 29880915 E03.9 Last TSH unknown. Levothyrox ine 75 mcg daily. Currently taking I discussed thyroid disease and follow-up. The goal is to maintain TSH level between 0.5 and 2.5 mu/L and FT4 within normal range. Essential hypertension 20787288 I10 BP 162/66 P86. uncontroll ed. Continue metoprolol succ ER 25mg daily. Start losartan 100mg daily. [id number] [facility] [address] [address] 08/22/2024 08:48:24 08/22/2024 11:51:02 Adult health examination 271442057 Z00.00 Depression screening 171 126594 Z13.31 A depression screening was completed via a standardiz ed screening tool. 5 minutes were spent discussing depression screening results and risk factors. Examinatio n of blood pressure 518277464 Z01.30 BP 151/69, uncontroll ed - states her BP is high because her insurance would not approve portable oxygen, wears oxygen at home but cannot carry it when she leaves the house. Diet education 00233401 Z71.3 Counseling 903400549 Z71 .82 Exercise counseling . Patient encouraged to exercise 30 minutes 5 days a week. At [facility] ed risk for falls 527410926 Z91.81 STEADI FAST screening score of _6___. Advance care planning 71 2146924 Z71.89 Body mass index 25-29 - overweight 365071760 E66.3 Overweight 335900598 E66 .3 Postmenopa usal osteoporosis 831633089 M81.0 Screening mammography 24 798303 Z12.31 Diabetes mellitus 116339 09 E11.9 A1c 7.0 controlled . [id number] Blaire chavez [facility] [address] [place] [address] 10/05/2024 07:56:47 10/05/2024 08:49:06 Primary hypothyroidism 53582793 E03.9 07/04/24 TSH 0.379 Continue levothyrox ine 50mcg daily, I discussed thyroid disease and follow-up. The goal is to maintain TSH level between 0.5 and 2.5 mu/L and FT4 within normal range. Diabetes mellitus 966511 09 E11.9 A1c 6.6 controlled , improved. Overweight in adulthood with body mass index of 25 or more but less than 30 425884177 E66.3 Z68.27 [id number] Blaire chavez [facility] [address] [place] [address] 09/14/2024 12:07:51 09/14/2024 14:16:05 Diabetes mellitus 69258296 E11.9 07/04/24 A1c 7.0 controlled . Health Concerns Section Related Observation LastModified by Organization Detai ls LastModified Time None Recorded Concern Status LastModified by Organization Details LastModified Time None Recorded Advance Directives Directive None Recorded Payers Insurance Date Sequence Insurance Name Policy Number Policy Richardson Covered Member ID Richardson Member ID Guarantor Name 10/02/2024 [employer] [id number] Roxann Domínguez Mala [id number] 1 Roxann Medeiros 03/30/2024 2 [place] Roxann Mala [id number] 1 Roxann Mala 10/05/2024 1 [employer] (MEDICARE REPLACEMENT/A DVANTAGE - PPO) Roxann Domínguez Mala [id number] Roxann Medeiros Notes Date Note Type Note Provider Name and Address Organization Details Recorded Time 03/30/2024 text/html Diabetes F/URepo rted bypatient.Review finger sticks:Wears CGM Average: 201 Context:not missing doses of medications; no side effects from medications Dori Fournier, [employer] [address], [place], [address], [place] - [facility] 03/30/2024 13:59:23 07/04/2024 text/html 69 y/o f present s today to establish care for diabetes. Reports she was using DexCom but has not had this for 3 months. Taking Ozempic 1 mg weekly. Denies complaints. Blaire Adrian rt, [employer] [address], [place], [address], [place] - [facility] 07/04/2024 16:35:19 08/22/2024 text/html Medicare Annual Wellness VisitReported bypatient.Diet [...] She is fasting today. Blaire Adrian rt, [employer] [address], [place], [address], [employer] - [facility] 08/22/2024 16:07:04 09/14/2024 text/html 69 y/o f present s today for diabetes follow up and medication refills and discuss side effect of Ozempic. Blaire Adrian rt, [employer] [address], [place], [address], [employer] - [facility] 09/14/2024 13:52:55 10/05/2024 text/html 69 y/o f present s today for diabetes follow up. She is fasting today.She will need repeat CMP and thyroid labs. Orders already chart. Denies complaints. Blaire Adrian rt, [employer] [address], [place], [address], [employer] - [facility] 10/05/2024 08:44:37 OBGyn Episode No OBEpisode recorded.
--- NOTE | 2024-10-10 09:45 | CA_ITS ---
APPROVED REPORT EXAM: Comprehensive 2D, Doppler, and color-flow Echocardiogram Herb Doctor: Abigail Vicente RT(R) Ht: 5 ft 1 in Wt: 142lbs BSA: 1.63 BP: 164/62 mmHg Indications: dyspnea, hx CABG 2D Dimensions LA Volume 37.80 mL LA Volume Index 23.19 mL/m2 (M/F) 16-34 EF AP4 55.00 % GL Strain -21.4 % M-Mode Dimensions RVDd 2.01 cm (0.9-2.6) LA Diam 4.12 cm (1.9-4.0) LVDd 4.21 cm (3.5-5.7) LVDs 3.11 cm (3.5-5.7) IVSd 1.10 cm (0.6-1.1) PWd 1.02 cm (0.6-1.1) EF (Teich) 51.60% FS 26.10% EDV (Teich) 79.00 mL TAPSE 1.03 (<1.7) ESV (Teich) 38.20 mL LV Diastology E Decel Time 217 (160-240 msec) E/A Ratio 1.33 Mitral Valve MV A Velocity 90.0 (40-130 cm/s) E/A Ratio 1.33 MV PHT 77.0 ms Tricuspid Valve TR P. Velocity 274.00 cm/s Left Ventricle The left ventricle is normal size. The left ventricular systolic function is normal. The left ventricular ejection fraction is within the normal range. There is increased LV wall thickness. There is normal LV segmental wall motion. Grade 2 diastolic dysfunction is present. LVEF is 55%. Right Ventricle Right ventricle is mildly dilated. The right ventricular systolic function is normal. Atria Left atrium is moderately dilated. Right atrium is moderately dilated. There is no Doppler evidence of interatrial shunt. Aortic Valve The aortic valve is mildly thickened. There is no aortic valvular stenosis. Mild aortic regurgitation. Mitral Valve There is moderate mitral annular calcification. The mitral valve is moderately thickened. No evidence of mitral valve stenosis. Mean MV gradient 4 mmHg (HR 74 bpm). Mild mitral regurgitation. Tricuspid Valve Tricuspid valve is grossly normal in structure and function. Mild tricuspid regurgitation. RVSP is 30-35 mmHg. Pulmonic Valve The pulmonary valve is normal in structure. Mild to moderate pulmonic regurgitation. Great Vessels The aortic root is normal in size. IVC is normal in size and collapses >50% with inspiration. Pericardium There is no pericardial effusion. Other Information Study Quality: Fair Conclusion Normal biventricular systolic function. Grade 2 diastolic dysfunction is present. Mild RV dilation. Biatrial dilation. Moderate MAC. Thickened MV leaflets. Mild MR. No MS (mean MV gradient 4 mmHg). Mild AI, mild TR. Mild to moderate [place]. Electronically signed by : Alicja Doe MD 10/10/2024 11:58:44
[2024-10-10 13:23] LABS: Microscopic, Urine URINE MICROSCOPIC (MICROSCOPIC)
--- NOTE | 2024-10-10 13:39 | XR_ITS ---
FINAL REPORT CLINICAL HISTORY: cough,copd COMPARISON: None FINDINGS: PA and lateral views of the chest were obtained. No acute pulmonary opacities present. There is no evidence of effusion or pneumothorax. There is evidence of prior median sternotomy, presumably from CABG. Otherwise mediastinum is unremarkable. The heart is normal in size. IMPRESSION: Unremarkable chest, status post CABG. Reviewed, Interpreted and Dictated by Mendy Thrasher MD Transcribed by Alea Parada Authenticated and . [facility]
--- NOTE | 2024-10-10 14:00 | CT_ITS ---
FINAL REPORT TECHNIQUE: The patient was injected with IV contrast. Axial images were obtained of the chest by computed tomography. Precontrast images were also obtained. This study was performed with techniques to keep radiation doses as low as reasonably achievable (ALARA). Individualized dose reduction techniques using automated exposure control or adjustment of mA and/or kV according to the patient's size were employed. CLINICAL HISTORY: abnl ecg COMPARISON: CTA chest 05/03/2021 FINDINGS: CT OF THE CHEST WITH AND WITHOUT CONTRAST: There is a enlarged lymph node in the anterior mediastinum measuring up to 14 mm. No other sites of adenopathy are noted. There is a small hiatal hernia. Heart size is normal. There is no pericardial or pleural effusion identified. Emphysema is noted. Scarring is noted. No evidence of lung mass. No evidence of pneumonia. Limited images of the upper abdomen demonstrate cirrhosis with evidence of portal hypertension. IMPRESSION: Chronic lung changes. Mild anterior mediastinal adenopathy, most likely reactive. Cirrhosis with portal hypertension. Reviewed, Interpreted and Dictated by Mendy Thrasher MD Transcribed by Alea Parada Authenticated and [facility]
[2024-10-10 14:23] LABS: Hematocrit 34.6 % (37.0-47.0); Hemoglobin 10.3 g/dL (12.2-16.2); Immature Granulocytes % 0.3 %; Mean Corpuscular HGB Conc 29.8 g/dL (31.8-35.4); Mean Corpuscular Hemoglobin 25.7 pg (27.0-31.2); Mean Corpuscular Volume 86.3 fl (81-99); Nucleated Red Blood Cells % 0 %; Platelet Count 113 K/mm3 (142-424); Red Blood Count 4.01 M/mm3 (4.20-5.40); Red Cell Distribution Width-SD 61.1 fL; White Blood Count 3.7 K/mm3 (4.8-10.8)
[2024-10-10 14:24] LABS: Bilirubin,Urine Negative (Negative); Color,Urine YELLOW (Yellow); Glucose,Urine (UA) Negative (Negative); Ketones,Urine Negative (Negative); Leukocyte Esterase,Urine 1+ (Negative); PH,Urine 6.0 (5.0-8.5); Protein,Urine Negative (Negative); Specific Gravity, Urine 1.020 (1.005-1.030); Urobilinogen,Urine 1.0 EU/dl (0.2)
[2024-10-10 14:43] LABS: Bacteria,Urine 1+ /lpf; Calcium Oxalate Crystals,Urine Trace /lpf
[2024-10-10 14:49] LABS: Albumin Level 4.1 g/dl (3.5-5.0)
[2024-10-10 14:50] LABS: Chloride 97 mmol/L (98-107); Potassium 3.2 mmoL/L (3.5-5.1); Sodium 134 mmol/L (136-145)
[2024-10-10 14:52] LABS: Alanine Aminotransferase 20 U/L (12-78); Aspartate Amino Transferase 42 U/L (14-36); Bilirubin,Unconjugated 0.7 mg/dL (0.0-1.1); Blood Urea Nitrogen 10 mg/dl (7-17); Carbon Dioxide 26 mmol/L (22.0-30.0); Creatinine,Serum 1.10 mg/dl (0.52-1.04); Estimated Glomerular Filt Rate 49 ml/min (>60); GFR (African American) 59 ML/MIN (>60)
[2024-10-10 14:53] LABS: Alkaline Phosphatase 100 U/L (38-126); Bilirubin,Direct 0.8 mg/dl (0.0-0.4); Bilirubin,Indirect 0.6 mg/dL (0.0-0.9); Bilirubin,Total 1.4 mg/dl (0.2-1.3); Calcium 9.1 mg/dl (8.4-10.2); Cholesterol 191 mg/dl (140-200); Glucose 219 mg/dl (74-100); HDL Cholesterol 40 mg/dl (40-60); Iron 68 ug/dL (37-170); Magnesium 1.7 mg/dl (1.6-2.3); Total Protein,Serum 7.1 g/dl (6.3-8.2); Triglycerides 134 mg/dl (30-150)
[2024-10-10 14:56] LABS: Anion Gap 14.2 mEq/L (5-15)
[2024-10-10 15:05] LABS: Total Iron Binding Capacity 464 ug/dL (265-497)
[2024-10-10 15:12] LABS: 25-OH Vitamin D, Total 35.8 ng/mL (30-100)
[2024-10-10 15:14] LABS: Free T4 (Free Thyroxine) 1.61 ng/dl (0.78-2.19)
[2024-10-10] MEDS: SODIUM CHLORIDE 0.9% 10ML SYR (RAD ONLY) 10 ML IV (15:24)
[2024-10-10] MEDS: IOPAMIDOL-370 (76%);100ML BOTTLE 75 ML IV (15:24)
[2024-10-10 15:29] LABS: Ferritin 15.3 ng/ml (11.1-264); Thyroid Stimulating Hormone 3.21 uIU/mL (0.465-4.68)
[2024-10-10 16:04] LABS: Folate 7.62 ng/mL
[2024-10-12 15:11] LABS: Albumin, U 36.7 % (.); Alpha-1-Globulin, U 1.2 % (.); Alpha-2-Globulin, U 16.9 % (.); Beta Globulin, U 28.5 % (.); Gamma Globulin, U 16.7 % (.)
[2024-10-14 15:40] LABS: PDF: SCANNED IMAGE
== END 2024-10-10 23:59 | disposition home or self-care (01) ==
PROVIDERS: Internal Medicine; PCP Family Medicine; Visit Provider Physician Assistant
DX: I08.8 Other rheumatic multiple valve diseases (principal); K74.60 Unspecified cirrhosis of liver; K76.6 Portal hypertension; I13.10 Hypertensive heart and chronic kidney disease without heart failure, with stage 1 through stage 4 chronic kidney disease, or unspecified chronic kidney disease; N18.30 Chronic kidney disease, stage 3 unspecified; N17.9 Acute kidney failure, unspecified; M54.9 Dorsalgia, unspecified; D69.6 Thrombocytopenia, unspecified; D64.9 Anemia, unspecified; I73.9 Peripheral vascular disease, unspecified; R94.31 Abnormal electrocardiogram [ECG] [EKG]; J44.9 Chronic obstructive pulmonary disease, unspecified; E11.9 Type 2 diabetes mellitus without complications; I25.119 Atherosclerotic heart disease of native coronary artery with unspecified angina pectoris; I65.29 Occlusion and stenosis of unspecified carotid artery; E78.5 Hyperlipidemia, unspecified; Z95.5 Presence of coronary angioplasty implant and graft; I48.91 Unspecified atrial fibrillation; R59.0 Localized enlarged lymph nodes; R91.8 Other nonspecific abnormal finding of lung field
CPT/HCPCS: 36415; 71046; 71270; 80048; 80061; 80076; 81001; 82306; 82728; 82746; 83540; 83550; 83735; 84156; 84166; 84439; 84443; 85025; 87086; 93306; Q9967

== ENCOUNTER 2024-10-25 12:48 | Outpatient (CLI) | payer MEDICARE, SELFPAY ==
--- OUTSIDE RECORDS SUMMARY | 2024-10-25 12:51 | XMS_ITS | Clinical Summary ---
Author Organization Healthcare Address [address] [place] [address] Care Team Providers Care Compounder Name Role Phone Jeanmarie Gordon MD Primary Care Provider Brad De La Cruz MD Unavailable Allergies [...] not swallow. 6 g 3 Active Tiotropium [place] Monohydrate (Spiriva Respimat) 2.5 MCG/ACT inhaler Inhale [...] Administration Dates Next Due Moderna COVID-19 Vaccine (Marketing Project Specialist) 12+ years ,04/11/2020 Family History Medical History [...] drink first t tony in the morning (EYE-REFRIGERATION SERVICE INSPECTOR) to steady your nerves or to get [...] - Risk 60-74 years 1-dose series) 2013 [id number] Vaccine (3 - Moderna risk series) 06/15/2020 05/18/2020, 04/11/2020 [facility]-Diabetes: Hemoglobin A1C 04/16/2023 10/17/2022 [facility]-Influenza Vaccine (#1) 2024 [facility]-Obesity Intervention [...] this topic Medical Devices Implanted Type Area Reception Specialist Device Identifier Shelf Expiration Date Model / Serial / Lot Screw Screw N/A: Neck Atriclip Flex V 40mm - [id number] Implanted:Qty: 1 on 10/24/2022 by Kiana Pinedo MD at [facility] N/A: Heart [id number] 07/21/2025 [facility]40 / / [id number] Procedures Procedure Name Priority Date/Time Associated Diagnosis [...] Adults <6.0% Children and Adolescents <7.5% Source: [place] [employer]. Standards of medical care in diabetes,2017. Diabetes Care.2017:40 (suppl 1):S1-S135. HbA1c assay performed by an ion-exchange chromatography method that is certified traceable to the DCCT. us [facility] BLOOD ORDERABLES Final R esult [facility] [address] [place] [address] from Last 3 Months or Most Recently [...] Patient has decision-making capacity? Yes Care Teams Compounder Relationship Specialty Start Date End Date Jeanmarie Gordon MD [address] [place] [address] PCP - General 10/18/21 Brad De La Cruz MD [address] [facility] [address] [place] [id number] Referring Physician Cardiology 10/22/22
--- OUTSIDE RECORDS SUMMARY | 2024-10-25 12:51 | XMS_ITS | Clinical Summary ---
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
--- OUTSIDE RECORDS SUMMARY | 2024-10-25 12:51 | XMS_ITS | Clinical Summary ---
Author Organization [facility] Address [address] [place] [address] Care Team Providers Care Calciner Operator Helper Name Role Phone Unavailable Primary Care Provider Unavailabl e Encounters Date Type Department Care Team Description 08/22/2024 Transcribe Orders Centralized Scheduling [address] [place] [address] Blaire Russo APRN Visit for screening mammogram [...] patient's age to complete this topic Insurance [facility]
--- OUTSIDE RECORDS SUMMARY | 2024-10-25 12:51 | XMS_ITS | Encounter Summary ---
Author Organization Healthcare Address [address] [place] [address] Care Team Providers Care Paper Reclaiming Machine Operator Name Role Phone Jeanmarie Gordon MD Primary Care Provider [phone] Brad De La Cruz MD Unavailable [phone] Encounter Details Date Type Department Care Team (Late st Contact Info) Description 10/27/2022 Lab Requisition [facility] [address] [place] [address] Vangie Brink MD [address] [address] Encounter for general adult medical [...] drink first t tony in the morning (EYE-REFINING SUPERVISOR) to steady your nerves or to [...] Risk Indicated 10/28/2022 8:00 PM EDT Rain Rhodes RN * Question Answer Date of Assessment Author 1. Wish to be (Past 1 Month) No 10/28/2022 8:00 PM EDT Rain Sepulveda RN 2. Non-Specific Active Suicidal Thoughts (Past 1 Month) No 10/28/2022 8:00 PM EDT Rain Sepulveda RN 3. Active Suicidal Ideation with any Methods (Not Plan) Without Intent to Act (Past 1 Month) No 10/28/2022 8:00 PM EDT Rain Sepulveda RN 4. Active Suicidal Ideation with Some Intent to Act, Without Specific Plan (Past 1 Month) No 10/28/2022 8:00 PM EDT Ace Sepulveda RN 5. Active Suicidal Ideation with Specific Plan and Intent (Past 1 Month) No 10/28/2022 8:00 PM EDT Rain Sepulveda RN 6. Suicidal Behavior (Lifetime) No 10/28/2022 8:00 PM EDT Rain Sepulveda RN documented [...] GENERAL ORDERABLES Final Result Performing Organization Address City/State/[facility] Co de Phone Number HEALTHCARE [facility] [address] [place] [address] documented in this encounter Visit Diagnoses Diagnosis Encounter for general adult medical examination without abnormal findings documented in this encounter Care Teams Paper Reclaiming Machine Operator Relationship Specialty Start Date End Date Jeanmarie Gordon MD [address] [place] [address] PCP - General 10/18/21 Brad De La Cruz MD [address] [place] [address] [address] [place] [address] Referring Physician Cardiology 10/22/22 documented as of this encounter
[2024-10-25 13:07] LABS: Hematocrit 37.1 % (37.0-47.0); Hemoglobin 11.3 g/dL (12.2-16.2); Immature Granulocytes % 0.2 %; Mean Corpuscular HGB Conc 30.5 g/dL (31.8-35.4); Mean Corpuscular Hemoglobin 26.2 pg (27.0-31.2); Mean Corpuscular Volume 86.1 fl (81-99); Nucleated Red Blood Cells % 0 %; Platelet Count 133 K/mm3 (142-424); Red Blood Count 4.31 M/mm3 (4.20-5.40); Red Cell Distribution Width-SD 61.0 fL; White Blood Count 5.7 K/mm3 (4.8-10.8)
[2024-10-25 13:15] LABS: Activated Partial Thrombo Time 25.4 seconds (22.8-30.6); INR 1.15 (0.9-1.1); Prothrombin Time 12.6 seconds (10.1-12.5)
[2024-10-25 14:04] LABS: Iron 61 ug/dL (37-170)
[2024-10-25 14:13] LABS: Total Iron Binding Capacity 450 ug/dL (265-497)
[2024-10-25 14:39] LABS: Ferritin 16.8 ng/ml (11.1-264)
[2024-10-25 15:34] LABS: C-Reactive Protein 1.2 mg/L (0-4)
[2024-10-26 14:49] LABS: Antinuclear Antibodies (ANA) Negative (Negative)
[2024-10-29 01:16] LABS: Anti-CCP Abs,IgG and IgA (RDL) < 20 Units (<20)
== END 2024-10-25 23:59 | disposition home or self-care (01) ==
PROVIDERS: Internal Medicine Pulmonary Disease; PCP Family Medicine; Visit Provider Internal Medicine Medical Oncology
DX: J84.9 Interstitial pulmonary disease, unspecified (principal); D69.6 Thrombocytopenia, unspecified; D50.8 Other iron deficiency anemias
CPT/HCPCS: 36415; 82728; 83540; 83550; 85025; 85610; 85730; 86140; 86200

== ENCOUNTER 2024-12-28 09:26 | Outpatient (CLI) | payer MEDICARE, SELFPAY ==
[2024-12-28 09:50] LABS: Hematocrit 40.4 % (37.0-47.0); Hemoglobin 13.2 g/dL (12.2-16.2); Immature Granulocytes % 0.3 %; Mean Corpuscular HGB Conc 32.7 g/dL (31.8-35.4); Mean Corpuscular Hemoglobin 31.1 pg (27.0-31.2); Mean Corpuscular Volume 95.1 fl (81-99); Nucleated Red Blood Cells % 0 %; Platelet Count 117 K/mm3 (142-424); Red Blood Count 4.25 M/mm3 (4.20-5.40); Red Cell Distribution Width-SD 58.7 fL; White Blood Count 6.6 K/mm3 (4.8-10.8)
[2024-12-28 10:45] VITALS: PULSE 68; PULSE 74
[2024-12-28] MEDS: ALBUTEROL 0.083% 2.5 MG/3 ML NEB IH (10:45)
[2024-12-28 11:22] LABS: Iron 126 ug/dL (37-170)
[2024-12-28 11:32] LABS: Total Iron Binding Capacity 304 ug/dL (265-497)
[2024-12-28 12:00] LABS: Ferritin 70.9 ng/ml (11.1-264)
== END 2024-12-28 23:59 | disposition home or self-care (01) ==
LOC: RT 09:28
PROVIDERS: Internal Medicine Medical Oncology; PCP Family Medicine; Visit Provider Internal Medicine Pulmonary Disease
DX: D64.9 Anemia, unspecified (principal); D69.6 Thrombocytopenia, unspecified; R94.2 Abnormal results of pulmonary function studies
CPT/HCPCS: 36415; 82728; 83540; 83550; 85025; 94060; 94618; 94640; 94726; 94729

== ENCOUNTER 2025-03-20 16:35 | Outpatient (CLI) | payer MEDICARE, SELFPAY ==
--- OUTSIDE RECORDS SUMMARY | 2025-03-20 16:38 | XMS_ITS | Clinical Summary ---
Author Organization Healthcare Address [address] [place] [address] Care Team Providers Care Agriculture Inspector Name Role Phone Jeanmarie Gordon MD Primary Care Provider [phone] Brad De La Cruz MD Unavailable [phone] Yves Roque MD Unavailable [phone] Allergies No known active allergies Medications aspirin [...] not swallow. 6 g 3 Active Tiotropium Marlow Monohydrate (Spiriva Respimat) 2.5 MCG/ACT inhaler Inhale [...] without esophagi tis 10/18/2022 BMI 29.0-29.9,adult 10/18/2022 Encounters Date Type Department Care Team Description 03/01/2025 Telephone [facility] [address] [address] Aminah Marcos Appointment 02/21/2025 Telephone [facility] [address] [place] [address] Aminah Marcos from Last 3 Months Immunizations Immunization Administration Dates Next Due Moderna COVID-19 Vaccine (Ems Instructor) 12+ years ,04/11/2020 Family History Medical History Relation Name Comments Heart disease Brother 1 Heart disease Brother 2 Heart disease Father Heart disease Mother Relation Name Status Comments Brother 1 Brother 2 Father Mother Social History Tobacco Use Types Packs/Day Years Used Date Smoking Tobacco: Former Cigarettes 1 15 2 004 - 2019 Smokeless Tobacco: Never Tobacco Cessation:Counseling Given: Not [...] drink first t tony in the morning (EYE-DIAL SCREW ASSEMBLER) to steady your nerves or to get [...] Health Maintenance Due Date Last Done Comments [facility]-Bone Density Scan 1953 [facility]-Depression Screening 1953 [facility]-Hepatitis C Screening 1953 [facility]-Medicare Annual Wellness (AWV) 1953 [facility]-/Child/Adol SDOH Screenings 1953 Diabetes: Dental Exam 1963 [facility]- SDOH Screenings 1971 [facility]-Adult SDOH Screenings 1971 [facility]-DTaP,Tdap,and Td Vaccine s (1 - Tdap) 1972 [facility]-Hepatitis A Vaccines (1 of 2 - Risk 2-dose series) 1972 [facility]-Pneumococcal Vaccine: 50 + Years (1 of 2 - PCV) 1972 [facility]-Zoster Vaccines (1 of 2) 1972 CT Colonography 1998 Colonoscopy 1998 FIT-DNA 1998 FIT 1998 FOBT 1998 Sigmoidoscopy 1998 [facility]-Colorectal Cancer Screening 1998 [facility]-Breast Cancer Screening 2003 [facility]-RSV Vaccine: 60+ Years o r (1 - Risk 50-74 years 1-dose series) 2003 [id number] Vaccine (3 - Moderna risk series) 06/15/2020 05/18/2020, 04/11/2020 [facility]-Diabetes: Hemoglobin A1C 04/16/2023 10/17/2022 [facility]-Influenza Vaccine (#1) 2024 [facility]-Obesity Intervention Completed 11/19/2022 HPV Vaccines (No Doses Required) Completed [facility]-HIB Vaccines Aged Out No longer e ligible based on patient's age to complete this topic [facility]-IPV Vaccines Aged Out No longer e ligible based on patient's age to complete this topic [facility]-Rotavirus Vaccines Aged Out No lo nger eligible based on patient's age to complete this topic Medical Devices Implanted Type Area Radar Engineering Teacher Device Identifier Shelf Expiration Date Model / Serial / Lot Screw Screw N/A: Neck Atriclip Flex V 40mm - [id number] Implanted:Qty: 1 on 10/24/2022 by Kiana Pinedo MD at [facility] N/A: Heart [id number] 07/21/2025 [id number] / / [id number] Procedures Procedure Name Priority Date/Time Associated Diagnosis Comments HEMOGLOBIN A1C Add-On 10/17/2022 10:12 PM EDT from Last 3 Months or Most Recently Relevant to Health Maintenance Results * (ABNORMAL) Hemoglobin A1c (10/17/2022 10:12 PM EDT) Hemoglobin A1c 9.3(H) <5.7 % 10/18/2022 9:51 AM EDT [facility] Blood Venous blood specimen / Unknown [...] Adults <6.0% Children and Adolescents <7.5% Source: [place] Diabetes Association. Standards of medical care in diabetes,2017. Diabetes Care.2017:40 (suppl 1):S1-S135. HbA1c assay performed by an ion-exchange chromatography method that is certified traceable to the DCCT. us [facility] BLOOD ORDERABLES Final R esult [facility] [address] [place] [address] from Last 3 Months or Most Recently Relevant to Health Maintenance [place] [address] [facility] MEDIC[facility] Advance Directives * Full Code (Latest Code Status on File) Date Activated Date Inactivated Comments 10/24/2022 12:50 PM 10/30/2022 6:31 PM Question Answer Comments Patient has decision-making capacity? Yes * Full Code Date Activated Date Inactivated Comments 10/17/2022 8:55 PM 10/24/2022 12:44 PM Question Answer Comments Patient has decision-making capacity? Yes Care Teams Agriculture Inspector Relationship Specialty Start [place] [address] PCP - General 10/18/21 Brad De La Cruz MD [address] [facility] [address] [place] [address] Referring Physician Cardiology 10/22/22 Yves Roque MD [address] [place] [address] Referring Physician Gastroenterology 02/21/25
--- OUTSIDE RECORDS SUMMARY | 2025-03-20 16:38 | XMS_ITS | Encounter Summary ---
Author Organization Healthcare Address [address] [place] [address] Care Team Providers Care Shiatsu Therapist Name Role Phone Jeanmarie Gordon MD Primary Care Provider [phone] Brad De La Cruz MD Unavailable [phone] Yves Roque MD Unavailable [phone] Reason for Visit * Reason Comments Appointment Encounter Details Date Type Department Care Team (Late st Contact Info) Description 03/01/2025 Telephone [facility] [address] [place] [address] Aminah Marcos [phone] Appointment Social History Tobacco Use Types Packs/Day Years Used Date Smoking Tobacco: Former Cigarettes 15 - 2018 Smokeless Tobacco: Never Alcohol Use Standard Drinks/Week [...] drink first t tony in the morning (EYE-JACQUARD CARD CUTTER) to steady your nerves or to get [...] file Not on file Not on file documented as of this encounter Miscellaneous Notes * Telephone Encounter - Aminah Marcos - 03/01/2025 9:00 AM EST Called and spoke with patient's daughter Juliana and offered to schedule new patient appointment, Juliana advised right now they are wanting to get her mom in to see another doctor and would like to get that done before scheduling an appointment with transplant. Provided my contact information for Juliana to call back when/if they're ready to schedule. Juliana verbalized understanding. documented in this encounter Plan of Treatment Not on file documented as of this encounter Visit Diagnoses Not on filedocumented in this encounter Additional Health Concerns Assessment Noted Time A fall risk assessment has been complete d for the patient 11/19/2022 9:25 AM EDT A Body Mass Index follow-up plan has been documented for the patient 11/19/2022 11:25 AM EDT documented as of this encounter Care Teams Shiatsu Therapist Relationship Specialty [place] [address] PCP - General 10/18/21 Brad De La Cruz MD [address] [place] [address] [address] [place] [address] Referring Physician Cardiology 10/22/22 Yves Roque MD [address] [place] [address] Referring Physician Gastroenterology 02/21/25 documented as of this encounter
--- OUTSIDE RECORDS SUMMARY | 2025-03-20 16:38 | XMS_ITS | Encounter Summary ---
Author Organization Healthcare Address [address] [place] [address] Care Team Providers Care Medical Records Specialist Name Role Phone Jeanmarie Gordon MD Primary Care Provider [phone] Brad De La Cruz MD Unavailable [phone] Yves Roque MD Unavailable [phone] Encounter Details Date Type Department Care Team (Late st Contact Info) Description 10/27/2022 Lab Requisition [facility] [address] [place] [address] Vangie Brink MD [address] [address] Encounter for general adult medical [...] drink first t tony in the morning (EYE-DOWELING MACHINE OPERATOR) to steady your nerves or to get [...] LAB MICROBIOLOGY - GENERAL ORDERABLES Final Result [facility] [address] [place] [address] documented in this encounter Visit Diagnoses Diagnosis Encounter for general adult medical examination without abnormal findings documented in this encounter Care Teams Medical Records Specialist Relationship Specialty Start [place] [address] PCP - General 10/18/21 Brad De La Cruz MD [address] [facility] [address] [place] [address] Referring Physician Cardiology 10/22/22 Yves Roqeu MD [address] [place] [address] Referring Physician Gastroenterology 02/21/25 documented as of this encounter
--- OUTSIDE RECORDS SUMMARY | 2025-03-20 16:38 | XMS_ITS | Clinical Summary ---
Author Organization [facility] Address [address] [place] [address] Care Team Providers Care Pneudraulic Systems Mechanic Name Role Phone Unavailable Primary Care Provider Unavailabl e Social History Tobacco Use Types Packs/Day Years [...] orosis Screen) 2018 INFLUENZA VACCINE (#1) 2024 CT Colonography Completed HEP A VACCINE Aged Out No longer elig ible based on patient's age to complete this topic HIB VACCINE Aged Out No longer eligi ble based on patient's age to complete this topic ROTOVIRUS VACCINE Aged Out No longer eligible based on patient's age to complete this topic Insurance [facility]
--- OUTSIDE RECORDS SUMMARY | 2025-03-20 16:38 | XMS_ITS | Encounter Summary ---
Author Organization Healthcare Address [address] [place] [address] Care Team Providers Care Mold Runner Name Role Phone Jeanmarie Gordon MD Primary Care Provider [phone] Brad De La Cruz MD Unavailable [phone] Yves Roque MD Unavailable [phone] Reason for Referral * Transplant (Routine) - Authorized Specialty Diagnoses / Procedures Referred By Contac t Referred To Contact Transplant Diagnoses End-stage liver disease (CMS/HCC) Yves Roque MD [address] [place] [address] Phone: tel: fax: [facility] [address] [address] Phone: tel: fax: Referral ID Status Reason Start Date Expiration Date Visits Requested Visits Authorized [id number] Authorized Specialty Services Required 02/21/2025 08/23/[phone] Encounter Details Date Type Department Care Team (Late st Contact Info) Description 02/21/2025 Telephone [facility] [address] [address] Aminah Marcos [id number] Social History Tobacco Use Types Packs/Day Years Used Date Smoking Tobacco: Former Cigarettes 1 15 2 - 2019 Smokeless Tobacco: Never Alcohol Use Standard Drinks/Week [...] drink first t tony in the morning (EYE-ASSEMBLY LINE BRAZER) to steady your nerves or to get [...] * Telephone Encounter - Aminah Marcos - 02/21/2025 11:40 AM EST Called referring provider's office, left message for Elba requesting additional records, labs,EGD/colonoscopy reports, and written radiology reports. * Telephone Encounter - Aminah Marcos - 02/21/2025 11:23 AM EST New pre liver referral from Mya Marinelli, scheduling pending financial clearance. documented in this encounter Plan of Treatment Scheduled Referrals Name Type Priority Associated Diagnoses Order Schedule Ambulatory referral to Solid Organ Transplant Team Outpatient Referral Routine End-stage liver disease (CMS/HCC) Ordered: 02/21/2025 documented as of this encounter Visit Diagnoses Diagnosis End-stage liver disease (CMS/HCC)- Primary Other sequelae of chronic liver disease documented in this encounter Additional Health Concerns Assessment Noted Time A fall risk assessment has been complete d for the patient 11/19/2022 9:25 AM EDT A Body Mass Index follow-up plan has been documented for the patient 11/19/2022 11:25 AM EDT documented as of this encounter Care Teams Mold Runner Relationship Specialty [place] [address] PCP - General 10/18/21 Brad De La Cruz MD [address] [facility] [address] [place] [address] Referring Physician Cardiology 10/22/22 Yves Roque MD [address] [place] [address] Referring Physician Gastroenterology 02/21/25 documented as of this encounter
--- OUTSIDE RECORDS SUMMARY | 2025-03-20 16:38 | XMS_ITS ---
Author Organization [facility] Address [address] [place] [address] Care Team Providers Care Service Center Coordinator Name Role Phone Jeanmarie Gordon MD Primary Care Provider [phone] Brad De La Cruz MD Unavailable Yves Roque MD Unavailable [phone] Transplant Episode Liver Candidate [facility] ([place], [place]) - [facility] Referred on 02/21/2025 Marked as Internal Hold on 03/01/2025 Reason: Patient Choice Liver CoordinatorAminah Marcos Phone: N/A Fax: N/A Email: N/A Care Team Name Role Phone Fax Email Aminah Marcos Liver Coordinator N/A N/A N/A Yves Roque MD Referring Physician [phone] N/A Neri Garcia MD Surgeon [phone] N/A Martha Mendoza LCSW Waterproof Coating Machine Tender N/A N/A N/A Events Pre-Transplant Referred: 02/21/2025
--- OUTSIDE RECORDS SUMMARY | 2025-03-20 16:38 | XMS_ITS | Clinical Summary ---
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
[2025-03-20 17:08] LABS: Hematocrit 38.1 % (37.0-47.0); Hemoglobin 12.8 g/dL (12.2-16.2); Immature Granulocytes % 0.1 %; Mean Corpuscular HGB Conc 33.6 g/dL (31.8-35.4); Mean Corpuscular Hemoglobin 34.5 pg (27.0-31.2); Mean Corpuscular Volume 102.7 fl (81-99); Nucleated Red Blood Cells % 0 %; Platelet Count 127 K/mm3 (142-424); Red Blood Count 3.71 M/mm3 (4.20-5.40); Red Cell Distribution Width-SD 61.8 fL; White Blood Count 7.1 K/mm3 (4.8-10.8)
[2025-03-20 17:14] LABS: Ammonia < 9 umol/L (9-30)
[2025-03-20 17:15] LABS: INR 1.13 (0.9-1.1); Prothrombin Time 12.4 seconds (10.1-12.5)
[2025-03-20 17:33] LABS: Albumin Level 3.6 g/dl (3.5-5.0); Chloride 100 mmol/L (98-107); Potassium 3.6 mmoL/L (3.5-5.1); Sodium 136 mmol/L (136-145)
[2025-03-20 17:35] LABS: Blood Urea Nitrogen 15 mg/dl (7-17); Creatinine,Serum 1.40 mg/dl (0.52-1.04); Estimated Glomerular Filt Rate 37 ml/min (>60); GFR (African American) 45 ML/MIN (>60)
[2025-03-20 17:36] LABS: Alanine Aminotransferase 19 U/L (12-78); Albumin/Globulin Ratio 0.9 (1.1-1.8); Alkaline Phosphatase 131 U/L (38-126); Anion Gap 10.6 mEq/L (5-15); Aspartate Amino Transferase 42 U/L (14-36); Bilirubin,Direct 0.7 mg/dl (0.0-0.4); Bilirubin,Indirect 3.8 mg/dL (0.0-0.9); Bilirubin,Total 4.5 mg/dl (0.2-1.3); Bilirubin,Unconjugated 3.8 mg/dL (0.0-1.1); Calcium 9.6 mg/dl (8.4-10.2); Carbon Dioxide 29 mmol/L (22.0-30.0); Globulin 3.8 g/dL (1.3-3.2); Glucose 103 mg/dl (74-100); Iron 177 ug/dL (37-170); Total Protein,Serum 7.4 g/dl (6.3-8.2)
[2025-03-20 17:47] LABS: Total Iron Binding Capacity 291 ug/dL (265-497)
[2025-03-20 18:11] LABS: Ferritin 150 ng/ml (11.1-264)
[2025-03-22 07:15] LABS: Immunoglobulin A, Qn 676 mg/dL (64-422); Immunoglobulin G, Qn 1459 mg/dL (586-1602); Immunoglobulin M, Qn 129 mg/dL (26-217)
[2025-03-22 11:29] LABS: Antinuclear Antibodies (ANA) Negative (Negative)
[2025-03-22 14:50] LABS: Deamidated Gliadin Abs, IgA 5 units (0-19); Deamidated Gliadin Abs, IgG 2 units (0-19)
[2025-03-23 21:22] LABS: ALT (SGPT) P5P 15 IU/L (0-40); AST (SGOT) P5P 38 IU/L (0-40); Alpha 2-Macroglobulins, Qn 269 mg/dL (110-276); Bilirubin, Total 3.6 mg/dL (0.0-1.2); Cholesterol, Total 167 mg/dL (100-199); GGT 30 IU/L (0-60); Glucose 102 mg/dL (70-99); Triglycerides 102 mg/dL (0-149)
== END 2025-03-20 23:59 | disposition home or self-care (01) ==
LOC: LAB 16:36
PROVIDERS: PCP Family Medicine; Visit Provider Nurse Practitioner Family
DX: K74.60 Unspecified cirrhosis of liver (principal)
CPT/HCPCS: 36415; 80053; 80074; 80321; 81256; 82103; 82104; 82105; 82140; 82164; 82172; 82247; 82248; 82390; 82465; 82728; 82784; 82947; 82977; 83010; 83521; 83540; 83550; 84450; 84460; 84478; 85025; 85610; 86015; 86038; 86231; 86258; 86364; 86376; 86381